=== PATIENT | male | born 1970 | race Caucasian/White ===

== ENCOUNTER → 2018-04-30 14:48 | Outpatient (CLI) | payer OTHER, SELFPAY ==
[2018-04-17 15:54] VITALS: BMI 41.8
--- NOTE | 2018-04-30 14:50 | ECHOD_ITS ---
Reason For Study: HTN Procedure This was a 2D Doppler, Color Flow transthoracic echocardiogram. Exam performed in department. Left Ventricle Normal LV size. Moderate concentric left ventricular hypertrophy. Left ventricular systolic function is normal. The estimated ejection fraction is 60 %. No regional wall motion abnormalities noted. Right Ventricle Normal RV size. Normal systolic function. Atria The left atrium is severely enlarged. The right atrium is mildly enlarged. Mitral Valve Normal mitral valve. Tricuspid Valve Normal tricuspid valve. Mild (1+) tricuspid valve insufficiency. Pulmonary artery systolic pressure is 28 mmHg. Aortic Valve Normal aortic valve. Pulmonic Valve Normal pulmonic valve. Great Vessels Normal aortic root. The pulmonary artery is normal size. Normal inferior vena cava. Pericardium/Pleural No pericardial effusion. MMode/2D Measurements & Calculations LVIDd: 4.8 cm IVSd: 1.7 cm Ao root diam: 3.9 cm LVIDs: 2.5 cm LVPWd: 1.5 cm LA dimension: 5.5 cm RVDd: 4.1 cm FS: 49.4 % LAV(MOD-bp): 162.0 ml LA A4 area: 41.7 cm2 RA A4 area: 25.7 cm2 LAV(MOD-bp) Indexed: 63.7 ml/m2 LAV(MOD-sp2): 127.5 ml LAV(MOD-sp4): 170.7 ml Time Measurements MV dec time: 0.19 sec Doppler Measurements & Calculations MV E max luigi: 74.3 cm/sec Med Peak E' Luigi: 7.4 cm/sec MV V2 max: 77.8 cm/sec MV A max luigi: 62.2 cm/sec E/E' med: 10.0 MV max P.4 mmHg MV E/A: 1.2 MV V2 mean: 35.0 cm/sec MV mean P.63 mmHg MV V2 VTI: 26.9 cm MV P1/2t max luigi: 79.3 cm/sec Ao V2 max: 141.6 cm/sec LV V1 max: 122.5 cm/sec MV P1/2t: 61.6 msec Ao max P.0 mmHg LV V1 max P.0 mmHg MV dec slope: 376.9 cm/sec2 MVA(P1/2t): 3.6 cm2 PA V2 max: 98.2 cm/sec TR max luigi: 243.1 cm/sec TR max P.6 mmHg Interpretation Summary Normal LV size. Moderate concentric left ventricular hypertrophy. Left ventricular systolic function is normal. The estimated ejection fraction is 60 %. Pulmonary artery systolic pressure is 28 mmHg. The left atrium is severely enlarged. Ordering Physician: Dinesh Mena Referring Physician: Reji Andre Performed By: Devon Robles RCS
== END ==
PROVIDERS: Family Provider Family Medicine; PCP Family Medicine; Referring Provider Internal Medicine Cardiovascular Disease; Visit Provider Internal Medicine Cardiovascular Disease
DX: I10 Essential (primary) hypertension (principal); I42.1 Obstructive hypertrophic cardiomyopathy
CPT/HCPCS: 93306

== ENCOUNTER → 2019-05-13 13:23 | Outpatient (CLI) | payer OTHER, SELFPAY ==
[2019-04-18 15:52] VITALS: BMI 42.7
[2019-05-13 09:11] LABS: Color, Urine Yellow (Yellow); Glucose, Dipstick Normal (Normal); Ketone-Dipstick Negative (Negative); Leukocyte Esterase-Dipstick Negative /ul (Negative); Nitrite-Dipstick Negative (Negative); Occult Blood-Urine Negative /ul (Negative); Protein-Dipstick Negative (Negative); Specific Gravity, Urine 1.015 (1.002-1.030); Urine Bilirubin Dipstick Negative (Negative); Urine Clarity Clear (Clear); Urine Urobilinogen Normal (Normal)
[2019-05-13 10:07] LABS: Absolute Lymphocyte Count 2.23 X10^3/uL (0.83-4.51); Absolute Neutrophil Count 2.2 X10^3/uL (2.0-7.7); Basophil# 0.04 X10^3/uL; Basophil% 0.8 % (0-1); Eosinophil# 0.22 X10^3/uL; Eosinophils% 4.2 % (0-5); Hematocrit 43.4 % (40-54); Hemoglobin 14.5 g/dL (13.0-16.5); Lymphocyte # 2.23 X10^3/ul (4.0); Lymphocyte % 42.5 % (19-41); Mean Corp Hgb Conc 33.4 g/dL (32-36); Mean Corpuscular Hgb 29.2 pg (27.0-32.0); Mean Corpuscular Volume 87.5 fL (80-94); Mean Platelet Vol. 9.8 fl (6.2-12.0); Monocyte# 0.51 X10^3/uL; Monocyte% 9.7 % (0-10); NRBC Flagged by Analyzer 0 % (0-5); Neutrophil # 2.23 X10^3/uL (2.7-7.7); Neutrophil % 42.4 % (47-70); Platelet Count 203 K/mm3 (150-450); RBC Distribution Width CV 13.6 % (11.6-14.6); Red Blood Count 4.96 M/mm3 (4.6-6.2); White Blood Count 5.3 K/mm3 (4.4-11.0)
[2019-05-13 10:48] LABS: AST(SGOT) 25 U/L (15-37); Alanine Aminotransfer ALT/SGPT 48 U/L (16-61); Albumin, Serum 3.8 g/dL (3.2-5.0); Alkaline Phosphatase 72 U/L (45-117); Anion Gap 7 (5-15); BUN 19 mg/dL (7-18); BUN/Creat Ratio 22.4 RATIO (10-20); Calcium,Total 8.5 mg/dL (8.5-10.1); Chloride 102 mmol/L (98-107); Cholesterol 148 mg/dL (200); Creatinine, Serum 0.85 mg/dL (0.70-1.30); EST Glomerular Filtration Rate 102 mL/min (>60); Est Glom Filt Rate - Afr Amer 124 mL/min (>60); Glucose 107 mg/dL (74-106); High Density Lipoprotein 46 mg/dL; Protein, Total 7.8 g/dL (6.4-8.2); Sodium Level 137 mmol/L (136-145); Triglycerides 196 mg/dL; Very Low Density Lipoprotein 39 mg/dL (5-40)
--- NOTE | 2019-05-13 13:23 | STEWCON_ITS ---
Reason For Study: Cardiomyopathy Stress Results Protocol: Andrew Protocol WITH DEFINITY Maximum Predicted HR: 172 bpm Target HR: 146 bpm % Maximum Predicted HR: 82 % DurationHeart Rate Stage (mm:ss) (bpm) BP Comment Baseline 52 118/84No Chest Pain; 6 ML Diluted Definity Andrew Protocol Stage I 3:00 82 134/72No Chest Pain Andrew Protocol Stage II 3:00 98 140/62No Chest Pain; Mild Dyspnea Andrew Protocol Stage III 3:00 127 142/74No Chest Pain; Moderate Dyspnea Andrew Protocol Stage IV 0:30 141 / No Chest Pain; Moderate Dyspnea Recovery 68 130/80No Chest Pain; No Dyspnea Stress Duration: 9:30 mm:ss Maximum Stress HR: 141 bpm METS: 11 Baseline Echocardiogram Findings Stress Echo Wall motion Data Resting WM Intermediate WM Stress WM MMode/2D Measurements & Calculations LVIDd: 5.0 cm IVSd: 1.3 cm LVIDs: 3.2 cm LVPWd: 1.3 cm FS: 35.2 % Interpretation Summary Exercise stress echo. 48-year-old man with a history of hypertrophic cardiomyopathy. Resting EKG. Resting EKG demonstrated sinus bradycardia with a rate of 51 bpm normal intervals are noted resting blood pressures 118/84 mmHg. The patient exercised according to regular Andrew protocol for total duration of 9 minutes and 30 seconds. The maximum heart rate attained was 142 bpm which was 82% of maximum predicted heart rate the maximum workload was 11.9 metabolic equivalents. At rest there were no ST or T wave changes noted suggest ischemia peak exercise upsloping ST changes only were noted with no meet the criteria for ischemia. No clinical angina was noted the test was terminated due to dyspnea. No arrhythmias were noted. The resting blood pressure was 118/84 with a peak blood pressure 158/80 mmHg. Stress echocardiogram. Stress echocardiographic images were obtained with Definity enhancement. The baseline echocardiogram demonstrated wall thickness of less than 1.7 cm. The estimated ejection fraction at rest was 65%. During exercise there was no chamber obliteration noted. No wall motion abnormalities were present. Conclusion: Exercise stress test with no EKG criteria for ischemia. Normal resting and stress echocardiographic images. Preserved ejection fraction. No arrhythmias noted. Excellent functional capacity Ordering Physician: Dinesh Mena Referring Physician: Reji Andre Performed By: Meme Baron, KAN, RVT
== END ==
PROVIDERS: PCP Family Medicine; Referring Provider Internal Medicine Cardiovascular Disease; Visit Provider Internal Medicine Cardiovascular Disease
DX: Z00.00 Encounter for general adult medical examination without abnormal findings (principal); I42.1 Obstructive hypertrophic cardiomyopathy; I10 Essential (primary) hypertension; Z12.5 Encounter for screening for malignant neoplasm of prostate
CPT/HCPCS: 36415; 80053; 80061; 81002; 84153; 85025; 93017; 93350; Q9957; A4216; C8928; G0103

== ENCOUNTER 2020-05-18 10:21 | Day surgery (SDC) | payer OTHER, SELFPAY ==
[2020-04-21 08:26] VITALS: BMI 44.1
--- NOTE | 2020-05-11 14:00 | RAD_ITS ---
STUDY: X-RAY CHEST REASON FOR EXAM: Male, 49 years old. dyspnea TECHNIQUE: PA and lateral views of the chest. COMPARISON: None. FINDINGS: The lungs are clear and expanded. There is no demonstrated pleural abnormality. There is moderate cardiac enlargement. Normal mediastinum and maddy. Normal visualized pulmonary arteries. Normal visualized aortic arch and descending thoracic aorta. Normal visualized thoracic spine. Normal visualized ribs, clavicles, and shoulders. There is no demonstrated abnormality of the visualized soft tissue structures of the upper abdomen. RAD/Chest PA and Lateral IMPRESSION: No active disease. Cardiomegaly. Electronically Signed: Kai Santiago MD at 9:14 EST Tel , Service support ,
[2020-05-11 14:50] LABS: Anion Gap 6 (5-15); BUN 17 mg/dL (7-18); BUN/Creat Ratio 17.5 RATIO (10-20); Calcium,Total 8.9 mg/dL (8.5-10.1); Chloride 107 mmol/L (98-107); Creatinine, Serum 0.97 mg/dL (0.70-1.30); EST Glomerular Filtration Rate 87 mL/min (>60); Est Glom Filt Rate - Afr Amer 106 mL/min (>60); Glucose 102 mg/dL (74-106); Potassium 3.9 mmol/L (3.5-5.1); Sodium Level 140 mmol/L (136-145)
[2020-05-15 07:57] VITALS: BMI 44.1
--- NOTE | 2020-05-18 05:58 | HP_ITS ---
[facility] History of Present Illness Details: SHARLENE RAY, is a 49 M who presents to the office today for a follow- up visit. He is a gentleman with a history of hypertrophic cardiomyopathy with a hyperdynamic ventricle. He has been doing well since his last visit. He has had a few episodes of dizziness recently and he did activate his Fitbit and he was noted to be in atrial fibrillation. He was referred to the hypertrophic cardiomyopathy clinic at the [facility]. He had an echocardiogram as well as an MRI. The report of this demonstrated mild asymmetrical septal hypertrophy. There was also mild systolic anterior motion of the mitral valve with mild regurgitation. He has had at least one episode of heart pounding and occasional dizziness. He has had no other cardiac symptoms and he continues to take his beta-blockers. His physical exam demonstrates clear lung gil irregular rate and rhythm and no pedal edema. Electrocardiogram today does confirm atrial fibrillation with a rate of 84 bpm. Intake Vital Signs 04/21/20 Height 6 ft 04/21/20 Weight: 326 lb 04/21/20 BMI 44.1 04/21/20 BP 132/89 H 04/21/20 Respiration 18 04/21/20 Pulse 88 04/21/20 Pulse Oximetry (%) 96 Intake Visit Reasons: 1 Y FU Allergies poison mark Adverse Reaction (Severe, Uncoded 04/21/20 08:26) Unknown Medications metoprolol succinate 50 mg tablet,extended release 24 hr 50 mg PO QDAY tab 04/06/17 [History Confirmed 04/21/20] rivaroxaban 20 mg tablet 20 mg PO DAILY #60 tab 04/21/20 [Rx Confirmed 04/21/20] Ejection fraction %: 60 to 64 [facility] Medical History Essential (primary) hypertension (Chronic) Hypertrophic obstructive cardiomyopathy (Chronic) Obesity (Chronic) Obstructive sleep apnea (Chronic) Family History Father No problems noted. Mother CVA (cerebral vascular accident) Social History (Updated 04/21/20 @ 15:[address] Dinesh Mena MD) Smoking Status: Former smoker pack-years: 20 ROS Const Const: Negative for fatigue, weakness, headache(s), frequent falls, difficulty sleeping or excessive sweating Eyes Eyes: Negative for loss of peripheral vision, transient loss of vision, blurry vision, double vision or tunnel vision ENT ENT: Negative for headache(s), dizziness, Nosebleed/epistaxis or balance problems Cardio Chest Pain: No Palpitations: No Edema: None Muscle aches with walking: None Resp Respiratory: Positive for SOB with activity; negative for SOB at rest, SOB orthopnea\SOB lying down, Cough or paroxysmal nocturnal dyspnea GI GI: Negative nausea, vomiting, heartburn or black,tarry stools : Negative for hematuria Musc Musc: Negative for muscle aches/ myalgia, muscle weakness, joint pain or balance problems Skin Skin: Negative non-healing lesions, rash or unusual bruising Neuro Neuro: Positive for near syncope (has a couple episodes monthly, starts to see stars); negative for dizziness, lightheadedness, syncope, orthostatic symptoms, frequent falls, headache(s), weakness, blurry vision, double vision or lack of coordination René Hematologic/Lymphatic: Negative for easy bleeding or easy bruising Endo Endo: Negative for fatigue, excessive sweating or increased thirst/drinking Psych Psych: Negative for anxiety or depression Allergy Allergy/Immunology: Negative for hives, Negative for rash Cardiology Exam Const Appearance: cooperative, healthy appearing, no acute distress, well developed and well groomed Nutritional Appearance: average body habitus and well nourished Orientation: alert, awake and oriented x3 Head Head: normal to inspection, normocephalic and atraumatic Ears: hearing grossly normal bilaterally and external ears normal Nose: external nose normal, nares normal, nasal mucous membranes and turbinates normal, septum normal, no nasal discharge Face and Sinus: face symmetric Mouth: oral mucosae normal, tongue normal, oropharynx normal and moist mucous membranes Teeth and gingiva: dentition normal Throat: posterior oropharynx normal, tonsils normal and uvula midline Eyes General: appearance normal, both eyes and all related structures Eyelids: eyelids normal Conjunctivae: conjunctivae normal Pupils: PERRL, normal by confrontation and accommodation normal EOM: EOM intact bilaterally Neck Neck: normal visual inspection, trachea midline and no JVD JVD: +5 Carotids: normal carotid upstroke and bounding pulses Chest Chest inspection: normal inspection of the chest, symmetric chest movement and normal respiratory effort Auscultation: Bilateral: Clear to Auscultation Cardio Palpation: normal PMI Rate: regular rate Rhythm: regular rhythm Heart sounds: S1 normal, S2 normal and normal, physiologic split S2; negative rub, gallop or murmur GI GI: normal to inspection, soft, no hepatosplenomegaly and bowel sounds present Neuro General: alert, awake, oriented x3, gait normal, moves all extremities and no focal sensory deficit Skin Skin: no rashes or lesions noted Extremities Pulses: Normal: Right Femoral Pulse, Left Femoral Pulse, Right Dorsalis Pedis Pulse, Left Dorsalis Pedis Pulse, Right Posterior Tibial Pulse, Left Posterior Tibial Pulse, Right Radial Pulse, Left Radial Pulse Lower Extremity Edema: None: Bilateral Musculoskel Musculoskeletal: No joint tenderness Psych Psychological: normal affect Assessment & Plan 1. New onset atrial fibrillation I48.91 Plan He does have evidence of new onset atrial fibrillation. The duration of the above is not entirely clear however to be appropriate to anticoagulate him and attempt a DC cardioversion. He will continue on his beta-marla as his rate appears to be fairly controlled. His last echocardiogram had demonstrated an ejection fraction of 65% with no wall motion abnormalities present. Orders Orders: Cardioversion 1 Month Basic Metabolic Profile (BMP) 3 Weeks 2. Hypertrophic obstructive cardiomyopathy I42.1 Plan He does have a history of hypertrophic cardiomyopathy he underwent stress testing a year ago with no evidence of ischemia and no significant arrhythmias noted. At this time I would not repeat it. His ejection fraction has been preserved. 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
--- NOTE | 2020-05-18 11:55 | CARDIOVERS ---
Cardioversion Cardioversion: DC cardioversion. 49-year-old male with a history of hypertrophic cardiomyopathy and persistent atrial fibrillation. Patient has been anticoagulated for at least 3 weeks. The patient was seen by Dr. Clemens of the critical care division. Informed consent was obtained. Anterior posterior pads were then applied. The patient was given 100 mg of intravenous propofol and then 200 J of synchronized DC cardioversion energy were applied with prompt reversal to sinus rhythm. The patient tolerated the procedure well. Patient will continue current medical therapy. Conclusion: Successful DC cardioversion from atrial fibrillation to sinus rhythm. Continue current medical therapy. Follow off his EKG protocol.
--- NOTE | 2020-05-18 13:24 | PCM.OP.PRO ---
Problem List (1) Morbid obesity due to excess calories Status: Chronic (2) ARNAV (obstructive sleep apnea) Status: Chronic (3) New onset atrial fibrillation Status: Acute (4) Essential (primary) hypertension Status: Chronic (5) Hypertrophic obstructive cardiomyopathy Status: Chronic Procedure Report Date of Procedure: 05/18/20 - Conscious sedation CONSCIOUS SEDATION REPORT BRIEF HISTORY OF PRESENT ILLNESS: The patient is a 49-year-old male who presented to [facility] for an elective outpatient cardioversion due to underlying atrial fibrillation. The patient reports no PO intake since midnight. The patient does have a history of obstructive sleep apnea. The patient reports a history of smoking, but denies COPD. The patient denies any recent constitutional symptoms such as fevers, chills, nausea or vomiting. The patient denies previous anesthetic complications. Patient's last ejection fraction was noted at 65%. Patient did take Xarelto on the day of the procedure PHYSICAL EXAMINATION: VITAL SIGNS: Reviewed and were acceptable. GENERAL: The patient is a female male, in no apparent distress, speaking in full sentences. HEENT: Normocephalic, atraumatic. Mucous membranes are moist and pink. Good mouth opening noted. Trachea is midline. Good neck mobility. MP IV CHEST: S1, S2 irregularly irregular. No murmurs, rubs or gallops were noted. LUNGS: Clear to auscultation bilaterally without appreciable wheezes, rales or rhonchi. ABDOMEN: Soft, nontender, nondistended. Positive bowel sounds. EXTREMITIES: There is no clubbing, cyanosis or edema. ASA Class: II DESCRIPTION OF PROCEDURE: After confirmation of informed consent, the patient's anesthesia plan was reviewed in detail. Propofol was chosen. Risks and benefits were reviewed and the patient agreed to proceed. At 11:43 AM, the patient was given 40 mg of propofol. The patient required a total of 100 mg of propofol throughout the procedure to achieve appropriate sedation. The patient achieved an appropriate level of sedation and received 1 attempt synchronized cardioversion, at [address] Mena at the bedside. This was successful in achieving normal sinus rhythm. The patient was monitored until 12 PM, at which time the patient reached their baseline mental status and function. The patient tolerated the procedure well. COMPLICATIONS: None ESTIMATED BLOOD LOSS: None RECOMMENDATIONS: Okay to recover in usual fashion. 9xxxx: Other Procedure See Report - [id number] -17 minutes conscious sedation
== END 2020-05-18 12:55 | disposition home or self-care (01) ==
LOC: CLSP 10:21
PROVIDERS: PCP Family Medicine; Referring Provider Internal Medicine Cardiovascular Disease; Visit Provider Internal Medicine Cardiovascular Disease
DX: I48.19 Other persistent atrial fibrillation (principal); I42.1 Obstructive hypertrophic cardiomyopathy; R42 Dizziness and giddiness; I10 Essential (primary) hypertension; G47.33 Obstructive sleep apnea (adult) (pediatric); E66.01 Morbid (severe) obesity due to excess calories; Z79.01 Long term (current) use of anticoagulants; Z79.899 Other long term (current) drug therapy; Z87.891 Personal history of nicotine dependence
CPT/HCPCS: 36415; 71046; 80048; 92960; 93005; J7040

== ENCOUNTER → 2020-12-28 08:53 | Outpatient (CLI) | payer OTHER, SELFPAY | PROVIDERS: PCP Family Medicine | DX: I48.91 Unspecified atrial fibrillation (principal) | CPT/HCPCS: 93225; 93226 ==

== ENCOUNTER 2021-03-26 10:23 | Day surgery (SDC) | payer OTHER, SELFPAY ==
--- NOTE | 2021-02-24 14:00 | RAD_ITS ---
STUDY: X-RAY CHEST REASON FOR EXAM: Male, 50 years old. Shortness of breath, history of A. Fib TECHNIQUE: 2 PA and lateral views of the chest. COMPARISON: None. FINDINGS: The lungs are clear and expanded. There is no demonstrated pleural abnormality. Normal size heart. Normal mediastinum and maddy. Normal visualized pulmonary arteries. Normal visualized aortic arch and descending thoracic aorta. Normal visualized thoracic spine. Normal visualized ribs, clavicles, and shoulders. There is no demonstrated abnormality of the visualized soft tissue structures of the upper abdomen. RAD/Chest PA and Lateral IMPRESSION: Normal x-ray examination of the chest. Electronically Signed: Mike Marks MD at 17:12 EST , Service support ,
[2021-02-24 14:50] LABS: Anion Gap 5 (5-15); BUN 22 mg/dL (7-18); BUN/Creat Ratio 24.8 RATIO (10-20); Calcium,Total 8.9 mg/dL (8.5-10.1); Chloride 108 mmol/L (98-107); Creatinine, Serum 0.89 mg/dL (0.70-1.30); EST Glomerular Filtration Rate 97 mL/min (>60); Est Glom Filt Rate - Afr Amer 117 mL/min (>60); Glucose 116 mg/dL (74-106); Potassium 4.1 mmol/L (3.5-5.1); Sodium Level 141 mmol/L (136-145)
[2021-03-25 07:30] VITALS: BMI 45.0
--- NOTE | 2021-03-26 12:46 | PCM.OP.BLANK ---
Problems Associated Problem List Diagnoses (1) Persistent atrial fibrillation: Operative Report Date of Procedure: 03/26/21 DC cardioversion. 50-year-old male with a history of recurrent atrial fibrillation symptomatic. Patient has been anticoagulated. Standard regimen. The patient was brought to the cardiac catheterization lab in the postabsorptive nonsedated state. Patient was seen by Dr. Clemens of the critical care division. Informed consent was obtained. Anterior-posterior pads were applied. The patient was administered 100 mg of intravenous propofol. 300 J of synchronized DC cardioversion energy were applied with prompt reversal to sinus rhythm. Patient tolerated the procedure well. Postoperative EKG confirmed sinus rhythm. Conclusion: Successful DC cardioversion from atrial fibrillation to sinus rhythm. Follow-up per office regimen.
--- NOTE | 2021-03-26 13:41 | PCM.OP.PRO ---
Assessment & Plan Assessment/Plan (1) New onset atrial fibrillation: (2) Morbid obesity due to excess calories: (3) Hypertrophic obstructive cardiomyopathy: Procedure Report Date of Procedure: 03/26/21 CONSCIOUS SEDATION REPORT BRIEF HISTORY OF PRESENT ILLNESS: The patient is a 50-year-old male who presented to [facility] for an elective outpatient cardioversion due to underlying atrial fibrillation. The patient reports no PO intake since midnight, but is currently therapeutic on anticoagulation. The patient does have a history of obstructive sleep apnea and is compliant with therapy. The patient reports a history of smoking, but denies COPD. The patient denies any recent constitutional symptoms such as fevers, chills, nausea or vomiting. The patient denies previous applicable anesthetic complications. Patient's last known ejection fraction was 60%. Patient did take Xarelto prior to the procedure PHYSICAL EXAMINATION: VITAL SIGNS: Reviewed and were acceptable. GENERAL: The patient is a male, in no apparent distress, speaking in full sentences. HEENT: Normocephalic, atraumatic. Mucous membranes are moist and pink. Good mouth opening noted. Trachea is midline. Good neck mobility. MP IV CHEST: S1, S2 irregularly irregular. No murmurs, rubs or gallops were noted. LUNGS: Clear to auscultation bilaterally without appreciable wheezes, rales or rhonchi. ABDOMEN: Soft, nontender, nondistended. Positive bowel sounds. EXTREMITIES: There is no clubbing, cyanosis or edema. ASA Class: II DESCRIPTION OF PROCEDURE: After confirmation of informed consent, the patient's anesthesia plan was reviewed in detail. Propofol was chosen. Risks and benefits were reviewed and the patient agreed to proceed. At 12:05 PM, the patient was given 40 mg of propofol. The patient required a total of 100 mg of propofol throughout the procedure to achieve appropriate sedation. The patient achieved an appropriate level of sedation and received one attempt synchronized cardioversion, at [address] Mena at the bedside. This was successful in achieving normal sinus rhythm. The patient was monitored until 12:17 PM, at which time the patient reached their baseline mental status and function. The patient tolerated the procedure well. COMPLICATIONS: None ESTIMATED BLOOD LOSS: None RECOMMENDATIONS: Okay to recover in usual fashion. Procedures Pulmonary 9xxxx: [id number] Con Sedation
== END 2021-03-26 23:59 | disposition home or self-care (01) ==
LOC: CLSP 10:28
PROVIDERS: Physician Assistant Medical; PCP Family Medicine; Referring Provider Internal Medicine Cardiovascular Disease; Visit Provider Internal Medicine Cardiovascular Disease
DX: I48.19 Other persistent atrial fibrillation (principal); I42.1 Obstructive hypertrophic cardiomyopathy; E66.01 Morbid (severe) obesity due to excess calories; Z68.42 Body mass index [BMI] 45.0-49.9, adult; I10 Essential (primary) hypertension; G47.33 Obstructive sleep apnea (adult) (pediatric); Z79.01 Long term (current) use of anticoagulants; Z79.899 Other long term (current) drug therapy
CPT/HCPCS: 36415; 71046; 80048; 92960; 93005; J7040

== ENCOUNTER → 2021-09-11 | Outpatient (CLI) | payer OTHER, SELFPAY ==
[2021-09-11 09:15] LABS: Absolute Lymphocyte Count 1.96 X10^3/uL (0.83-4.51); Absolute Neutrophil Count 2.2 X10^3/uL (2.0-7.7); Basophil# 0.03 X10^3/uL; Basophil% 0.6 % (0-1); Eosinophil# 0.16 X10^3/uL; Eosinophils% 3.3 % (0-5); Hematocrit 44.4 % (40-54); Hemoglobin 14.8 g/dL (13.0-16.5); Lymphocyte # 1.96 X10^3/ul (0.83-4.51); Lymphocyte % 40.5 % (19-41); Mean Corp Hgb Conc 33.3 g/dL (32-36); Mean Corpuscular Hgb 29.5 pg (27.0-32.0); Mean Corpuscular Volume 88.4 fL (80-94); Monocyte# 0.44 X10^3/uL; Monocyte% 9.1 % (0-10); NRBC Flagged by Analyzer 0 % (0-5); Neutrophil # 2.23 X10^3/uL (2.7-7.7); Neutrophil % 46.1 % (47-70); Platelet Count 198 K/mm3 (150-450); RBC Distribution Width CV 13.2 % (11.6-14.6); RBC Distribution Width SD 43.1 fl (35.1-43.9); Red Blood Count 5.02 M/mm3 (4.6-6.2); White Blood Count 4.8 K/mm3 (4.4-11.0)
[2021-09-11 09:46] LABS: AST(SGOT) 19 U/L (15-37); Alanine Aminotransfer ALT/SGPT 41 U/L (16-61); Albumin, Serum 3.7 g/dL (3.2-5.0); Alkaline Phosphatase 59 U/L (45-117); Anion Gap 4 (5-15); BUN 21 mg/dL (7-18); BUN/Creat Ratio 27.7 RATIO (10-20); Calcium,Total 8.8 mg/dL (8.5-10.1); Chloride 108 mmol/L (98-107); Cholesterol 134 mg/dL (200); Creatinine, Serum 0.76 mg/dL (0.70-1.30); EST Glomerular Filtration Rate 115 mL/min (>60); Est Glom Filt Rate - Afr Amer 139 mL/min (>60); Globulin 3.7 g/dL (2.2-4.2); Glucose 117 mg/dL (74-106); High Density Lipoprotein 48 mg/dL; Potassium 4.1 mmol/L (3.5-5.1); Protein, Total 7.4 g/dL (6.4-8.2); Sodium Level 139 mmol/L (136-145); Triglycerides 109 mg/dL; Very Low Density Lipoprotein 22 mg/dL (5-40)
== END | disposition home or self-care (01) ==
LOC: LAB 08:08
PROVIDERS: PCP Family Medicine; Visit Provider Family Medicine
DX: Z00.00 Encounter for general adult medical examination without abnormal findings (principal); I48.91 Unspecified atrial fibrillation; I10 Essential (primary) hypertension; Z12.5 Encounter for screening for malignant neoplasm of prostate
CPT/HCPCS: 36415; 80053; 80061; 84153; 85025; G0103

== ENCOUNTER → 2021-10-11 | Outpatient (CLI) | payer OTHER, SELFPAY ==
--- NOTE | 2021-10-11 09:58 | ECHOD_ITS ---
Reason For Study: HOCM Procedure This was a 2D Doppler, Color Flow transthoracic echocardiogram. Exam performed in department. Left Ventricle Normal LV size. Moderate concentric left ventricular hypertrophy. Left ventricular systolic function is normal. The estimated ejection fraction is 60 %. Stage 2 diastolic dysfunction. No regional wall motion abnormalities noted. Right Ventricle Normal RV size. Normal systolic function. Atria The left atrium is severely enlarged. The right atrium is moderately enlarged. Mitral Valve Normal mitral valve. Tricuspid Valve Normal tricuspid valve. Mild (1+) tricuspid valve insufficiency. Pulmonary artery systolic pressure is 30 mmHg. Aortic Valve Normal aortic valve. Pulmonic Valve Normal pulmonic valve. Great Vessels Normal aortic root. The pulmonary artery is normal size. Normal inferior vena cava. Pericardium/Pleural No pericardial effusion. MMode/2D Measurements & Calculations RVDd: 4.3 cm Ao root diam: 3.5 cm LAV(MOD-bp): 184.7 ml LAV(MOD-bp) Indexed: 72.5 ml/m2 LAV(MOD-sp2): 137.1 ml LAV(MOD-sp4): 202.9 ml SV(MOD-sp4): 69.8 ml SV(sp4-el): 72.5 ml LVAd ap4: 31.6 cm2 LVLd ap4: 8.2 cm EDV(MOD-sp4): 102.5 ml EDV(sp4-el): 103.7 ml LVAs ap4: 15.4 cm2 LVLs ap4: 6.5 cm ESV(MOD-sp4): 32.7 ml ESV(sp4-el): 31.2 ml EF(MOD-sp4): 68.1 % EF(sp4-el): 69.9 % LA A4 area: 46.3 cm2 LA dimension(2D): 5.9 cm RA A4 area: 31.0 cm2 Time Measurements MV dec time: 0.22 sec Doppler Measurements & Calculations MV E max luigi: 68.0 cm/sec Lat Peak E' Luigi: 13.1 cm/sec Med Peak E' Luigi: 7.9 cm/sec MV A max luigi: 39.9 cm/sec E/E' lat: 5.2 E/E' med: 8.6 MV E/A: 1.7 MV dec slope: 308.1 cm/sec2 Ao V2 max: 149.8 cm/sec LV V1 max: 126.6 cm/sec Ao max P.0 mmHg LV V1 max P.4 mmHg Ao V2 mean: 108.6 cm/sec LV V1 mean P.8 mmHg Ao mean P.3 mmHg LV V1 mean: 92.5 cm/sec Ao V2 VTI: 43.2 cm LV V1 VTI: 34.3 cm PA V2 max: 122.6 cm/sec TR max luigi: 259.4 cm/sec PA V2 mean: 78.6 cm/sec TR max P.9 mmHg ECHO/Echo Complete Interpretation Summary Normal LV size. Left ventricular systolic function is normal. The estimated ejection fraction is 60 %. The left atrium is severely enlarged. The right atrium is moderately enlarged. Stage 2 diastolic dysfunction. Moderate concentric left ventricular hypertrophy. Ordering Physician: Lacy Mcgarry Referring Physician: Lacy Mcgarry Performed By: Senait Mahoney RCS
== END | disposition home or self-care (01) ==
LOC: CVS 09:57
PROVIDERS: PCP Family Medicine; Referring Provider Physician Assistant Medical; Visit Provider Physician Assistant Medical
DX: I42.1 Obstructive hypertrophic cardiomyopathy (principal)
CPT/HCPCS: 93306

== ENCOUNTER → 2021-11-22 | Outpatient (CLI) | payer OTHER, SELFPAY ==
--- NOTE | 2021-11-22 12:24 | STEWCON_ITS ---
Reason For Study: Dyspnea; Cardiomyopathy Stress Results Protocol: Andrew Protocol WITH DEFINITY Maximum Predicted HR: 169 bpm Target HR: 144 bpm % Maximum Predicted HR: 84 % DurationHeart Rate Stage (mm:ss) (bpm) BP Comment Baseline 70 124/82No Chest Pain; 4 ML Diluted Definity Andrew Protocol Stage I 3:00 82 130/74No Chest Pain Andrew Protocol Stage II 3:00 96 144/68No Chest Pain; Mild Dyspnea Andrew Protocol Stage III 3:00 130 148/78No Chest Pain; Moderate Dyspnea Andrew Protocol Stage IV 0:30 142 / No Chest Pain; Moderate Dyspnea Recovery 66 130/80No Chest Pain Stress Duration: 9:30 mm:ss Maximum Stress HR: 142 bpm METS: 12 Baseline Echocardiogram Findings Stress Echo Wall motion Data Resting WM Intermediate WM Stress WM Doppler Measurements & Calculations TR max derik: 260.1 cm/sec TR max P.1 mmHg ECHO/Stress Test Echo W/Contrast Interpretation Summary Exercise stress echo. 51-year-old man with a history of hypertrophic cardiomyopathy. Stress protocol: Resting EKG demonstrates sinus bradycardia with a rate of 53 bpm normal interva ls are noted resting blood pressure is 124/82 mmHg. The patient exercised according to regular Andrew protocol for total duration of 9 minutes and 30 seconds. Maximal heart rate attained was 160 bpm w hich was 94% of max impacted heart rate the maximum workload was 12 metabolic equivalents. The jacqueline ent maintained sinus rhythm throughout the recording. At rest there were no ST or T wave changes not ed to suggest ischemia and at peak exercise upsloping ST changes were noted with did not meet the criteria for ischemia. No clinical angina was noted the peak blood pressure was 148/74 mmHg. The test was terminated due to target heart rate being achieved and dyspnea. Stress echocardiogram. Resting echocardiogram demonstrated an ejection fraction of 60% with asymmetric septal hypertrophy. The resting mid cavitary gradient was approximately 1 m??. At peak exercise the re was thickening of all artis reduction of the ventricular cavity size peaking of ejection fraction of 70%. The pressures with Valsalva were over 100 mmHg. Conclusion: Normal exercise stress echo with no EKG criteria for ischemia. Asymmetrical septal hypertrophy with increased gradient with exercise. Ordering Physician: Dinesh Mena Referring Physician: Lacy Mcgarry Performed By: Vivian Carpenter RDCS
== END | disposition home or self-care (01) ==
PROVIDERS: PCP Family Medicine; Referring Provider Physician Assistant Medical; Visit Provider Physician Assistant Medical
DX: I42.1 Obstructive hypertrophic cardiomyopathy (principal); R06.00 Dyspnea, unspecified
CPT/HCPCS: 93017; 93350; J7040; Q9957; A4216; C8928

== ENCOUNTER → 2022-05-30 | Outpatient (CLI) | payer OTHER, SELFPAY ==
--- NOTE | 2022-05-30 08:43 | ECHOCS_ITS ---
Reason For Study: HOCM Procedure This was a 2D Doppler, Color Flow transthoracic echocardiogram. The study was technically difficult. Exam performed in department. Left Ventricle Normal LV size. Mild concentric left ventricular hypertrophy. Left ventricular systolic function is hyperdynamic. The estimated ejection fraction is 65 %. Mid cavitary dynamic gradient 36 mmHg with Valsalva from a resting of 8 mmHg mm/Hg. No regional wall motion abnormalities noted. Right Ventricle Normal RV size. Normal systolic function. Atria The left atrium is severely enlarged. The right atrium is moderately enlarged. Mitral Valve Normal mitral valve. Tricuspid Valve Normal tricuspid valve. Mild (1+) tricuspid valve insufficiency. Pulmonary artery systolic pressure is 30 mmHg. Aortic Valve The aortic valve is not well visualized. Pulmonic Valve The pulmonic valve is not well visualized. Great Vessels Normal aortic root. The pulmonary artery is normal size. Normal inferior vena cava. Pericardium/Pleural No pericardial effusion. Medication 22 gauge I.V. with prn adaptor inserted into right arm. Diluted definity 2ml given slow IV push to enhance endocardial definition. MMode/2D Measurements & Calculations LVIDd: 5.9 cm IVSd: 1.2 cm Ao root diam: 3.5 cm LVIDs: 3.7 cm LVPWd: 1.2 cm RVDd: 4.0 cm FS: 37.2 % LAV(MOD-bp): 133.1 ml LVAd ap4: 38.5 cm2 SV(MOD-sp4): 91.3 ml LAV(MOD-bp) Indexed: 49.6 ml/m2 LVLd ap4: 8.5 cm LAV(MOD-sp2): 124.0 ml EDV(MOD-sp4): 143.4 ml LAV(MOD-sp4): 132.8 ml EDV(sp4-el): 147.9 ml LVAs ap4: 20.4 cm2 LVLs ap4: 6.6 cm ESV(MOD-sp4): 52.2 ml ESV(sp4-el): 53.6 ml EF(MOD-sp4): 63.6 % EF(sp4-el): 63.8 % SV(sp4-el): 94.4 ml LA A4 area: 36.2 cm2 LA dimension(2D): 5.4 cm RA A4 area: 29.9 cm2 Time Measurements MV dec time: 0.24 sec Doppler Measurements & Calculations MV E max luigi: 77.7 cm/sec Lat Peak E' Luigi: 11.4 cm/sec Med Peak E' Luigi: 9.0 cm/sec MV A max luigi: 67.7 cm/sec E/E' lat: 6.8 E/E' med: 8.7 MV E/A: 1.1 Ao V2 max: 151.2 cm/sec LV V1 max: 120.5 cm/sec PA V2 max: 93.1 cm/sec Ao max P.1 mmHg LV V1 max P.8 mmHg TR max luigi: 255.9 cm/sec TR max P.2 mmHg ECHO/Echo Complete W/ Contrast Interpretation Summary Normal LV size. Mild concentric left ventricular hypertrophy. Left ventricular systolic function is hyperdynamic. The estimated ejection fraction is 65 %. The left atrium is severely enlarged. Mid cavitary dynamic gradient 36 mmHg with Valsalva from a resting of 8 mmHg mm /Hg. Contrast injection was performed. Ordering Physician: Lacy Mcgarry/Dinesh Mena Referring Physician: DAVID PINEDA Performed By: Soco Lira RDCS
[2022-05-30 10:01] LABS: Absolute Lymphocyte Count 2.19 X10^3/uL (0.83-4.51); Absolute Neutrophil Count 2.6 X10^3/uL (2.0-7.7); Basophil# 0.05 X10^3/uL; Basophil% 0.9 % (0-1); Eosinophil# 0.15 X10^3/uL; Eosinophils% 2.7 % (0-5); Hematocrit 46.1 % (40-54); Hemoglobin 15.1 g/dL (13.0-16.5); Lymphocyte # 2.19 X10^3/ul (0.83-4.51); Lymphocyte % 39.7 % (19-41); Mean Corp Hgb Conc 32.8 g/dL (32-36); Mean Corpuscular Hgb 29.1 pg (27.0-32.0); Mean Corpuscular Volume 88.8 fL (80-94); Mean Platelet Vol. 9.9 fl (6.2-12.0); Monocyte# 0.49 X10^3/uL; Monocyte% 8.9 % (0-10); NRBC Flagged by Analyzer 0 % (0-5); Neutrophil % 47.1 % (47-70); Platelet Count 221 K/mm3 (150-450); RBC Distribution Width CV 13.6 % (11.6-14.6); RBC Distribution Width SD 44.1 fl (35.1-43.9); Red Blood Count 5.19 M/mm3 (4.6-6.2); White Blood Count 5.5 K/mm3 (4.4-11.0)
[2022-05-30 11:00] LABS: ALB/GLOB Ratio 0.9 RATIO (0.9-2.4); AST(SGOT) 25 U/L (15-37); Alanine Aminotransfer ALT/SGPT 47 U/L (16-61); Albumin, Serum 3.7 g/dL (3.2-5.0); Alkaline Phosphatase 64 U/L (45-117); Anion Gap 4 (5-15); BUN 20 mg/dL (7-18); BUN/Creat Ratio 23.7 RATIO (10-20); Calcium,Total 8.6 mg/dL (8.5-10.1); Chloride 109 mmol/L (98-107); Cholesterol 143 mg/dL (200); Creatinine, Serum 0.84 mg/dL (0.70-1.30); EST Glomerular Filtration Rate 102 mL/min (>60); Est Glom Filt Rate - Afr Amer 123 mL/min (>60); Globulin 4.1 g/dL (2.2-4.2); Glucose 130 mg/dL (74-106); High Density Lipoprotein 49 mg/dL; Potassium 4.1 mmol/L (3.5-5.1); Protein, Total 7.8 g/dL (6.4-8.2); Sodium Level 138 mmol/L (136-145); Triglycerides 103 mg/dL; Very Low Density Lipoprotein 21 mg/dL (5-40)
== END | disposition home or self-care (01) ==
PROVIDERS: PCP Family Medicine; Referring Provider Physician Assistant Medical; Visit Provider Physician Assistant Medical
DX: Z00.00 Encounter for general adult medical examination without abnormal findings (principal); I42.1 Obstructive hypertrophic cardiomyopathy; Z13.0 Encounter for screening for diseases of the blood and blood-forming organs and certain disorders involving the immune mechanism; I10 Essential (primary) hypertension; Z13.220 Encounter for screening for lipoid disorders; Z12.5 Encounter for screening for malignant neoplasm of prostate
CPT/HCPCS: 36415; 80053; 80061; 85025; 93306; Q9957; A4216; C8929

== ENCOUNTER → 2022-09-24 | Outpatient (CLI) | payer OTHER, SELFPAY ==
[2022-09-24 09:54] LABS: PSA,Total - Annual Screen 0.62 ng/mL (0.00-4.00)
== END | disposition home or self-care (01) ==
LOC: LAB 08:28
PROVIDERS: PCP Family Medicine; Referring Provider Family Medicine; Visit Provider Family Medicine
DX: Z12.5 Encounter for screening for malignant neoplasm of prostate (principal)
CPT/HCPCS: 36415; 84153; G0103

== ENCOUNTER → 2022-12-03 | Outpatient (CLI) | payer OTHER, SELFPAY ==
--- NOTE | 2022-12-03 09:25 | RAD_ITS ---
STUDY: X-RAY CHEST REASON FOR EXAM: Male, 52 years old. Cardioversion TECHNIQUE: PA and lateral views of the chest. COMPARISON: 02/24/2021 FINDINGS: The lungs are clear and expanded. There is no demonstrated pleural abnormality. Normal size heart. Normal mediastinum and maddy. Normal visualized pulmonary arteries. Normal visualized aortic arch and descending thoracic aorta. Normal visualized thoracic spine. Normal visualized ribs, clavicles, and shoulders. There is no demonstrated abnormality of the visualized soft tissue structures of the upper abdomen. RAD/Chest PA and Lateral IMPRESSION: Normal x-ray examination of the chest. Electronically Signed: Kai Santiago MD at 15:31 EDT ,
[2022-12-03 10:48] LABS: Anion Gap 4 (5-15); BUN 14 mg/dL (7-18); Calcium,Total 8.6 mg/dL (8.5-10.1); Chloride 110 mmol/L (98-107); EST Glomerular Filtration Rate 84 mL/min (>60); Est Glom Filt Rate - Afr Amer 101 mL/min (>60); Glucose 122 mg/dL (74-106); Potassium 3.9 mmol/L (3.5-5.1); Sodium Level 139 mmol/L (136-145)
== END | disposition home or self-care (01) ==
LOC: LAB 09:04
PROVIDERS: PCP Family Medicine; Referring Provider Nurse Practitioner Gerontology; Visit Provider Nurse Practitioner Gerontology
DX: I48.0 Paroxysmal atrial fibrillation (principal); I48.19 Other persistent atrial fibrillation
CPT/HCPCS: 36415; 71046; 80048

== ENCOUNTER 2022-12-13 07:55 | Day surgery (SDC) | payer OTHER, SELFPAY ==
--- NOTE | 2022-11-30 09:31 | PCM.HP.BLA ---
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 He is a gentleman with a history of hypertrophic cardiomyopathy with a hyperdynamic ventricle. He was referred to the hypertrophic cardiomyopathy clinic at the [facility]. He had an echocardiogram as well as an MRI. The report of this demonstrated mild asymmetrical septal hypertrophy. There was also mild systolic anterior motion of the mitral valve with mild regurgitation. During his visit in February he was noted to be in atrial fib, he underwent a DCCV in 03/2021. Pt notes that he has had occasionally palpations, fatigue and FONG. He otherwise has been doing well. He has had no dizziness or diaphoresis no near syncope or syncope he has been fatigued as well as having some brain fog. His last echocardiogram was in May of this year demonstrating an ejection fraction of 65% with a severely enlarged left atrium and a mid cavitary gradient of 36 mmHg with Valsalva from a resting of 8 mmHg. You do remember that his obstruction is mainly from his systolic anterior motion of the mitral valve. Intake Vital Signs See EMR Allergies See EMR Medications See EMR [facility] Medical History Essential (primary) hypertension Hypertrophic obstructive cardiomyopathy Obesity Obstructive sleep apnea PAF (paroxysmal atrial fibrillation) Surgical History History of cardioversion (05/18/20) Family History Father No problems noted. Mother CVA (cerebral vascular accident) Social History Smoking Status: Former smoker pack-years: 20 how long ago did patient quit smokin alcohol intake: current alcohol intake frequency: a few times a month Alcohol type: beer substance use type: does not use caffeine: Yes Type: coffee Number of servings: 5 ROS Const Const: Positive for fatigue (Improving since decreasing metoprolol last year); Negative for weakness, headache(s), frequent falls, difficulty sleeping or excessive sweating Eyes Eyes: Negative for loss of peripheral vision, transient loss of vision, blurry vision, double vision or tunnel vision ENT ENT: Negative for headache(s), dizziness, Nosebleed/epistaxis or balance problems Cardio Chest Pain: No Palpitations: Yes (Mild, occurs about 3 times per month while laying down) Edema: None Muscle aches with walking: None Resp Respiratory: Positive for SOB with activity (Stairs or walking long distances); Negative for SOB at rest, SOB orthopnea\SOB lying down, Cough or paroxysmal nocturnal dyspnea GI GI: Negative nausea, vomiting, heartburn or black,tarry stools : Negative for hematuria Musc Musc: Negative for muscle aches/ myalgia, muscle weakness, joint pain or balance problems Skin Skin: Negative non-healing lesions, rash or unusual bruising Neuro Neuro: Positive for lightheadedness (Occasionally when standing up too quickly) and other (C/o brain fog); Negative for dizziness, near syncope, syncope, frequent falls, headache(s), weakness, blurry vision, double vision or lack of coordination René Hematologic/Lymphatic: Negative for easy bleeding or easy bruising Endo Endo: Positive for fatigue (Improving since decreasing metoprolol last year); Negative for excessive sweating or increased thirst/drinking Psych Psych: Negative for anxiety or depression Allergy Allergy/Immunology: Negative for hives and Negative for rash Cardiology Exam Const Appearance: cooperative, healthy appearing, comfortable, no acute distress and well developed Orientation: alert, awake and oriented x3 Head Head: normal to inspection Ears: hearing grossly normal bilaterally Nose: external nose normal Face and Sinus: face symmetric Mouth: oral mucosae normal, lip normal and moist mucous membranes Eyes General: appearance normal, both eyes and all related structures Eyelids: eyelids normal Conjunctivae: conjunctivae normal Pupils: PERRL EOM: EOM intact bilaterally Neck Neck: normal visual inspection and trachea midline; Negative no JVD Carotids: Negative bruit Chest Chest inspection: normal inspection of the chest Auscultation: Bilateral: Clear to Auscultation Cardio Palpation: normal PMI Rate: regular rate Rhythm: irregular rhythm Heart sounds: S1 normal and S2 normal; Negative rub, gallop Murmur: Soft 1/6 murmur is noted. GI GI: soft, no hepatosplenomegaly and bowel sounds present Neuro General: patient alert, patient awake, patient oriented x3 and CN's II-XI intact bilaterally Extremities Pulses: Normal: Right Posterior Tibial Pulse, Left Posterior Tibial Pulse, Right Radial Pulse and Left Radial Pulse Lower Extremity Edema: None: Bilateral Psych Psychological: normal affect Supplemental Info Supplemental Information Echocardiogram 05/30/2022 Interpretation Summary Normal LV size. Mild concentric left ventricular hypertrophy. Left ventricular systolic function is hyperdynamic. The estimated ejection fraction is 65 %. The left atrium is severely enlarged. Mid cavitary dynamic gradient 36 mmHg with Valsalva from a resting of 8 mmHg mm/Hg. Contrast injection was performed. Echocardiogram 2019: Normal LV size. Moderate concentric left ventricular hypertrophy. Left ventricular systolic function is normal. The estimated ejection fraction is 60 %. Pulmonary artery systolic pressure is 28 mmHg. The left atrium is severely enlarged. Exercise stress echo 2020: Conclusion: Exercise stress test with no EKG criteria for ischemia. Normal resting and stress echocardiographic images. Preserved ejection fraction. No arrhythmias noted. Excellent functional capacity Assessment and Plan Assessment and Plan (1) Hypertrophic obstructive cardiomyopathy: Status: Chronic Plan: He appears to be doing fairly well at this time I would not suggest that we make any changes. We are waiting for the clinical trials to see whether he will be a candidate for [employer] or [employer]. He is excited about this possibility. (2) PAF (paroxysmal atrial fibrillation): Status: Acute Plan: Patient was seen by EP. He was placed on Amiodarone and instructed to continue metoprolol, and rivaroxaban. A cardioversion was also recommended. He will proceed with this. (3) ARNAV (obstructive sleep apnea): Status: Chronic Plan: Encouraged patient to continue to use his CPAP.
[2022-12-12 07:41] VITALS: BMI 46.7
--- NOTE | 2022-12-13 10:07 | PCM.OP.PRO ---
Procedure Report Date of Procedure: 12/13/22 DC cardioversion 52-year-old male with a history of hypertrophic cardiomyopathy who presents for DC cardioversion. Patient is noted to be in atrial fibrillation. After informed consent was obtained and it was determined that the patient had been anticoagulated for the requisite amount of time patient was seen by Dr. Loo of the critical care division. Informed consent was obtained. Anterior-posterior pads were applied. The patient was administered 100 mg of intravenous propofol. 300 J of synchronized DC biphasic energy were applied with prompt reversal to sinus rhythm. Patient tolerated the procedure well. Conclusion: Successful DC cardioversion from atrial fibrillation to sinus rhythm. Continue as per office management. Continue as per EP physician at [facility].
--- NOTE | 2022-12-13 10:32 | PCM.OP.PRO ---
Procedure Report Date of Procedure: 12/13/22 CONSCIOUS SEDATION REPORT DATE OF SERVICE: December 13, 2022 BRIEF HISTORY OF PRESENT ILLNESS: The patient is a 52-year-old male who presented to [facility] for elective outpatient cardioversion due to underlying atrial fibrillation. The patient denied any prior anesthetic complications. He has never been previously diagnosed with COPD or asthma. The patient does report a known history of obstructive sleep apnea, for which he currently utilizes nocturnal CPAP therapy. The patient is systemically anticoagulated on Xarelto. His last surface echocardiogram demonstrated an ejection fraction of approximately 65%. PHYSICAL EXAMINATION: VITAL SIGNS: Reviewed and were acceptable. GENERAL: The patient is an obese male, in no apparent distress, speaking in full sentences. HEENT: Normocephalic, atraumatic. Mucous membranes are moist and pink. Good mouth opening noted. Trachea is midline. CHEST: S1, S2 irregularly irregular. No murmurs, rubs or gallops were noted. LUNGS: Clear to auscultation bilaterally without appreciable wheezes, rales or rhonchi. ABDOMEN: Soft, nontender, nondistended. Positive bowel sounds. EXTREMITIES: There is no clubbing, cyanosis or edema. ASA Class: II DESCRIPTION OF PROCEDURE: After confirmation of informed consent, the patient's anesthesia plan was reviewed in detail. Propofol was chosen. Risks and benefits were reviewed and the patient agreed to proceed. At 0956, the patient was given his first bolus of propofol. In total, the patient required 100 mg of propofol to achieve an appropriate level of sedation, after which time, the patient was given a 300 joule synchronized cardioversion by Dr. Mena at the bedside. This was successful in achieving normal sinus rhythm. The patient was monitored until 1010, at which time he reached his baseline mental status and function. The patient tolerated the procedure well. COMPLICATIONS: None ESTIMATED BLOOD LOSS: None RECOMMENDATIONS: Okay to recover in usual fashion. Procedures Pulmonary [id number]: [id number] Con Sedation
== END 2022-12-13 11:00 | disposition home or self-care (01) ==
PROVIDERS: PCP Family Medicine; Referring Provider Internal Medicine Cardiovascular Disease; Visit Provider Internal Medicine Cardiovascular Disease
DX: I42.1 Obstructive hypertrophic cardiomyopathy (principal); I48.0 Paroxysmal atrial fibrillation; I10 Essential (primary) hypertension; Z87.891 Personal history of nicotine dependence; G47.33 Obstructive sleep apnea (adult) (pediatric); Z79.01 Long term (current) use of anticoagulants
CPT/HCPCS: 92960; 93005; J7040

== ENCOUNTER → 2023-05-22 | Outpatient (CLI) | payer OTHER, SELFPAY ==
--- NOTE | 2023-05-22 12:59 | ECHOCS_ITS ---
Reason For Study: HOCM Procedure This was a 2D Doppler, Color Flow transthoracic echocardiogram. The study was technically difficult. Due to body habitus. Contrast injection was performed. Exam performed in department. Left Ventricle Normal LV size. Moderate concentric left ventricular hypertrophy. Left ventricular systolic function is normal. The estimated ejection fraction is 60 %. Resting LV gradient 8 mmHg. Valsalva LV gradient 33 mmHg. No regional wall motion abnormalities noted. Right Ventricle Normal RV size. Normal systolic function. Atria The left atrium is severely enlarged. The right atrium is moderately enlarged. Mitral Valve Normal mitral valve. Tricuspid Valve Normal tricuspid valve. Mild (1+) tricuspid valve insufficiency. Pulmonary artery systolic pressure is 32 mmHg. Aortic Valve Trisinus/trileaflet aortic valve. Pulmonic Valve Normal pulmonic valve. Great Vessels Normal aortic root. The pulmonary artery is normal size. Inferior vena cava collapse with respiration. Pericardium/Pleural No pericardial effusion. Medication 22 gauge I.V. with prn adaptor inserted into left arm. Diluted definity 2.5ml given slow IV push to enhance endocardial definition. MMode/2D Measurements & Calculations LVIDd: 6.3 cm IVSd: 1.6 cm Ao root diam: 3.7 cm LVIDs: 3.8 cm LVPWd: 1.5 cm RVDd: 4.0 cm FS: 39.5 % LAV(MOD-bp): 141.3 ml LVAd ap4: 35.7 cm2 SV(MOD-sp4): 70.0 ml LAV(MOD-bp) Indexed: 52.9 ml/m2 LVLd ap4: 8.6 cm LAV(MOD-sp2): 120.3 ml EDV(MOD-sp4): 122.4 ml LAV(MOD-sp4): 158.2 ml EDV(sp4-el): 125.4 ml LVAs ap4: 20.8 cm2 LVLs ap4: 7.1 cm ESV(MOD-sp4): 52.4 ml ESV(sp4-el): 51.5 ml EF(MOD-sp4): 57.2 % EF(sp4-el): 59.0 % SV(sp4-el): 74.0 ml LA A4 area: 37.3 cm2 LA dimension(2D): 5.9 cm RA A4 area: 26.2 cm2 TAPSE: 2.8 cm Time Measurements MV dec time: 0.25 sec Doppler Measurements & Calculations MV E max luigi: 68.7 cm/sec Lat Peak E' Luigi: 10.8 cm/sec Med Peak E' Luigi: 8.8 cm/sec MV A max luigi: 59.7 cm/sec E/E' lat: 6.4 E/E' med: 7.8 MV E/A: 1.1 MV V2 max: 92.8 cm/sec MV P1/2t max luigi: 92.8 cm/sec Ao V2 max: 140.1 cm/sec MV max P.4 mmHg MV P1/2t: 74.5 msec Ao max P.9 mmHg MV V2 mean: 32.8 cm/sec MV dec slope: 365.0 cm/sec2 Ao V2 mean: 95.7 cm/sec MV mean P.59 mmHg MVA(P1/2t): 3.0 cm2 Ao mean P.2 mmHg MV V2 VTI: 27.2 cm Ao V2 VTI: 33.4 cm AV (velocity ratio): 0.92 LV V1 max: 114.5 cm/sec PA V2 max: 111.2 cm/sec TR max luigi: 268.4 cm/sec LV V1 max P.2 mmHg PA V2 mean: 79.0 cm/sec TR max P.8 mmHg LV V1 mean P.9 mmHg LV V1 mean: 77.9 cm/sec LV V1 VTI: 30.6 cm ECHO/Echo Complete W/ Contrast Interpretation Summary Normal LV size. Left ventricular systolic function is normal. The estimated ejection fraction is 60 %. Moderate concentric left ventricular hypertrophy. The left atrium is severely enlarged. The right atrium is moderately enlarged. Mild (1+) tricuspid valve insufficiency. Contrast injection was performed. Ordering Physician: Lacy Mcgarry Referring Physician: Reji Andre Performed By: Sylwia Kapadia, RDCS, RVT
== END | disposition home or self-care (01) ==
LOC: CVS 12:53
PROVIDERS: PCP Family Medicine; Referring Provider Physician Assistant Medical; Visit Provider Physician Assistant Medical
DX: I42.1 Obstructive hypertrophic cardiomyopathy (principal)
CPT/HCPCS: 93306; Q9957; A4216; C8929

== ENCOUNTER → 2024-05-27 | Outpatient (CLI) | payer OTHER, SELFPAY ==
--- NOTE | 2024-05-27 13:43 | ECHOCS_ITS ---
Reason For Study Reason For Study: DYSPNEA/SOB Procedure This was a 2D Doppler, Color Flow transthoracic echocardiogram. The study was technically difficult. Due to body habitus. Contrast injection was performed. Exam performed in department. Left Ventricle Normal LV size. Mild concentric left ventricular hypertrophy. Sigmoid septum. The left ventricular ejection fraction is 65 %. No regional wall motion abnormalities noted. Right Ventricle Normal RV size. Normal systolic function. Atria Normal left atrium. Normal right atrium. Mitral Valve Normal mitral valve. Tricuspid Valve Normal tricuspid valve. Mild (1+) tricuspid valve insufficiency. Pulmonary artery systolic pressure is 33 mmHg. Aortic Valve The aortic valve is not well visualized. Pulmonic Valve The pulmonic valve is not well visualized. Great Vessels Normal aortic root. Pericardium/Pleural No pericardial effusion. Medication 22 gauge I.V. with prn adaptor inserted into right arm. Diluted definity 4.0ml given slow IV push to enhance endocardial definition. MMode/2D Measurements & Calculations LVIDd: 5.6 cm IVSd: 1.4 cm Ao root diam: 3.7 cm LVIDs: 3.5 cm LVPWd: 1.4 cm RVDd: 4.0 cm FS: 38.8 % LAV(MOD-bp): 109.4 ml LVAd ap4: 24.3 cm2 SV(MOD-sp4): 38.8 ml LAV(MOD-bp) Indexed: 40.6 ml/m2 LVLd ap4: 7.5 cm SI(MOD-sp4): 14.4 ml/m2 LAV(MOD-sp2): 103.1 ml EDV(MOD-sp4): 64.9 ml LAV(MOD-sp4): 108.2 ml EDV(sp4-el): 66.3 ml LVAs ap4: 13.7 cm2 LVLs ap4: 5.9 cm ESV(MOD-sp4): 26.1 ml ESV(sp4-el): 27.1 ml EF(MOD-sp4): 59.8 % EF(sp4-el): 59.2 % SV(sp4-el): 39.2 ml LA A4 area: 30.5 cm2 LA dimension(2D): 5.9 cm RA A4 area: 26.1 cm2 TAPSE: 3.2 cm Time Measurements MV dec time: 0.24 sec Doppler Measurements & Calculations MV E max luigi: 72.7 cm/sec Lat Peak E' Luigi: 11.0 cm/sec Med Peak E' Luigi: 9.8 cm/sec MV A max luigi: 47.1 cm/sec E/E' lat: 6.6 E/E' med: 7.4 MV E/A: 1.5 MV V2 max: 100.9 cm/sec MV P1/2t max luigi: 99.7 cm/sec Ao V2 max: 132.7 cm/sec MV max P.1 mmHg MV P1/2t: 54.9 msec Ao max P.1 mmHg MV V2 mean: 35.0 cm/sec MV dec slope: 531.2 cm/sec2 Ao V2 mean: 96.8 cm/sec MV mean P.71 mmHg MVA(P1/2t): 4.0 cm2 Ao mean P.1 mmHg MV V2 VTI: 29.6 cm Ao V2 VTI: 32.6 cm AV (velocity ratio): 0.90 LV V1 max: 105.7 cm/sec PA V2 max: 100.3 cm/sec TR max luigi: 270.8 cm/sec LV V1 max P.5 mmHg PA V2 mean: 70.2 cm/sec TR max P.3 mmHg LV V1 mean P.8 mmHg LV V1 mean: 79.7 cm/sec LV V1 VTI: 29.4 cm ECHO/Echo Complete W/ Contrast Interpretation Summary Normal LV size. The left ventricular ejection fraction is 65 %. Mild concentric left ventricular hypertrophy. Sigmoid septum. Contrast injection was performed. Ordering Physician: Lacy Mcgarry Referring Physician: Reji Andre Performed By: Sylwia Kapadia RDCS, RVT
== END | disposition home or self-care (01) ==
PROVIDERS: PCP Family Medicine; Referring Provider Physician Assistant Medical; Visit Provider Physician Assistant Medical
DX: I42.1 Obstructive hypertrophic cardiomyopathy (principal); R06.02 Shortness of breath
CPT/HCPCS: 93306; Q9957; A4216; C8929

== ENCOUNTER → 2025-02-03 | Outpatient (CLI) | payer OTHER, SELFPAY ==
--- OUTSIDE RECORDS SUMMARY | 2025-02-03 07:16 | XMS RPT_ITS | CCD ---
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 David Pineda Primary Care Provider Dr. David Pineda Referring Provider Zeferino HADDAD, BOO Mcgee Attending Provider Dr. Dinesh Mena Attending Provider David Pineda MD Primary Care Provider Damian Moya MD Unavailable Dr. David Pineda Primary Care Provider Dr. Dinesh Mena Attending Provider Dr. David Pineda Primary Care Provider Dr. David Pineda Referring Provider Dr. Dinesh Mena Attending Provider Justino Singh Unavailable David Pineda MD Primary Care Provider Damian Moya MD Unavailable Justino Singh MD Unavailable David Pineda MD Primary Care Provider Lacy Acosta Unavailable Dinesh Mena MD Unavailable Dr. David Pineda Primary Care Provider Dr. David Pineda Referring Provider BOO Acosta Attending Provider Dr. Dinesh Mena Attending Provider David Pineda MD Primary Care Provider Lacy Lerma PA-C Unavailable [phone] Lacy Mcgarry PA-C Unavailable Dr. David Pineda MD Primary Care Provider Lacy Acosta Attending Provider [phone] Lacy Acosta Referring Provider Dr. Dinesh Mena MD Attending Provider Dr. David Pineda MD Referring Provider Miguel AMEZQUITA-Harjit Arreaga Attending Provider Filippo Hurtado Attending Provider ThaiDavid Primary Care Unavailable Thai, David Referring Unavailable Filippo Hurtado Attending Unavailable ThaiDavid Referring Unavailable Thai, David Primary Care Unavailable Harjit Rivera NP Attending Unavailable Thai, David Primary Care Unavailable Dinesh Mena Attending Unavailable Thai, David Primary Care Unavailable Lacy Acosta Referring Unavail able Lacy Acosta Attending Unavail able David Pineda Referring Unavailable Thai, David Primary Care Unavailable Lacy Acosta Attending Unavail able DAVID PINEDA Attending Unavailab DAVID Thompson Primary Care Unavailab DAVID Thompson Attending Unavailab le DAVID PINEDA Primary Care Unavailab le Allergies Allergy Classification Reported Allergen(s) Allergy Type Date of Onset Reaction(s) Facility (3 sources) POISON MARK; Translations: [POISON MARK] allergy to substance 06-26-2012 [facility] Work Phone: (12 sources) POISON MARK EXTRACT Drug Allergy 10-21-2022 Itching [facility] (1 source) poison mark extract Drug allergy (disorder) 08-28-2024 [facility] Repository Medications Current Medications Medication Drug Class(es) Dates Sig (Normalized) Sig (Original) CPAP/BIPAP/OTHER (20 sources) Start: 07-05-2022 End: 11-19-2049 CPAP/BIPAP/OTHER Indications: ARNAV (obstructive sleep apnea) .CPAPSettings : auto settings 5-20. 1 Each 07/05/2022 11/19/2049 Active Start: 07-05-2022 End: 11-19-2049 CPAP/BIPAP/OTHER Indications : ARNAV (obstructive sleep apnea) .CPAPSettings : auto settings 5-20. 1 Each 0 07/05/2022 11/19/2049 Active Start: 07-04-2022 End: 07-05-2022 CPAP/BIPAP/OTHER Indications : ARNAV (obstructive sleep apnea) Type .CPAPSettings into a note to see current settings/supplies/DME information. 1 Each 0 07/04/2022 07/05/2022 Discontinued Start: 07-04-2022 End: 11-18-2049 CPAP/BIPAP/OTHER Indications : ARNAV (obstructive sleep apnea) Type .CPAPSettings into a note to see current settings/supplies/DME information. 1 Each 0 07/04/2022 11/18/2049 Active Comment on above: Type .CPAPSettings i nto a note to see current settings/supplies/DME information. .CPAPSettings : auto settings 5-20. levoFLOXacin 750 mg oral tablet (1 source) Quinolone Antimicrobial Start: take 1 tablet by mouth once daily Levofloxacin 750 mg tablet Active 750 mg PO daily August 28, 2024 12:00am 24 hr metoprolol succinate 25 mg extended release oral tablet (20 sources) beta-Adrenergic Anne Marie Start: End: take 1 tablet by mouth once daily Metoprolol Succinate 25 mg tablet extended release 24 hr Active 25 mg PO DAILY June 27, 2024 9:07am Start: 03-15-2022 metoprolol suc cinate ER (TOPROL XL) 50 mg 24 hr tablet Start: 11-24-2021 End: 06-27-2024 take 1 tablet by mouth once daily metoprolol succinate ER (TOPROL XL) 50 mg 24 hr tablet Take 50 mg by mouth once daily. 03/15/2022 Active Start: 12-07-2020 End: 02-24-2021 take 2 tablets by mouth once daily Metoprolol Succinate 50 mg tablet extended release 24 hr Discontinued 25 mg PO daily December 08, 2020 8:28am February 24, 2021 1:58pm Start: 12-07-2020 End: 02-24-2021 take 25 mg by mouth once daily Metoprolol Succinate Di scontinued 25 MG PO daily December 08, 2020 8:28am February 24, 2021 1:58pm Start: 04-06-2017 End: 09-27-2021 take 1 tablet by mouth once daily Metoprolol Succinate 50 mg tablet extended release 24 hr Discontinued 50 mg PO daily February 24, 2021 1:58pm April 09, 2021 2:35pm Start: 01-11-2017 End: 04-04-2022 take 1 tablet by mouth once daily Metoprolol Succinate 25 mg tablet extended release 24 hr Discontinued 25 mg PO DAILY April 09, 2021 1:00am November 24, 2021 6:00pm Start: 06-27-2012 take 1 tablet by ashley th once daily TOPROL XL 50 MG [id number] Dr. Pineda prescribes this:One tablet by mouth daily METOPROLOL SUCCINATE [id number] Dinesh Mena MD Start: 06-27-2012 take 1 tablet by ashley th once daily TOPROL XL 50 MG [id number] One tablet by mouth daily METOPROLOL SUCCINATE [id number] Dinesh Mena MD Start: 06-26-2012 take 1 tablet by ashley th once daily TOPROL XL 25 MG [id number] One tablet by mouth daily METOPROLOL SUCCINATE [id number] Shannan López RN Comment on above: Take 50 mg by mouth once daily. Take 1 tablet by ashley th once daily. multivitamin tablet (20 sources) take 1 tablet by mouth once daily multivitamin tablet Take 1 tablet by mouth once daily. Active take 1 tablet by mouth once ian y multivitamin tablet Take 1 tablet by mouth once daily. 0 Active Comment on above: Take 1 tablet by ashley th once daily. rivaroxaban 20 mg oral tablet (20 sources) Factor Xa Inhibitor Start: 0 End: take 1 tablet by mouth once daily at mealtime rivaroxaban (XARELTO) 20 mg tablet Take 1 tablet by mouth every evening. With meal 03/06/1969 Active Start: 03-06-1969 take 2 tablets by mo uth once daily at mealtime rivaroxaban (XARELTO) 20 mg tablet Take 2 tablets by mouth every evening. With meal 0 03/06/1969 Active Comment on above: Take 2 tablets by mo uth every evening. With meal Take 1 tablet by ashley th every evening. With meal Completed/Discontinued Medications Medication Drug Class(es) Dates Sig (Normalized) Sig (Original) amiodarone hydrochloride 200 mg oral tablet (3 sources) Antiarrhythmic Start: 11-30-2022 End: 03-13-2023 take 1 tablet by mouth once daily Amiodarone 200 mg tablet Discontinued 200 mg PO DAILY November 30, 2022 12:00am March 13, 2023 10:46am aspirin 81 mg delayed release oral tablet (11 sources) Platelet Aggregation Inhibitor, Nonsteroidal Anti-inflammatory Drug Start: 03-13-2023 End: 11-27-2023 Aspirin (Adult Low Dose Aspirin) 81 mg tablet,delayed release (DR/EC) Discontinued 81 mg PO DAILY March 13, 2023 1:00am November 27, 2023 11:30am Start: 01-05-2021 End: 02-24-2021 take 1 tablet by mouth once daily Aspirin (Adult Aspirin Regimen) 81 mg tablet,delayed release (DR/EC) Discontinued 81 mg PO DAILY January 05, 2021 12:00am February 24, 2021 1:58pm benzonatate 100 mg oral capsule (3 sources) Non-narcotic Antitussive Start: 09-04-2017 End: 09-27-2021 take 2 capsules by mouth three times daily as needed benzonatate (TESSALON PERLE) 100 mg capsule Indications: Sinobronchitis Take 2 capsules by mouth three times daily as needed. 30 capsule 0 09/04/2017 09/27/2021 Discontinued (Course of therapy completed) Comment on above: Take 2 capsules by m outh three times daily as needed. cyclobenzaprine hydrochloride 10 mg oral tablet (6 sources) Muscle Relaxant Start: 02-13-2013 End: 02-11-2014 take 1 tablet by mouth three times daily as needed FLEXERIL 10 MG TABS One tablet by mouth three times daily as needed CYCLOBENZAPRINE HCL Dinesh Mena MD hydroCHLOROthiazide 12.5 mg / lisinopril 10 mg oral tablet (6 sources) Thiazide Diuretic, Angiotensin Converting Enzyme Inhibitor Start: 06-26-2012 End: 06-27-2012 take 1 tablet by mouth once daily LISINOPRIL-HYDROCHL OROTHIAZIDE 10-12.5 MG TABS One tablet by mouth daily LISINOPRIL-HYDROCHL OROTHIAZIDE [id number] Shannan López RN MULTIPLE VITAMIN (3 sources) Start: 10-06-2015 take 1 tablet by mouth once daily ONE DAILY TABS One tablet by mouth daily MULTIPLE VITAMIN [id number] Dinesh Mena MD Multivit,Magdiel,Mn-Folic-D3 -Lycop (One A Day Men Complete) 240-25-300 mcg tablet (1 source) Start: 06-27-2024 Magdiel DegrootMn-Fol ic-D3-Lycop (One A Day Men Complete) 240-25-300 mcg tablet Active {tbl} PO June 27, 2024 12:00am pantoprazole 40 mg oral granules (3 sources) Proton Pump Inhibitor Start: 03-13-2023 End: 11-27-2023 take 40 mg by mouth once daily Pantoprazole [address] for susp in packet Discontinued 40 mg PO DAILY March 13, 2023 1:00am November 27, 2023 11:30am Problems Active Problems Problem Classification Problem Date Documented Date Episodic/Chronic Cardiac dysrhythmias (20 sources) Atrial fibrillation; Translations: [Unspecified atrial fibrillation] Onset: 04-06-2020 07-26-2021 Chronic Disorders of lipid metabolism (3 sources) Pure hypercholesterolemia; Translations: [Pure hypercholesterolemia, unspecified] Onset: 04-22-2024 04-17-2023 Chronic Essential hypertension (20 sources) Hypertensive disorder; Translations: [Essential (primary) hypertension] Onset: 06-26-2012 06-26-2012 Chronic Nonspecific chest pain (2 sources) Chest pain; Translations: [Chest pain, unspecified] 06-27-2024 Episodic Other aftercare (1 source) Long-term current use of anticoagulant; 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] 10-16-2023 Episodic Other lower respiratory disease (8 sources) Dyspnea on exertion; Translations: [Other forms of dyspnea] 05-18-2020 Episodic Other nutritional; endocrine; and metabolic disorders (6 sources) Body mass index (BMI) 39.0-39.9, adult; Translations: [Body mass index (BMI) 38.0-38.9, adult] Onset: 02-13-2013 02-11-2014 Chronic Other nutritional; endocrine; and metabolic disorders (8 sources) Morbid obesity; Translations: [Morbid (severe) obesity due to excess calories] 05-18-2020 Chronic Nyla-; endo-; and myocarditis; cardiomyopathy (20 sources) Hypertrophic obstructive cardiomyopathy; Translations: [Hypertrophic cardiomyopathy without obstruction] Onset: 06-27-2012 Resolved: 04-04-2022 06-27-2012 Chronic Residual codes; unclassified (20 sources) Obstructive sleep apnea syndrome; Translations: [Obstructive sleep apnea (adult) (pediatric)] Onset: 01-11-2017 07-26-2021 Chronic Residual codes; unclassified (4 sources) Obstructive sleep apnea (adult) (pediatric); Translations: [Obstructive sleep apnea (adult)(pediatric)] Chronic Syncope (8 sources) Near syncope; Translations: [Syncope and collapse] 05-18-2020 Episodic Past or Other Problems Problem Classification Problem Date Documented Da te Episodic/Chronic Diabetes mellitus without complication (2 sources) Hyperglycemia; Translations: [Hyperglycemia, unspecified] Onset: 04-22-2024 04-22-2024 Episodic Heart valve disorders (3 sources) Cardiac murmur, unspecified; Translations: [Cardiac murmur, unspecified] Onset: 06-26-2012 06-26-2012 Episodic Other screening for suspected conditions (not mental disorders or infectious disease) (20 sources) Patient encounter status; Translations: [Encounter for screening for malignant neoplasm of colon] Onset: 01-16-2017 07-26-2021 Episodic Screening and history of mental health and substance abuse codes (2 sources) Encounter for screening for depression; Translations: [Encounter for screening examination for other mental health and behavioral disorders] Onset: 04-22-2024 Episodic Results Test Name Value Interpretation Reference Range Facility [facility] 10-21-2024 CNCO Letter Text Normal [facility] CNOVon 10-21-2024 CNOV Office Visit (FAMMAS ) ----- SHARLENE DICKSON ([id number]) 1970 M Date Time Provider Department 10/21/24 8:10 AM DAVID PINEDA During your visit today, we recorded the following information about you: Pulse Respiration Blood pressure Weight 52/minute 18/minute 123/80 158.8 kg Marco A Cardoso MA 10/21/2024 8:33 AM Signed Pt here today for 6 month follow up. Denies concerns today. ARMANDO Slaughter October 21, 2024 8:10 AM David iPneda MD 10/21/2024 8:33 AM Signed Subjective Sharlene Dickson is a 54 year old male.Patient presents today for follow-up for multiple medical problems. See list. His chronic medical problems been stable. He is compliant with his medications. He has no new complaints today. Blood pressure is under good control on current medication. He denies any episodes of RVR for his A-fib. He had his Toprol dose reduced to 25 mg daily. He is feeling better since its reduction. Pulse remains low at 52. He remains on long-term anticoagulant. Review of Systems Constitutional: Negative. HENT: Negative. Eyes: Negative. Respiratory: Negative. Cardiovascular: Negative. Gastrointestinal: Negative. Endocrine: Negative. Genitourinary: Negative. Musculoskeletal: Negative. Skin: Negative. Allergic/Immunologic: Negative. Neurological: Negative. Hematological: Negative. Psychiatric/Behavioral: Negative. PAST SURGICAL HISTORY Procedure Laterality Date CARDIOVERSION 05/2020 TONSILLECTOMY HX PAST MEDICAL HISTORY Diagnosis Date Aortic sclerosis Atrial fibrillation (HCC) Cardiomyopathy (HCC) History of cardioversion HOCM (hypertrophic obstructive cardiomyopathy) (HCC) ~2013 Dx ~2012 w/u murmur. HTN (hypertension) ~2012 MR (mitral regurgitation) ~2012 Obstructive sleep apnea Sleep apnea Uses Cpap. Syncope ~2011 x1 in 2011 dehydrated, had a cold. Systolic anterior movement of mitral valve ~2012 Dx 2012. FAMILY HISTORY Problem Relation Age of Onset Stroke Mother Living age 60s. Does not know her well. H/o stroke at age 40s. other (Healthy) Father Living age 60s. Healthy. other (Healthy) Brother Living age 40s. Healthy. other (Healthy) Child 1 child, daughter. Living AND healthy age 23. other (Healthy) Grandchild 1 grandchild, grandson. Living AND healthy age 2 months. SOCIAL HISTORY[1] ALLERGIES No Known Allergies MEDICATIONS: CPAP/BIPAP/OTHER .CPAPSettings : auto settings 5-20. metoprolol succinate ER (TOPROL XL) 50 mg 24 hr tablet Take 50 mg by mouth once daily. (Patient taking differently: Take 25 mg by mouth once daily.) rivaroxaban (XARELTO) 20 mg tablet Take 1 tablet by mouth every evening. With meal multivitamin tablet Take 1 tablet by mouth once daily. Allergies, past surgical history, family history and past medical history were reviewed per this encounter. Medications were reviewed and verified. 04/15/2024 10/18/2024 INTAKE PAIN ASSESSMENT Are you having pain associated with your visit today? No No If pain assessment is 0, no action needed. If pain assessment is positive, please see assessment and plain. Objective BP 123/80 (BP Site: Left Arm, BP Position: Sitting, BP Cuff Size: Large Adult) Pulse (!) 52 Resp 18 Wt (!) 158.8 kg (350 lb) SpO2 93% BMI 47.47 kg/m? Physical Exam Constitutional: Appearance: Normal appearance. HENT: Head: Normocephalic and atraumatic. Nose: Nose normal. Eyes: Extraocular Movements: Extraocular movements intact. Conjunctiva/sclera: Conjunctivae normal. Pupils: Pupils are equal, round, and reactive to light. Cardiovascular: Rate and Rhythm: Normal rate and regular rhythm. Pulses: Normal pulses. Heart sounds: Normal heart sounds. Pulmonary: Effort: Pulmonary effort is normal. Breath sounds: Normal breath sounds. Abdominal: General: Bowel sounds are normal. Palpations: Abdomen is soft. Musculoskeletal: General: Normal range of motion. Cervical back: Normal range of motion and neck supple. Skin: General: Skin is warm and dry. Neurological: General: No focal deficit present. Mental Status: He is alert and oriented to person, place, and time. Psychiatric: Mood and Affect: Mood normal. Behavior: Behavior normal. Procedures Assessment and Plan Encounter Diagnosis ICD-10-CM 1. Hypertension, essential I10 Blood pressure under excellent control on current medication. Continue Toprol. 2. Paroxysmal atrial fibrillation (HCC) I48.0 Stable and well-controlled on Toprol. 3. Hypertrophic cardiomyopathy (HCC) I42.2 Stable. 4. ARNAV (obstructive sleep apnea) G47.33 Improved with CPAP. Continue present medications. Monitor blood pressure regularly. Exercise as tolerated. Maintain good diet. Follow-up in 6 months. David Pineda MD October 21, 2024 10/21/2024 [1] Social History Tobacco Use Smoking status: Former (more content not included)... Normal [facility] Urgent Care Visit Reporton 0 08-28-2024 Urgent Care Visit Report [facility] [address], [address] [place] [address] OFFICE VISIT Date of Service: 08/28/24 MR#: [id number] Acct: [id number] Name: SHARLENE DICKSON Rep #: [id number] : 1970 Provider: BOO Vasquez Age/Sex: 53/M Location: [facility] Status: Signed Intake Vital Signs 06/27/24 08:21 08/28/24 16:46 Height 6 ft 6 ft Weight: 360 lb 350 lb 2 oz BMI 48.8 47.5 BP 123/77 H 124/80 H Blood Pressure Location Lt brachial Lt brachial Position Sitting Sitting Respiration 16 17 Pulse 50 L 59 L Pulse Source NIBP NIBP Temp 98.4 F Temp Source Oral Pulse Oximetry (%) 96 Oxygen Delivery Method room air Intake Visit Reasons: EAR PAIN Chief Complaint: right ear pain/plugged/ringing Vegetable Tier Required: No Is patient in pain?: Yes Allergies poison mark extract Adverse Reaction (Severe, Verified 08/28/24 16:54) NEEDS FOLLOW-UP Have you fallen in the past year?: No Nurse's Note: right ear pain/plugged/ringing x 10 days. Augmentin x 5 days without relief. wisdom tooth extraction 08/02, finished Amoxicillin. s/s began after that time. no physical exam since procedure, all phone call RXs [facility] Medical History PAF (paroxysmal atrial fibrillation) Obstructive sleep apnea Obesity Essential (primary) hypertension Hypertrophic obstructive cardiomyopathy Surgical History History of wisdom tooth extraction History of cardiac ablation for atrial fibrillation (02/17/23) History of cardioversion (05/18/20) Family History Father No problems noted. Mother CVA (cerebral vascular accident) Other History of cardioversion Social History Smoking Status: Former smoker pack-years: 20 how long ago did patient quit smokin alcohol intake: current alcohol intake frequency: a few times a month Alcohol type: beer substance use type: does not use caffeine: Yes Type: coffee Number of servings: 5 HPI HPI Chief Complaint: right ear pain/plugged/ringing Details: SHARLENE DICKSON, is a 53 M who presents to the office today for initial evaluation at the [facility] for approximately 1-1/2-week history of progressively worsening right ear pain with muffled hearing; no complaints of facial pressure/congestion with purulent postnasal drip/cough or left ear pressure. No complaints of fever, chills, myalgias, fatigue, runny nose, or nausea/vomiting/diarrhea. No complaints of chest pain/shortness of breath/dyspnea on exertion. No close contacts with similar complaints. Prescriptions of amoxicillin and Augmentin have not given relief of symptoms. Non- smoker. No other associated symptoms and no other alleviating/aggravating factors. ROS Const Constitutional: No other (as above) Exam Const General: cooperative, healthy appearing and no acute distress Nutritional Appearance: average body habitus Orientation: alert, awake and oriented x3 HENMT Head: normal to inspection Ears: hearing grossly normal bilaterally, external ears normal, TM normal left/ TM grayish-green and bulging right, and EAC's normal Nose: external nose normal, nares normal, septum normal and no nasal discharge Face and sinus: normal facial exam, sinuses nontender, and face symmetric Mouth: oral mucosae normal, lip normal, tongue normal and oropharynx normal Throat: posterior oropharynx normal, tonsils normal, uvula midline and no postnasal drainage Eyes General: appearance normal, both eyes and all related structures Neck Neck: normal visual inspection, full ROM, no meningeal signs, supple and lymphadenopathy (Bilateral anterior cervical lymph node swelling/tender to palpation) Neck mass: No Thyroid: thyroid normal Chest Chest palpation inspection: normal inspection of the chest Resp Effort Inspection: normal respiratory effort and able to speak in complete sentences Cardio Rate: Bradycardia Pulses: radial pulses present GI Inspection: normal to inspection Skin General: no rashes or lesions noted Neuro General: patient alert, patient awake and patient oriented x3 Cognition: normal cognition Speech: speech normal Psych Appearance: grossly normal Mental Status: mental status grossly normal Mood: congruent mood Affect: normal affect Speech and Movement: speech and movement normal Attitude: cooperative Diagnoses Acute otitis media, right H66.91 Assessment and Plan Assessment and Plan (1) Acute otitis media, right: Status: Acute Plan: Levofloxacin as prescribed today. Supportive measures as instructed today. Follow-up with PCP in 3 to 5 days should symptoms not improve, sooner should symptoms worsen or any other con (more content not included)... Normal [facility] Cardiology Visit Reporton Cardiology Visit Report [facility] [address] [place] [address]. [address] [place] [address] OFFICE VISIT Date of Service: 06/27/24 MR#: [id number] Acct: [id number] Name: SHARLENE DICKSON JrZenia Rep #: [id number] : 1970 Provider: ANGELA allen Age/Sex: 53/M [place] [facility] [place]: Signed HPI HPI History of Present Illness Details: SHARLENE DICKSON, is a 53 M who presents to the office today for a follow-up visit. He is a gentleman with a history of hypertrophic cardiomyopathy with a hyperdynamic ventricle. He was referred to the hypertrophic cardiomyopathy clinic at the [facility]. He had an echocardiogram as well as an MRI. The report of this demonstrated mild asymmetrical septal hypertrophy. There was also mild systolic anterior motion of the mitral valve with mild regurgitation. During his visit in February he was noted to be in atrial fib, he underwent a DCCV in 03/2021. He did have an ablation on 02/20/2023. His last echocardiogram was in May of 2022 demonstrating an ejection fraction of 65% with a severely enlarged left atrium and a mid cavitary gradient of 36 mmHg with Valsalva from a resting of 8 mmHg. You do remember that his obstruction is mainly from his systolic anterior motion of the mitral valve. Echocardiogram in May 2023 demonstrates moderate concentric LVH with estimated ejection fraction of 60%. Resting LV gradient 8 mmHg. Valsalva gradient 33 mmHg He denies chest, arm, jaw, or neck discomfort. He denies palpitations. He denies bilateral lower extremity edema. He denies claudication. He denies shortness of breath with activity, shortness of breath at rest, orthopnea, or PND. He denies chronic cough. He denies significant, sudden weight gain. He denies lightheadedness, dizziness, near-syncope, or syncope. He denies blood in urine, blood in stool, or epistaxis. He denies fever with chills. He denies myalgia. He denies fatigue. His exercise level has remained stable. Intake Vital Signs 11/27/23 11:32 06/27/24 08:21 Height 6 ft 6 ft Weight: 360 lb BMI 48.8 BP 123/77 H Blood Pressure Location Lt brachial Position Sitting Respiration 16 Pulse 50 L Pulse Source NIBP Intake Visit Reasons: 6 M FU Vegetable Tier Required: No Is patient in pain?: No Allergies poison mark extract Adverse Reaction (Severe, Verified 06/27/24 08:29) NEEDS FOLLOW-UP Medications ???Medication ???Instructions ???Recorded ???Confirmed ???Type rivaroxaban 20 mg tablet (Xarelto) See Rx Instructions .Route 07/0306/27/24 Rx .COMPLEX #90 tabs metoprolol succinate 25 mg 25 mg PO DAILY #90 TABLETS 5 06/27/24 Rx tablet,extended release 24 hr multivit,calcium,min-foli c acid tab PO 06/27/24 06/27/24 History 240 mcg-D3 25 mcg-lycop 300 mcg tablet (One A Day Men Complete) Ejection fraction %: 65 Have you fallen in the past year?: No Nurse's Note: Tingling in right hand, especially at night. Questions metoprolol [facility] Medical History PAF (paroxysmal atrial fibrillation) Obstructive sleep apnea Obesity Essential (primary) hypertension Hypertrophic obstructive cardiomyopathy Surgical History History of cardiac ablation for atrial fibrillation (02/17/23) History of cardioversion (05/18/20) Family History Father No problems noted. Mother CVA (cerebral vascular accident) Other History of cardioversion Social History Smoking Status: Former smoker pack-years: 20 how long ago did patient quit smokin alcohol intake: current alcohol intake frequency: a few times a month Alcohol type: beer substance use type: does not use caffeine: Yes Type: coffee Number of servings: 5 ROS Const Const: Positive for fatigue; Negative for weakness Eyes Eyes: Negative for change in vision ENT ENT: Negative for dizziness or balance problems Cardio Chest Pain: No Frequency: monthly (1-2 times per month) Character: sharp (mild) Onset: at rest Location: left chest Duration: minutes Palpitations: Yes feels like its: pounding Edema: Bilateral (Occasional, mild) Muscle aches with walking: None Resp Respiratory: Positive for SOB with activity; Negative for SOB at rest or SOB orthopnea SOB lying down GI GI: Negative nausea or heartburn : Negative for hematuria or frequent nighttime urination/ nocturia Musc Musc: Negative for balance problems Skin Skin: Negative non-healing lesions or rash Neuro Neuro: Positive for lightheadedness (Standing up too quickly); Negative for dizziness, near syncope, syncope or weakness Endo Endo: Positive for fatigue Allergy Allergy/Immunology: Negative for rash (more content not included)... Normal [facility] CBC/DIFF (OUTSIDE )on 05-05 BASO ABS 0 K/uL 0 - 0.2 K/uL [facility] Basophils/100 WBC (Bld) 1 % [facility] EOS ABS 0.1 K/uL 0.1 - 0.3 K/uL [facility] Eosinophils/100 WBC (Bld) 3 % [facility] Hematocrit (Bld) [Volume fraction] 48.6 % 39 - 55 % [facility] Hemoglobin (Bld) [Mass/Vol] 16.4 g/dL 14 - 16.5 g/dL [facility] Immature Gran % 0 % [facility] Lymphocytes (Bld) [#/Vol] 2 10*3/uL 1.2 - 4 K/uL [facility] Lymphocytes/100 WBC (Bld) 2 % [facility] MCH (RBC) [Entitic mass] 29.7 pG 27 - 34 pG [facility] MCHC (RBC) [Mass/Vol] 33.7 g/dL 30 - 3 6 g/dL [facility] MCV (RBC) [Entitic vol] 88 fL 79 - 98 fL [facility] MONO ABS 0.4 K/uL 0 - 1 K/uL [facility] Monocytes/100 WBC (Bld) 9 % [facility] NEUT ABS 2.1 K/uL 1.9 - 8 K/uL [facility] Neutrophils/100 WBC (Bld) 45 % [facility] Platelets (Bld) [#/Vol] 213 10*3/uL 140 - 440 K/uL [facility] RBC (Bld) [#/Vol] 5.53 10*6/uL [facility] RDW 13.4 K/uL Abnormal 140 - 440 K/uL [facility] WBC (Bld) [#/Vol] 4.7 10*3/uL 3.9 - 11 K/uL [facility] CMP (EXTERNAL)on 05-27-2024 Albumin [Mass/Vol] 4.3 g/dL [facility] Alk Phos Total 75 U/L 45 - 117 U/L [facility] ALT [Catalytic activity/Vol] 24 U/L 12 - 78 U/L [facility] AST [Catalytic activity/Vol] 16 U/L 8 - 37 U/L [facility] Bili Total 0.5 mg/dL 0.2 - 1 mg/dL [facility] Calcium [Mass/Vol] 9 mg/dL 8.5 - 10. 1 mg/dL [facility] Chloride [Moles/Vol] 106 mmol/L [facility] CO2 [Moles/Vol] 20 mmol/L Abnormal [facility] Creatinine [Mass/Vol] 0.83 mg/dL [facility] GFR 105 mL/MIN [facility] Glucose [Mass/Vol] 117 mg/dL Abnormal [facility] Potassium [Moles/Vol] 4.3 mmol/L 3.5 - 5.1 mmol/L [facility] Protein [Mass/Vol] 6.9 g/dL [facility] Sodium [Moles/Vol] 140 mmol/L 136 - 145 mmol/L [facility] Urea nitrogen [Mass/Vol] 15 mg/dL [facility] Urea nitrogen/Creatinine [Mass ratio] 18 mg/mg 9 - 20 [facility] Echo Complete W/ Contraston 05-27-2024 Echo Complete W/ Contrast [facility] Cardiovascular Services [address] [place] [address] Echo Complete W/ Contrast 05/27/24 1355 MR#: [id number] Acct: [id number] Name: SHARLENE DICKSON Jr. Rep #: [id number] : 1970 53 From: Dinesh Mena MD Attending Dr: BOO Michael Status: REG CLI Ordering Dr: Lacy Mcgarry Date: 05/05 06/28 Location: CVS Sex: M C Admitted: Reason For Study Reason For Study: DYSPNEA/SOB Procedure This was a 2D Doppler, Color Flow transthoracic echocardiogram. The study was technically difficult. Due to body habitus. Contrast injection was performed. Exam performed in department. Left Ventricle Normal LV size. Mild concentric left ventricular hypertrophy. Sigmoid septum. The left ventricular ejection fraction is 65 %. No regional wall motion abnormalities noted. Right Ventricle Normal RV size. Normal systolic function. Atria Normal left atrium. Normal right atrium. Mitral Valve Normal mitral valve. Tricuspid Valve Normal tricuspid valve. Mild (1+) tricuspid valve insufficiency. Pulmonary artery systolic pressure is 33 mmHg. Aortic Valve The aortic valve is not well visualized. Pulmonic Valve The pulmonic valve is not well visualized. Great Vessels Normal aortic root. Pericardium/Pleural No pericardial effusion. Medication 22 gauge I.V. with prn adaptor inserted into right arm. Diluted definity 4.0ml given slow IV push to enhance endocardial definition. MMode/2D Measurements Calculations LVIDd: 5.6 cm IVSd: 1.4 cm Ao root diam: 3.7 cm LVIDs: 3.5 cm LVPWd: 1.4 cm RVDd: 4.0 cm FS: 38.8 % LAV(MOD-bp): 109.4 ml LVAd ap4: 24.3 cm2 SV(MOD-sp4): 38.8 ml LAV(MOD-bp) Indexed: 40.6 ml/m2 LVLd ap4: 7.5 cm SI(MOD-sp4): 14.4 ml/m2 LAV(MOD-sp2): 103.1 ml EDV(MOD-sp4): 64.9 ml LAV(MOD-sp4): 108.2 ml EDV(sp4-el): 66.3 ml LVAs ap4: 13.7 cm2 LVLs ap4: 5.9 cm ESV(MOD-sp4): 26.1 ml ESV(sp4-el): 27.1 ml EF(MOD-sp4): 59.8 % EF(sp4-el): 59.2 % SV(sp4-el): 39.2 ml LA A4 area: 30.5 cm2 LA dimension(2D): 5.9 cm RA A4 area: 26.1 cm2 TAPSE: 3.2 cm Time Measurements MV dec time: 0.24 sec Doppler Measurements Calculations MV E max derik: 72.7 cm/sec Lat Peak E' Derik: 11.0 cm/sec Med Peak E' Derik: 9.8 cm/sec MV A max derik: 47.1 cm/sec E/E' lat: 6.6 E/E' med: 7.4 MV E/A: 1.5 MV V2 max: 100.9 cm/sec MV P1/2t max derik: 99.7 cm/sec Ao V2 max: 132.7 cm/sec MV max P.1 mmHg MV P1/2t: 54.9 msec Ao max P.1 mmHg MV V2 mean: 35.0 cm/sec MV dec slope: 531.2 cm/sec2 Ao V2 mean: 96.8 cm/sec MV mean P.71 mmHg MVA(P1/2t): 4.0 cm2 Ao mean P.1 mmHg MV V2 VTI: 29.6 cm Ao V2 VTI: 32.6 cm AV (velocity ratio): 0.90 LV V1 max: 105.7 cm/sec PA V2 max: 100.3 cm/sec TR max derik: 270.8 cm/sec LV V1 max P.5 mmHg PA V2 mean: 70.2 cm/sec TR max P.3 mmHg LV V1 mean P.8 mmHg LV V1 mean: 79.7 cm/sec LV V1 VTI: 29.4 cm ECHO/Echo Complete W/ Contrast Interpretation Summary Normal LV size. The left ventricular ejection fraction is 65 %. Mild concentric left ventricular hypertrophy. Sigmoid septum. Contrast injection was performed. ___ Ordering Physician: Lacy Mcgarry Referring Physician: David Pineda Performed By: Sylwia Kapadia RDCS, RVT 05/27/24 1614 Date Dinesh Mena MD CC: Dr. David Pineda MD; BOO Michael Date Dictated: 05/27/241354 Date Transcribed: 05/27/241613 Project Specialist: Signed Normal [facility] Echocardiogram study reportO rdered By: Dinesh Mena on 05-27-2024 Study report [facility] Cardiovascular Services [address] [place] [id number] Echo Complete W/ Contrast 05/27/24 1355 MR#: [id number] Acct: [id number] Name: SHARLENE DICKSON JrZenia Rep #:[id number] : 1970 53 From: Dinesh [place] Attending Dr: BOO Michael Status: REG CLI Ordering Dr: Lacy Mcgarry Date: 05/27/24 Location: [facility] Sex: M C Admitted: Reason For Study Reason For Study: DYSPNEA/SOB Procedure This was a 2D Doppler, Color Flow transthoracic echocardiogram. The study was technically difficult. Due to body habitus. Contrast injection was performed. Exam performed in department. Left Ventricle Normal LV size. Mild concentric left ventricular hypertrophy. Sigmoid septum. The left ventricular ejection fraction is 65 %. No regional wall motion abnormalities noted. Right Ventricle Normal RV size. Normal systolic function. Atria Normal left atrium. Normal right atrium. Mitral Valve Normal mitral valve. Tricuspid Valve Normal tricuspid valve. Mild (1+) tricuspid valve insufficiency. Pulmonary artery systolic pressure is 33 mmHg. Aortic Valve The aortic valve is not well visualized. Pulmonic Valve The pulmonic valve is not well visualized. Great Vessels Normal aortic root. Pericardium/Pleural No pericardial effusion. Medication 22 gauge I.V. with prn adaptor inserted into right arm. Diluted definity 4.0ml given slow IV push to enhance endocardial definition. MMode/2D Measurements & Calculations LVIDd: 5.6 cm IVSd: 1.4 cm Ao root diam: 3.7 cm LVIDs: 3.5 cm LVPWd: 1.4 cm RVDd: 4.0 cm FS: 38.8 % LAV(MOD-bp): 109.4 ml LVAd ap4: 24.3 cm2 SV(MOD-sp4): 38.8 ml LAV(MOD-bp) Indexed: 40.6 ml/m2 LVLd ap4: 7.5 cm SI(MOD-sp4): 14.4 ml/m2 LAV(MOD-sp2): 103.1 ml EDV(MOD-sp4): 64.9 ml LAV(MOD-sp4): 108.2 ml EDV(sp4-el): 66.3 ml LVAs ap4: 13.7 cm2 LVLs ap4: 5.9 cm ESV(MOD-sp4): 26.1 ml ESV(sp4-el): 27.1 ml EF(MOD-sp4): 59.8 % EF(sp4-el): 59.2 % SV(sp4-el): 39.2 ml LA A4 area: 30.5 cm2 LA dimension(2D): 5.9 cm RA A4 area: 26.1 cm2 TAPSE: 3.2 cm Time Measurements MV dec time: 0.24 sec Doppler Measurements & Calculations MV E max derik: 72.7 cm/sec Lat Peak E' Derik: 11.0 cm/sec Med Peak E' Derik: 9.8 cm/sec MV A max derik: 47.1 cm/sec E/E' lat: 6.6 E/E' med: 7.4 MV E/A: 1.5 MV V2 max: 100.9 cm/sec MV P1/2t max derik: 99.7 cm/sec Ao V2 max: 132.7 cm/sec MV max P.1 mmHg MV P1/2t: 54.9 msec Ao max P.1 mmHg MV V2 mean: 35.0 cm/sec MV dec slope: 531.2 cm/sec2 Ao V2 mean: 96.8 cm/sec MV mean P.71 mmHg MVA(P1/2t): 4.0 cm2 Ao mean P.1 mmHg MV V2 VTI: 29.6 cm Ao V2 VTI: 32.6 cm AV (velocity ratio): 0.90 LV V1 max: 105.7 cm/sec PA V2 max: 100.3 cm/sec TR max derik: 270.8 cm/sec LV V1 max P.5 mmHg PA V2 mean: 70.2 cm/sec TR max P.3 mmHg LV V1 mean P.8 mmHg LV V1 mean: 79.7 cm/sec LV V1 VTI: 29.4 cm ECHO/Echo Complete W/ Contrast Interpretation Summary Normal LV size. The left ventricular ejection fraction is 65 %. Mild concentric left ventricular hypertrophy. Sigmoid septum. Contrast injection was performed. ___ Ordering Physician: Lacy Mcgarry Referring Physician: David Pineda Performed By: Sylwia Kapadia, KAN, RVT 05/27/24 1614 Date _ Dinesh Mena MD CC: Dr. David Pineda MD; BOO Michael ~ Date Dictated: 05/27/24 1355 Date Transcribed: 05/27/24 1614 Project Specialist: Signed [facility] Work Phone: HbA1c (Bld)on 05-27-2024 HbA1c (Bld) [Mass fraction] 6.2 % Abnormal 4 - 6 % [facility] Lipid 1996 panelon Cholesterol in HDL [Mass/Vol] 44 mg/dL [facility] LDL CHOL CALC (NIH) 82 [facility] Total Chol/HDL Ratio - Intl 3.3 [facility] Total Cholesterol (NMRLIP) 145 [facility] Triglyceride [Mass/Vol] 104 mg/dL [facility] VLDL 19 [facility] No Panel Informationon 05-27 Interpretation and review of laboratory results Abnormal [facility] CNCOon 04-22-2024 CNCO Letter Text Normal [facility] CNOVon 04-22-2024 CNOV Office Visit (FAMMAS ) ----- SHARLENE DICKSON ([id number]) 1970 M Date Time Provider Department 04/22/24 10:00 AM [facility] visit today, we recorded the following information about you: Temperature Pulse Respiration Blood pressure 97.3 degrees 47/minute 16/minute 143/85 Weight Height 162.8 kg 1.829 m Keya Grady LPN 04/22/2024 10:48 AM Signed Sharlene is here today for his annual wellness exam Depression Screening Negative Anxiety Screening Negative Hepatitis C Screening Never done HIV Screening Never done BP Controlled (<130/80) Never done DTaP,Tdap,Td Vaccine(1 - Tdap) Never done Hepatitis B Vaccine(1 of 3 - 19+ 3-dose series) Never done Lipid Screening Never done Pneumococcal Vaccine: 50+(1 of 1 - PCV) Never done Covid-19 Vaccine( season) due on 11/05/2023 Patient declines all of the above vaccines Patient has been having problems with his right hand A certain way he bends his hand causes pain down the center of it and some of his fingers go numb He was 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 Kameron presents today for his annual wellness visit. Additionally follows up for hypertension and hypertrophic cardiomyopathy. Both are well-controlled on current medication. Review of Systems Constitutional: Negative. HENT: Negative. Eyes: Negative. Respiratory: Negative. Cardiovascular: Negative. Gastrointestinal: Negative. Endocrine: Negative. Genitourinary: Negative. Musculoskeletal: Negative. Skin: Negative. Allergic/Immunologic: Negative. Neurological: Negative. Hematological: Negative. Psychiatric/Behavioral: Negative. PAST SURGICAL HISTORY Procedure Laterality Date CARDIOVERSION 05/2020 TONSILLECTOMY HX PAST MEDICAL HISTORY Diagnosis Date Aortic sclerosis Atrial fibrillation (HCC) Cardiomyopathy (HCC) History of cardioversion HOCM (hypertrophic obstructive cardiomyopathy) (HCC) ~2012 Dx ~2012 w/u murmur. HTN (hypertension) ~2012 MR (mitral regurgitation) ~2012 Obstructive sleep apnea Sleep apnea Uses Cpap. Syncope ~2011 x1 in 2011 dehydrated, had a cold. Systolic anterior movement of mitral valve ~2012 Dx 2013. FAMILY HISTORY Problem Relation Age of Onset Stroke Mother Living age 60s. Does not know her well. H/o stroke at age 40s. other (Healthy) Father Living age 60s. Healthy. other (Healthy) Brother Living age 40s. Healthy. other (Healthy) Child 1 child, daughter. Living AND healthy age 23. other (Healthy) Grandchild 1 grandchild, grandson. Living AND healthy age 2 months. Social History Tobacco Use Smoking status: Former Current packs/day: 0.00 Average packs/day: 0.5 packs/day for 20.0 years (10.0 ttl pk-yrs) Types: Cigarettes Start date: 06/14/1992 Quit date: 06/14/2012 Years since quittin.8 Passive exposure: Past Smokeless tobacco: Former Types: Chew Quit date: 01/30/2014 Vaping Use Vaping status: Never Used Substance Use Topics Alcohol use: Not Currently Alcohol/week: 7.0 standard drinks of alcohol Types: 4 Shots of liquor, 3 Standard drinks or equivalent per week Drug use: No ALLERGIES No Known Allergies MEDICATIONS: CPAP/BIPAP/OTHER .CPAPSettings : auto settings 5-20. metoprolol succinate ER (TOPROL XL) 50 mg 24 hr tablet Take 50 mg by mouth once daily. rivaroxaban (XARELTO) 20 mg tablet Take 1 tablet by mouth every evening. With meal multivitamin tablet Take 1 tablet by mouth once daily. Allergies, past surgical history, family history and past medical history were reviewed per this encounter. Medications were reviewed and verified. 10/14/2023 04/15/2024 INTAKE PAIN ASSESSMENT Are you having pain associated with your visit today? No No If pain assessment is 0, no action needed. If pain assessment is positive, please see assessment and plain. Objective BP (P) 110/82 (BP Site: Left Arm, BP Position: Sitting, BP Cuff Size: Large Adult) Pulse (!) 47 Temp 36.3 ?C (97.3 ?F) (Temporal) Resp 16 Ht 182.9 cm (6') Wt (!) 162.8 kg (358 lb 12.8 oz) SpO2 94% BMI 48.66 kg/m? Physical Exam Vitals reviewed. Constitutional: Appearance: Normal appearance. HENT: Head: Normocephalic and atraumatic. Nose: Nose normal. Eyes: Extraocular Movements: Extraocular movements intact. Pupils: Pupils are equal, round, and reactive to light. Cardiovascular: Rate and Rhythm: Normal rate and regular rhythm. Pulmonary: Effort: Pulmonary effort is normal. Breath sounds: Normal breath sounds. Abdominal: General: Bowel sounds are normal. Palpations: Abdomen is soft. Musculoskeletal: General: Normal range of motion. Cervical back: Normal range of motion and neck suppl (more content not included)... Normal [facility] Cardiology Visit Reporton Cardiology Visit Report [facility] [address] [place] [address] OFFICE VISIT Date of Service: 11/27/23 MR#: [id number] Acct: [id number] Name: CORYSHARLENEDEXTER SOTOMAYOR Jr. Rep #: [id number] : 1970 Provider: BOO Knott Age/Sex: 53/M Location: [facility] Status: Signed HPI [facility] History of Present Illness Details: SHARLENE DICKSON, is a 53 M who presents to the office today for a follow-up visit. He is a gentleman with a history of hypertrophic cardiomyopathy with a hyperdynamic ventricle. He was referred to the hypertrophic cardiomyopathy clinic at the [facility]. He had an echocardiogram as well as an MRI. The report of this demonstrated mild asymmetrical septal hypertrophy. There was also mild systolic anterior motion of the mitral valve with mild regurgitation. During his visit in February he was noted to be in atrial fib, he underwent a DCCV in 03/2021. He did have an ablation on 02/20/2023. His last echocardiogram was in May of 2022 demonstrating an ejection fraction of 65% with a severely enlarged left atrium and a mid cavitary gradient of 36 mmHg with Valsalva from a resting of 8 mmHg. You do remember that his obstruction is mainly from his systolic anterior motion of the mitral valve. Echocardiogram in May 2023 demonstrates moderate concentric LVH with estimated ejection fraction of 60%. Resting LV gradient 8 mmHg. Valsalva gradient 33 mmHg He has not had any palpitations since then. He feels his breathing is okay. He feels his breathing is similar this past year. Intake Vital Signs 03/13/23 09:37 11/27/23 11:30 11/27/23 11:32 Height 6 ft 6 ft 6 ft Weight: 340 lb 347 lb BMI 46.0 47.0 BP 106/63 118/76 Blood Pressure Location Lt brachial Lt brachial Position Sitting Sitting Respiration 18 18 Pulse 48 L 51 L Pulse Source Monitor Monitor Pulse Oximetry (%) 96 Intake Visit Reasons: 9 M FU Vegetable Tier Required: No Is patient in pain?: No Allergies poison mark extract Adverse Reaction (Severe, Verified 03/13/23 09:37) NEEDS FOLLOW-UP Medications ???Medication ???Instructions ???Recorded ???Confirmed ???Type metoprolol succinate 50 mg See Rx Instructions .Route 02/28/23 11/27/23 Rx tablet,extended release 24 hr .COMPLEX #90 tabs rivaroxaban 20 mg tablet (Xarelto) See Rx Instructions .Route 07/04/23 11/27/23 Rx .COMPLEX #90 tabs PFSH Medical History Essential (primary) hypertension Hypertrophic obstructive cardiomyopathy Obesity Obstructive sleep apnea PAF (paroxysmal atrial fibrillation) Surgical History History of cardioversion (05/18/20) Family History Father No problems noted. Mother CVA (cerebral vascular accident) Other History of cardioversion Social History Smoking Status: Former smoker pack-years: 20 how long ago did patient quit smokin alcohol intake: current alcohol intake frequency: a few times a month Alcohol type: beer substance use type: does not use caffeine: Yes Type: coffee Number of servings: 5 ROS Const Const: Positive for fatigue (uses CPAP), weakness and daytime sleepiness; Negative for headache(s) or frequent falls Eyes Eyes: Negative for loss of peripheral vision, change in vision or double vision ENT ENT: Positive for dizziness (positional changes- most of the time); Negative for headache(s), Nosebleed/epistaxis or balance problems Cardio Chest Pain: Yes (occasional, he is not concerned) Palpitations: Yes (sometimes with exertion) Edema: None Muscle aches with walking: None Resp Respiratory: Positive for SOB with activity (walking, not as bad as when he is in Afib); Negative for SOB at rest or SOB orthopnea SOB lying down GI GI: Negative nausea, vomiting, heartburn or bright, red blood in stools Musc Musc: Negative for muscle aches/ myalgia, muscle weakness or balance problems Neuro Neuro: Positive for dizziness (positional changes- most of the time) and weakness; Negative for frequent falls, headache(s) or double vision Endo Endo: Positive for fatigue (uses CPAP) Cardiology Exam Const Appearance: cooperative, comfortable, no acute distress and well developed Orientation: alert, awake and oriented x3 Head Head: normal to inspection Ears: hearing grossly normal bilaterally Nose: external nose normal Face and Sinus: face symmetric Mouth: oral mucosae normal, lip normal and moist mucous membranes Eyes General: appearance normal, both eyes and all related structures Eyelids: eyelids normal Conjunctivae: conjunctivae normal Pupils: PERRL (more content not included)... Normal [facility] CMP (EXTERNAL)on 05-23-2023 Albumin [Mass/Vol] 4.5 g/dL 3.2 - 4.6 gm/dL [facility] Alk Phos Total 71 U/L 45 - 117 U/L [facility] ALT [Catalytic activity/Vol] 31 U/L 12 - 78 U/L [facility] AST [Catalytic activity/Vol] 21 U/L 8 - 37 U/L [facility] Bili Total 0.7 mg/dL 0.2 - 1 mg/dL [facility] Calcium [Mass/Vol] 9.3 mg/dL 8.5 - 10. 1 mg/dL [facility] Chloride [Moles/Vol] 108 mmol/L Abnormal 98 - 10 7 MEQ/L [facility] CO2 [Moles/Vol] 18 mmol/L Abnormal 21 - 32 MEQ/L [facility] Creatinine [Mass/Vol] 0.90 mg/dL 0.6 - 1.3 MG/DL [facility] GFR AFR AMER [facility] GFR/1.73 sq M.predicted among non-blacks MDRD (S/P/Bld) [Vol rate/Area] 103 mL/min/{1.73_m2} [facility] GLOBULIN 2.7 [facility] Glucose [Mass/Vol] 128 mg/dL Abnormal 74 - 106 MG/DL [facility] Potassium [Moles/Vol] 4.4 mmol/L 3.5 - 5.1 mmol/L [facility] Protein [Mass/Vol] 7.2 g/dL 6.4 - 8.2 gm/dL [facility] PSA,TOTAL 0.6 [facility] Sodium [Moles/Vol] 140 mmol/L 136 - 145 mmol/L [facility] Urea nitrogen [Mass/Vol] 16 mg/dL 7 - 18 MG/DL [facility] Urea nitrogen/Creatinine [Mass ratio] 18 mg/mg 9 - 20 [facility] No Panel InformationOrdered By: David Pineda on 09-24-2022 Prostate Specific Antigen Screen 0.62 ng/mL 0.00-4.00 [facility] Comment on above: This test was perfor med using the TPSA assay method for the[employer] chemistry system. Values obtained with differentassay methods cannot be used interchangably.When changing PSA assays in the course of monitoring apatient, additional sequential testing should be carriedout to confirm baseline values. Absolute lymphocyte countOrd ered By: Lacy Mcgarry on 05-30-2022 Lymphocytes Auto (Unsp spec) [#/Vol] 2.19 10*3/uL 0.83-4.51 [facility] Basophil percentageOrdered B y: Lacy Mcgrary on 05-30-2022 Basophils/100 WBC (Bld) 0.9 % 0-1 [facility] Bilirubin [Mass/Vol] 0.60 mg/dL 0.20-1.00 [facility] Comment on above: For patients on eltr ombopag therapy, use of Dimension [place] TBIL is not recommended. Chloride [Moles/Vol] 109 mmol/L 98-107 [facility] Cholesterol [Mass/Vol] 143 mg/dL <200 [facility] Comment on above: <200 mg/dL Desirable 200-240 mg/dL Borderline >240 mg/dL High Risk Eosinophils/100 WBC (Bld) 2.7 % 0-5 [facility] Glucose [Mass/Vol] 130 mg/dL 74-106 [facility] Comment on above: Fasting Glucose resu lt greater than or equal to 126 mg/dL suggests DIABETES MELLITUS per A.D.A. criteria. Neutrophils (Bld) [#/Vol] 2.6 10*3/uL 2.0-7.7 [facility] Neutrophils/100 WBC (Bld) 47.1 % 47-70 [facility] Potassium [Moles/Vol] 4.1 mmol/L 3.5-5.1 [facility] Protein [Mass/Vol] 7.8 g/dL 6.4-8.2 [facility] Sodium [Moles/Vol] 138 mmol/L 136-145 [facility] Triglyceride [Mass/Vol] 103 mg/dL <199 [facility] Comment on above: The drugs N-Acetylcy steine and Metamizole may falsely depress this assay.Serum Triglycerides Reference Interval Normal <150 mg/dL Borderline high 150 - 199 mg/dL High 200 - 499 mg/dL Very High > or = 500 mg/dL WBC (Bld) [#/Vol] 5.5 10*3/uL 4.4-11.0 [facility] Blood erythrocytes count (nu mber/volume)Ordered By: Lacy Mcgarry on 05-30-2022 RBC (Bld) [#/Vol] 5.19 10*6/uL 4.6-6.2 [facility] Blood hemoglobin measurement (mass/volume)Ordered By: Lacy Mcgarry on 05-30-2022 Hemoglobin (Bld) [Mass/Vol] 15.1 g/dL 13.0-16.5 [facility] Blood lymphocytes/100 leukoc ytesOrdered By: Lacy Mcgarry on 05-30-2022 Lymphocytes/100 WBC (Bld) 39.7 % 19-41 [facility] Blood monocytes/100 leukocyt esOrdered By: Lacy Mcgarry on 05-30-2022 Monocytes/100 WBC (Bld) 8.9 % 0-10 [facility] Blood platelet mean volumeOr dered By: Lacy Mcgarry on 05-30-2022 Platelet mean volume (Bld) [Entitic vol] 9.9 fL 6.2-12.0 [facility] Determination of erythrocyte mean corpuscular volume (MCV)Ordered By: Lacy Mcgarry on 05-30-2022 MCV (RBC) [Entitic vol] 88.8 fL 80-94 [facility] Hematocrit Auto (Bld) [Volum e fraction]Ordered By: Lacy Mcgarry on 05-30-2022 Hematocrit (Bld) [Volume fraction] 46.1 % 40-54 [facility] Laboratory - Chemistry and C hemistry - challengeOrdered By: Lacy Mcgarry on 05-30-2022 ALP [Catalytic activity/Vol] 64 U/L 45-117 [facility] ALT [Catalytic activity/Vol] 47 U/L 16-61 [facility] CO2 [Moles/Vol] 25.0 mmol/L 21.0-32.0 [facility] Globulin (S) [Mass/Vol] 4.1 g/dL 2.2-4.2 [facility] Urea nitrogen/Creatinine [Mass ratio] 23.7 mg/mg 10-20 [facility] Laboratory - Hematology and Cell countsOrdered By: Lacy Mcgarry on 05-30-2022 Erythrocyte distribution width (RBC) [Entitic vol] 44.1 fL 35.1-43.9 [facility] Erythrocyte distribution width (RBC) [Ratio] 13.6 % 11.6-14.6 [facility] Immature granulocytes/100 WBC (Bld) 0.700 % 0.0-0.9 [facility] Comment on above: IG% - Immature Granu locytes (promyelocytes, myelocytes and metamyelocytes) > 1% indicates that a LEFT SHIFT is Present. MCH (RBC) [Entitic mass] 29.1 pg 27.0-32.0 [facility] Nucleated RBC/100 WBC (Bld) [Ratio] 0 % 0-5 [facility] MCHC Auto (RBC) [Mass/Vol]Or dered By: Lacy Mcgarry on 05-30-2022 MCHC (RBC) [Mass/Vol] 32.8 g/dL 32-36 [facility] No Panel InformationOrdered By: Lacy Mcgarry on 05-30-2022 Estimated GFR (MDRD) Amer 123 mL/min >60 [facility] Comment on above: GFR Calc Estimated GFR (MDRD) Non-Af Amer 102 mL/min >60 [facility] Comment on above: Non- GFR Calc Platelets bldOrdered By: Mk Mcgarry on 05-30-2022 Platelets (Bld) [#/Vol] 221 10*3/uL 150-450 [facility] Serum or plasma albumin jessenia urement (mass/volume)Ordered By: Lacy Mcgarry on 05-30-2022 Albumin [Mass/Vol] 3.7 g/dL 3.2-5.0 [facility] Serum or plasma albumin/glob ulin mass ratioOrdered By: Lacy Mcgarry on 05-30-2022 Albumin/Globulin [Mass ratio] 0.9 {ratio} 0.9-2.4 [facility] Serum or plasma calcium jessenia urement (mass/volume)Ordered By: Lacy Mcgarry on 05-30-2022 Calcium [Mass/Vol] 8.6 mg/dL 8.5-10.1 [facility] Serum or plasma cholesterol in HDL measurement (mass/volume)Ordered By: Lacy Mcgarry on 03-27-2023 Cholesterol in HDL [Mass/Vol] 49 mg/dL >40 [facility] Comment on above: The drugs N-Acetylcy steine and Metamizole may falsely depress this assay. Reference Range HDL <40 mg/dL Low HDL Cholesterol HDL >or= 60 mg/dL High HDL Cholesterol Serum or plasma cholesterol in VLDL measurement (mass/volume)Ordered By: Lacy Mcgarry on 05-30-2022 Cholesterol in VLDL [Mass/Vol] 21 mg/dL 5-40 [facility] Serum or plasma creatinine m easurement (mass/volume)Ordered By: Lacy Mcgarry on 05-30-2022 Creatinine [Mass/Vol] 0.84 mg/dL 0.70-1.30 [facility] Comment on above: The validity of the calculated GFR & GFRAA in patients over 70 years has not been determined. Clinical correlation is essential. Serum or plasma low density lipoprotein (LDL) cholesterol measurement (mass/volume)Ordered By: Lacy Mcgarry on 05-30-2022 Cholesterol in LDL [Mass/Vol] 73 mg/dL 0-130 [facility] Serum or plasma urea nitroge n measurement (mass/volume)Ordered By: Lacy Mcgarry on 05-30-2022 Urea nitrogen [Mass/Vol] 20 mg/dL 7-18 [facility] Thin prep Papanicolaou smear with manual screeningOrdered By: Lacy Mcgarry on 05-30-2022 Thin prep Papanicolaou smear with manual screening 25 U/L 15-37 [facility] Thin prep Papanicolaou smear with manual screening 4 5-15 [facility] Absolute lymphocyte counton 09-11-2021 Lymphocytes Auto (Unsp spec) [#/Vol] 1.96 10*3/uL 0.83-4.51 [facility] Work Phone: Basophil percentageon 2021 Basophils/100 WBC (Bld) 0.6 % 0-1 [facility] Work Phone: Bilirubin [Mass/Vol] 0.90 mg/dL 0.20-1.00 [facility] Work Phone: Comment on above: For patients on eltr ombopag therapy, use of Dimension [place] TBIL is not recommended. Chloride [Moles/Vol] 108 mmol/L 98-107 [facility] Work Phone: Cholesterol [Mass/Vol] 134 mg/dL <200 [facility] Work Phone: Comment on above: <200 mg/dL Desirable 200-240 mg/dL Borderline >240 mg/dL High Risk Eosinophils/100 WBC (Bld) 3.3 % 0-5 [facility] Work Phone: Glucose [Mass/Vol] 117 mg/dL 74-106 [facility] Work Phone: [phone] Comment on above: Fasting Glucose resu lt from 100 to 125 mg/dL suggests IMPAIRED HOMEOSTASIS per A.D.A. criteria. Neutrophils (Bld) [#/Vol] 2.2 10*3/uL 2.0-7.7 [facility] Work Phone: Neutrophils/100 WBC (Bld) 46.1 % 47-70 [facility] Work Phone: Potassium [Moles/Vol] 4.1 mmol/L 3.5-5.1 [facility] Work Phone: Protein [Mass/Vol] 7.4 g/dL 6.4-8.2 [facility] Work Phone: Sodium [Moles/Vol] 139 mmol/L 136-145 [facility] Work Phone: Triglyceride [Mass/Vol] 109 mg/dL <199 [facility] Work Phone: Comment on above: The drugs N-Acetylcy steine and Metamizole may falsely depress this assay.Serum Triglycerides Reference Interval Normal <150 mg/dL Borderline high 150 - 199 mg/dL High 200 - 499 mg/dL Very High > or = 500 mg/dL WBC (Bld) [#/Vol] 4.8 10*3/uL 4.4-11.0 [facility] Work Phone: Blood erythrocytes count (nu mber/volume)on 09-11-2021 RBC (Bld) [#/Vol] 5.02 10*6/uL 4.6-6.2 [facility] Work Phone: Blood hemoglobin measurement (mass/volume)on 09-11-2021 Hemoglobin (Bld) [Mass/Vol] 14.8 g/dL 13.0-16.5 [facility] Work Phone: Blood lymphocytes/100 leukoc yteson 09-11-2021 Lymphocytes/100 WBC (Bld) 40.5 % 19-41 [facility] Work Phone: Blood monocytes/100 leukocyt eson 09-11-2021 Monocytes/100 WBC (Bld) 9.1 % 0-10 [facility] Work Phone: Blood platelet mean volumeon 09-11-2021 Platelet mean volume (Bld) [Entitic vol] 10.0 fL 6.2-12.0 [facility] Work Phone: Determination of erythrocyte mean corpuscular volume (MCV)on 09-11-2021 MCV (RBC) [Entitic vol] 88.4 fL 80-94 [facility] Work Phone: Hematocrit Auto (Bld) [Volum e fraction]on 09-11-2021 Hematocrit (Bld) [Volume fraction] 44.4 % 40-54 [facility] Work Phone: Laboratory - Chemistry and C hemistry - challengeon 09-11-2021 ALP [Catalytic activity/Vol] 59 U/L 45-117 [facility] Work Phone: ALT [Catalytic activity/Vol] 41 U/L 16-61 [facility] Work Phone: CO2 [Moles/Vol] 27.0 mmol/L 21.0-32.0 [facility] Work Phone: Globulin (S) [Mass/Vol] 3.7 g/dL 2.2-4.2 [facility] Work Phone: Urea nitrogen/Creatinine [Mass ratio] 27.7 mg/mg 10-20 [facility] Work Phone: Laboratory - Hematology and Cell countson 09-11-2021 Erythrocyte distribution width (RBC) [Entitic vol] 43.1 fL 35.1-43.9 [facility] Work Phone: Erythrocyte distribution width (RBC) [Ratio] 13.2 % 11.6-14.6 [facility] Work Phone: Immature granulocytes/100 WBC (Bld) 0.400 % 0.0-0.9 [facility] Work Phone: Comment on above: IG% - Immature Granu locytes (promyelocytes, myelocytes and metamyelocytes) > 1% indicates that a LEFT SHIFT is Present. MCH (RBC) [Entitic mass] 29.5 pg 27.0-32.0 [facility] Work Phone: Nucleated RBC/100 WBC (Bld) [Ratio] 0 % 0-5 [facility] Work Phone: MCHC Auto (RBC) [Mass/Vol]on 09-11-2021 MCHC (RBC) [Mass/Vol] 33.3 g/dL 32-36 [facility] Work Phone: No Panel Informationon 09-11 Estimated GFR (MDRD) Amer 139 mL/min >60 [facility] Work Phone: Comment on above: GFR Calc Estimated GFR (MDRD) Non-Af Amer 115 mL/min >60 [facility] Work Phone: Comment on above: Non- GFR Calc Prostate Specific Antigen Screen 0.80 ng/mL 0.00-4.00 [facility] Work Phone: Comment on above: This test was perfor med using the TPSA assay method for the[employer] chemistry system. Values obtained with differentassay methods cannot be used interchangably.When changing PSA assays in the course of monitoring apatient, additional sequential testing should be carriedout to confirm baseline values. Platelets bldon 09-11-2021 Platelets (Bld) [#/Vol] 198 10*3/uL 150-450 [facility] Work Phone: Serum or plasma albumin jessenia urement (mass/volume)on 09-11-2021 Albumin [Mass/Vol] 3.7 g/dL 3.2-5.0 [facility] Work Phone: Serum or plasma albumin/glob ulin mass ratioon 09-11-2021 Albumin/Globulin [Mass ratio] 1.0 {ratio} 0.9-2.4 [facility] Work Phone: Serum or plasma calcium jessenia urement (mass/volume)on 09-11-2021 Calcium [Mass/Vol] 8.8 mg/dL 8.5-10.1 [facility] Work Phone: Serum or plasma cholesterol in HDL measurement (mass/volume)on 09-11-2021 Cholesterol in HDL [Mass/Vol] 48 mg/dL >40 [facility] Work Phone: Comment on above: The drugs N-Acetylcy steine and Metamizole may falsely depress this assay. Reference Range HDL <40 mg/dL Low HDL Cholesterol HDL >or= 60 mg/dL High HDL Cholesterol Serum or plasma cholesterol in VLDL measurement (mass/volume)on 09-11-2021 Cholesterol in VLDL [Mass/Vol] 22 mg/dL 5-40 [facility] Work Phone: Serum or plasma creatinine m easurement (mass/volume)on 09-11-2021 Creatinine [Mass/Vol] 0.76 mg/dL 0.70-1.30 [facility] Work Phone: Comment on above: The validity of the calculated GFR & GFRAA in patients over 70 years has not been determined. Clinical correlation is essential. Serum or plasma low density lipoprotein (LDL) cholesterol measurement (mass/volume)on 09-11-2021 Cholesterol in LDL [Mass/Vol] 64 mg/dL 0-130 [facility] Work Phone: Serum or plasma urea nitroge n measurement (mass/volume)on 09-11-2021 Urea nitrogen [Mass/Vol] 21 mg/dL 7-18 [facility] Work Phone: Thin prep Papanicolaou smear with manual screeningon 09-11-2021 Thin prep Papanicolaou smear with manual screening 19 U/L 15-37 [facility] Work Phone: Thin prep Papanicolaou smear with manual screening 4 5-15 [facility] Work Phone: CNOVon 09-04-2017 CNOV Office Visit (UCWSTR) SHARLENE DICKSON ([id number]) 1970 M UPADate Time Provider Department09/04/17 5:00 PM ORLANDO SUGGS (SILVER) [facility] During your visit today, we recorded the following information about you: Temperature Pulse Respiration Blood pressure 97.8 degrees 50/minute 16/minute 116/68 Weight 135.6 kgOrlando Suggs APRN.CNP 09/04/2017 6:20 PM SignedSubjectiveHPIHPI Sharlenedexter Dickson is a 46 year old male who presents today for CC of cough,sinus congestion and cough. This started 10 days ago. Has tried otcmedication. Symptoms are worsened by nothing. Risk factors none know.Intermittent cigarette smoker..Patient presents with:Cough: x 10 dayChest Congestion: x 10 daysPAST MEDICAL HISTORYDiagnosis Date- Aortic sclerosis- HOCM (hypertrophic obstructive cardiomyopathy) (HCC) ~2012 Dx ~2012 w/u murmur.- HTN (hypertension) ~2012- MR (mitral regurgitation) ~2012- Sleep apnea Uses Cpap.- Syncope ~2011 x1 in 2011 dehydrated, had a cold.- Systolic anterior movement of mitral valve ~2012 Dx 2013.PAST SURGICAL HISTORYProcedure Laterality Date- TONSILLECTOMY HXALLERGIES Patient has no known allergies.MEDICATIONSmeto prolol succinate ER (TOPROL XL) 50 mg 24 hr tablet Take 50 mg by mouth oncedaily.multivitamin tablet Take 1 tablet by mouth once daily.FAMILY HISTORYProblem Relation Age of Onset- Stroke Mother Living age 60s. Does not know her well. H/o stroke at age 40s.- Healthy [Other] [OTHER] Father Living age 60s. Healthy.- Healthy [Other] [OTHER] Brother Living age 40s. Healthy.- Healthy [Other] [OTHER] Child 1 child, daughter. Living AND healthy age 23.- Healthy [Other] [OTHER] Grandchild 1 grandchild, grandson. Living AND healthy age 2 months.Social HistorySubstance Use Topics- Smoking status: Former Smoker Packs/day: 0.50 Years: 20.00 Types: Cigarettes Quit date: 06/14/2012- Smokeless tobacco: Former User Types: Chew Quit date: 01/30/2014- Alcohol use 4.0 oz/week 4 Shots of liquor per weekReview of SystemsConstitutional: Negative for chills, fever and weight loss.HENT: Positive for congestion. Negative for ear pain, nosebleeds and sorethroat.Respiratory: Positive for cough. Negative for shortness of breath and wheezing.Cardiovascular: Negative for chest pain.Musculoskeletal: Negative for neck pain.ObjectiveBlood pressure 116/68, pulse (!) 50, temperature 36.6 ?C (97.8 ?F), resp. rate16, weight 135.6 kg (299 lb), SpO2 95 %.Physical ExamConstitutional: He is oriented to person, place, and time and well-developed,well-harriet shed, and in no distress. Non-toxic appearance. He does not have asickly appearance. No distress.HENT:Head: Normocephalic and atraumatic.Right Ear: Hearing, tympanic membrane, external ear and ear canal normal.Left Ear: Hearing, tympanic membrane, external ear and ear canal normal.Nose: Nose normal.Mouth/Throat: Uvula is midline, oropharynx is clear and moist and mucousmembranes are normal.Eyes: Conjunctivae and lids are normal. Pupils are equal, round, and reactiveto light. Right eye exhibits no discharge. Left eye exhibits no discharge. Noscleral icterus.Neck: Trachea normal and normal range of motion. Neck supple.Cardiovascular: Normal rate, regular rhythm and normal heart sounds.Pulmonary/Chest: Effort normal and breath sounds normal.Loose cough during examLymphadenopathy: He has no cervical adenopathy.Neurological: He is alert and oriented to person, place, and time.Skin: No rash noted. He is not diaphoretic. ASSESSMENT/PLAN:1. Sinobronchitis - ICD9: 473.9, 490, ICD10: J32.9, J40- Will begin treatment with Doxycline- Supportive care with plenty of fluids, rest, and analgesia prn.- Follow up in 3-5 days if symptoms persist or worsen.-If you experience chest pain/shortness of breath go to ERPrescription instructions reviewed with patient as applicable. Patient advisedif symptoms do not improve or if symptoms worsen sooner, to contact the officefor further evaluation by their primary care physician. Potential red flagsymptoms discussed with the patient. Reviewed appropriate action plan to takeif red flag symptoms occur. Patient agreeable to treatment plan.Orlando Suggs APRN.Stephy Suggs APRN.CNP 09/04/2017 5:28 PM SignedASSESSMENT/PLAN:1. Sinobronchitis - ICD9: 473.9, 490, ICD10: J32.9, J40- Will begin treatment with Doxycline- Supportive care with plenty of fluids, rest, and analgesia prn.- Follow up in 3-5 days if symptoms persist or worsen.Referring Provider: SELF [[id number]]Allergies As of Date: 09/04/2017(No Known Allergies)Date Reviewed: 09/04/2017Reviewed by: Orlando Suggs - Fully AssessedReason for Visit: Cough [28] Cmt: x 10 day Chest Congestion [236] Cmt: x 10 daysPrimary Visit Diagnosis:Sinobronchitis [J32.9, J40]Order(s):doxycycline monohydrate 100 mg tabletTake 1 tablet by mouth twice daily for 10 days.Disp: 20 tabletRfl: 0 benzonatate (TESSALON PERLE) 100 mg capsuleTake 2 capsules by mouth three times daily as needed.Disp: 30 capsuleRfl: 0Prescriptions as of 09/04/2017 Sig: METOPROLOL SUCCINATE ER 50 MG* Take 50 mg by mouth once ian* MULTIVITAMIN TABLET Take 1 tablet by mouth once d* DOXYCYCLINE MONOHYDRATE 100 M* Take 1 tablet by mouth twice * BENZONATATE 100 MG CAPSULE Take 2 capsules by mouth thre*Problem List As Of Date 09/04/2017 Noted Resolved Cardiomyopathy, hypertrophic nonobstructive (HC*INVALID FOR* Other instructions from your clinician: ASSESSMENT/PLAN: 1. Sinobronchitis - ICD9: 473.9, 490, ICD10: J32.9, J40 - Will begin treatment with Doxycline - Supportive care with plenty of fluids, rest, and analgesia prn. - Follow up in 3-5 days if symptoms persist or worsen.Prescriptions ordered this encounter Disp Refills Start End DOXYCYCLINE MONOHYDRATE 100 MG TABLET 20 t* 0 09/04/2017 09/14/2017 Cmt: May transfer to Hyclate if less expensive. Route: ORAL Sig: Take 1 tablet by mouth twice daily for 10 days. BENZONATATE 100 MG CAPSULE 30 c* 0 09/04/2017 Route: ORAL Sig: Take 2 capsules by mouth three times daily as needed. Status:Closed by ORLANDO SUGGS CNP on 09/04/17 [facility] PROGRESSon 09-04-2017 PROGRESS HNO ID: [id number] thor: Orlando (Silver) Kiki: (none)Author Type: Nurse PractitionerType: Progress NotesFiled: 09/04/2017 6:20 PMNote Text:SubjectiveHPIHPI Sharlene Dickson is a 46 year old male who presents today for CC ofcough, sinus congestion and cough. This started 10 days ago. Has triedotc medication. Symptoms are worsened by nothing. Risk factors noneknow. Intermittent cigarette smoker..Patient presents with:Cough: x 10 dayChest Congestion: x 10 daysPAST MEDICAL HISTORYDiagnosis Date- Aortic sclerosis- HOCM (hypertrophic obstructive cardiomyopathy) (HCC) ~2012 Dx ~2012 w/u murmur.- HTN (hypertension) ~2012- MR (mitral regurgitation) ~2012- Sleep apnea Uses Cpap.- Syncope ~2011 x1 in 2011 dehydrated, had a cold.- Systolic anterior movement of mitral valve ~2012 Dx 2013.PAST SURGICAL HISTORYProcedure Laterality Date- TONSILLECTOMY HXALLERGIES Patient has no known allergies.MEDICATIONSmeto prolol succinate ER (TOPROL XL) 50 mg 24 hr tablet Take 50 mg by mouthonce daily.multivitamin tablet Take 1 tablet by mouth once daily.FAMILY HISTORYProblem Relation Age of Onset- Stroke Mother Living age 60s. Does not know her well. H/o stroke at age 40s.- Healthy [Other] [OTHER] Father Living age 60s. Healthy.- Healthy [Other] [OTHER] Brother Living age 40s. Healthy.- Healthy [Other] [OTHER] Child 1 child, daughter. Living AND healthy age 23.- Healthy [Other] [OTHER] Grandchild 1 grandchild, grandson. Living AND healthy age 2 months.Social HistorySubstance Use Topics- Smoking status: Former Smoker Packs/day: 0.50 Years: 20.00 Types: Cigarettes Quit date: 06/14/2012- Smokeless tobacco: Former User Types: Chew Quit date: 01/30/2014- Alcohol use 4.0 oz/week 4 Shots of liquor per weekReview of SystemsConstitutional: Negative for chills, fever and weight loss.HENT: Positive for congestion. Negative for ear pain, nosebleeds and sorethroat.Respiratory: Positive for cough. Negative for shortness of breath andwheezing.Cardiovascula r: Negative for chest pain.Musculoskeletal: Negative for neck pain.ObjectiveBlood pressure 116/68, pulse (!) 50, temperature 36.6 ?C (97.8 ?F), resp.rate 16, weight 135.6 kg (299 lb), SpO2 95 %.Physical ExamConstitutional: He is oriented to person, place, and time andwell-developed, well-nourished, and in no distress. Non-toxic appearance.He does not have a sickly appearance. No distress.HENT:Head: Normocephalic and atraumatic.Right Ear: Hearing, tympanic membrane, external ear and ear canal normal.Left Ear: Hearing, tympanic membrane, external ear and ear canal normal.Nose: Nose normal.Mouth/Throat: Uvula is midline, oropharynx is clear and moist and mucousmembranes are normal.Eyes: Conjunctivae and lids are normal. Pupils are equal, round, andreactive to light. Right eye exhibits no discharge. Left eye exhibits nodischarge. No scleral icterus.Neck: Trachea normal and normal range of motion. Neck supple.Cardiovascular: Normal rate, regular rhythm and normal heart sounds.Pulmonary/Chest: Effort normal and breath sounds normal.Loose cough during examLymphadenopathy: He has no cervical adenopathy.Neurological: He is alert and oriented to person, place, and time.Skin: No rash noted. He is not diaphoretic. ASSESSMENT/PLAN:1. Sinobronchitis - ICD9: 473.9, 490, ICD10: J32.9, J40- Will begin treatment with Doxycline- Supportive care with plenty of fluids, rest, and analgesia prn.- Follow up in 3-5 days if symptoms persist or worsen.-If you experience chest pain/shortness of breath go to ERPrescription instructions reviewed with patient as applicable. Patientadvised if symptoms do not improve or if symptoms worsen sooner, tocontact the office for further evaluation by their primary care physician. Potential red flag symptoms discussed with the patient. Reviewedappropriate action plan to take if red flag symptoms occur. Patientagreeable to treatment plan.Orlando Suggs APRN.ORDER BUILDER LOADER [facility] Office Visiton 10-04-2016 Documentation of current medications (procedure) Done Invalid Interpretation Code [employer] Phone: [phone] Fall risk assessment Fall risk assessment Invali d Interpretation Code [facility] Phone: [phone] Clinical Lists Update: Prelo fruit rancher 09-28-2016 Left ventricular Ejection fraction 70 % Invalid Interpretation Code [facility] Phone: [phone] Office Visiton 10-06-2015 Documentation of current medications (procedure) Done Invalid Interpretation Code [facility] Phone: [phone] Clinical Lists Update: Prelo fruit rancher 07-13-2015 basophils as percent of blood leukocytes, manual count 0.8 % Invalid Interpretation Code [employer] Work Phone: [phone] eosinophils as percent of blood leukocytes, manual count 2.7 % Invalid Interpretation Code [employer] Phone: [phone] Erythrocytes (RBC) 5.11 10*6/uL Invalid Interpretation Code [facility] [employer] Work Phone: [phone] Hematocrit (HCT) 43.9 % Invalid Interpretation Code [facility] [employer] Work Phone: [phone] Hemoglobin (HGB) 15.1 g/dL Invalid Interpretation Code [facility] [employer] Work Phone: [phone] Lymphocytes 2.44 10*3/uL Invalid Interpretation Code [employer] Work Phone: [phone] Lymphocytes/100 leukocytes 46.2 % High [employer] Work Phone: [phone] MCH 29.5 pg Invalid Interpretation Code [employer] Work Phone: [phone] MCHC 34.4 g/dL Invalid Interpretation Code [employer] Work Phone: [phone] MCV 85.9 fL Invalid Interpretation Code [employer] Work Phone: [phone] Monocytes/100 leukocytes 9.5 % Invalid Interpretation Code [employer] Work Phone: [phone] Neutrophils 2.2 10*3/uL Invalid Interpretation Code [employer] Work Phone: [phone] neutrophils, band form as percent of blood leukocytes, manual count 40.6 % Low [employer] Work Phone: [phone] Platelets 216 10*3/mm3 Invalid Interpretation Code [employer] Work Phone: [phone] PMV by Foreign 9.5 fL Invalid Interpretation Code [employer] Work Phone: [phone] RDW-CA 13.8 % Invalid Interpretation Code [employer] Work Phone: [phone] WBC (Leukocytes) 5.3 10*3/uL Invalid Interpretation Code [employer] Work Phone: [phone] Office Visiton 03-31-2015 Tobacco use CPHS Former smoker Invalid Interpretation Code [facility] Phone: [phone] Clinical Lists Update: Prelo fruit rancher 05-06-2014 Alanine aminotransferase (ALT) 54 U/L Invalid Interpretation Code [employer] Work Phone: [phone] Alkaline phosphatase (ALP) 69 U/L Invalid Interpretation Code [employer] Work Phone: [phone] Anion gap 5 mmol/L Invalid Interpretation Code [employer] Work Phone: [phone] Aspartate aminotransferase (AST) 22 U/L Invalid Interpretation Code [employer] Work Phone: [phone] BUN/Creatinine Ratio 14.4 mg/mg Invalid Interpretation Code [employer] Work Phone: [phone] Chloride 103 mmol/L Invalid Interpretation Code [employer] Work Phone: [phone] Cholesterol 128 mg/dL Invalid Interpretation Code [employer] Work Phone: [phone] CO2 29.0 mmol/L Invalid Interpretation Code [employer] Work Phone: [phone] Creatinine 0.9 mg/dL Invalid Interpretation Code [employer] Work Phone: [phone] Glucose 83 mg/dL Invalid Interpretation Code [employer] Work Phone: [phone] HDL Cholesterol 48 mg/dL Invalid Interpretation Code [employer] Work Phone: [phone] LDL Cholesterol 58 mg/dL Invalid Interpretation Code [employer] Work Phone: [phone] Potassium 3.7 mmol/L Invalid Interpretation Code [employer] Work Phone: [phone] Sodium 137 mmol/L Invalid Interpretation Code [employer] Work Phone: [phone] Triglyceride 111 mg/dL Invalid Interpretation Code [employer] Work Phone: [phone] Urea nitrogen 13 mg/dL Invalid Interpretation Code [employer] Work Phone: [phone] very low density lipoproteins 22 mg/dL Invalid Interpretation Code [employer] Work Phone: [phone] Office Visiton 02-11-2014 cardiac risk group A Invalid Interpretation Code [facility] Phone: [phone] Dietary management education, guidance, and counseling (procedure) yes Invalid Interpretation Code [facility] Phone: [phone] General cardiovascular disease 10Y risk [#] [place].D'Agostmartha 2 % Invalid Interpretation Code [facility] Phone: [phone] Tobacco smoking status NHIS Former Invalid Interpretation Code [employer] Work Phone: [phone] EKG Report: [facility] ECG Obse rvationson 06-27-2012 electrocardiogram interpretation Sinus Rhythm WITHIN NORMAL LIMITS Invalid Interpretation Code [facility] Phone: [phone] GE use only - for [employer] import when terms are not otherwise specified 415 ms Invalid Interpretation Code [facility] Phone: [phone] P wave axis, electrocardiogram 18 deg Invalid Interpretation Code [employer] Work Phone: [phone] [place] interval, electrocardiogram 174 ms Invalid Interpretation Code [employer] Work Phone: [phone] Pulse (Heart Rate) 69 /min Invalid Interpretation Code [facility] Work Phone: [phone] QRS axis, electrocardiogram -4 deg Invalid Interpretation Code [facility] Work Phone: [phone] QRS duration, electrocardiogram 108 ms Invalid Interpretation Code [facility] Work Phone: [phone] QT interval, electrocardiogram new path ms Invalid Interpretation Code [facility] Work Phone: [phone] T wave axis, electrocardiogram 13 deg Invalid Interpretation Code [facility] Work Phone: [phone] Clinical Lists Update: Prelo fruit rancher 03-17-2012 Albumin 4.0 g/dL Invalid Interpretation Code [facility] Work Phone: [phone] Albumin/Globulin Ratio 1.1 {ratio} Invalid Interpretation Code [facility] Work Phone: [phone] Bilirubin (total) 1.10 mg/dL High [facility] Work Phone: [phone] Calcium 8.7 mg/dL Invalid Interpretation Code [facility] Work Phone: [phone] Globulin 3.6 g/dL Invalid Interpretation Code [facility] Work Phone: [phone] Protein 7.6 g/dL Invalid Interpretation Code [facility] Work Phone: [phone] Vital Signs Date Time Vital Sign Value Performing Clinician Facility 10-21-2024 08:10-0400 Body mass index (BMI) [Ratio] 47.47 kg/m2 David Pineda MD Work Phone: [facility] 10-21-2024 08:10-0400 Body weight 158.76 kg David Pineda MD Work Phone: [facility] 10-21-2024 08:10-0400 Diastolic blood pressure 80 mm[Hg] David Pineda MD Work Phone: [facility] 10-21-2024 08:10-0400 Heart rate 52 /min David Pineda MD Work Phone: [facility] 10-21-2024 08:10-0400 Respiratory rate 18 /min David Pineda MD Work Phone: [facility] 10-21-2024 08:10-0400 SaO2% (BldA) [Mass fraction] 93 % David Pineda MD Work Phone: [facility] 10-21-2024 08:10-0400 Systolic blood pressure 123 mm[Hg] David Pineda MD Work Phone: [facility] 08-28-2024 16:46-0400 Body height 182.[address] David Pineda MD Work Phone: [facility] 08-28-2024 16:46-0400 Body mass index (BMI) [Ratio] 47.5 kg/m2 Dr. David Pineda MD Work Phone: [facility] 08-28-2024 16:46-0400 Body temperature 98.4 [degF] Dr. David Pineda MD Work Phone: [facility] 08-28-2024 16:46-0400 Body weight 158.[address] David Pineda MD Work Phone: [facility] 08-28-2024 16:46-0400 Diastolic blood pressure 80 mm[Hg] Dr. David Pineda MD Work Phone: [facility] 08-28-2024 16:46-0400 Heart rate 59 /min Dr. David Pineda MD Work Phone: [facility] 08-28-2024 16:46-0400 Respiratory rate 17 /min Dr. David Pineda MD Work Phone: [facility] 08-28-2024 16:46-0400 SaO2% (BldA) [Mass fraction] 96 % Dr. David Pineda MD Work Phone: [facility] 08-28-2024 16:46-0400 Systolic blood pressure 124 mm[Hg] Dr. David Pineda MD Work Phone: [facility] 06-27-2024 08:21-0400 Body mass index (BMI) [Ratio] 48.8 kg/m2 Dr. David Pineda MD Work Phone: [facility] 06-27-2024 08:21-0400 Body weight 163.[address] David Pineda MD Work Phone: [facility] 06-27-2024 08:21-0400 Diastolic blood pressure 77 mm[Hg] Dr. David Pineda MD Work Phone: [facility] 06-27-2024 08:21-0400 Heart rate 50 /min Dr. David Pineda MD Work Phone: [facility] 06-27-2024 08:21-0400 Respiratory rate 16 /min Dr. David Pineda MD Work Phone: [facility] 06-27-2024 08:21-0400 Systolic blood pressure 123 mm[Hg] Dr. David Pineda MD Work Phone: [facility] 04-22-2024 09:50-0500 Body height 182.9 cm David Pineda MD Work Phone: [facility] 04-22-2024 09:50-0500 Body mass index (BMI) [Ratio] 48.66 kg/m2 David Pineda MD Work Phone: [facility] 04-22-2024 09:50-0500 Body temperature 97.3 [degF] David Pineda MD Work Phone: [facility] 04-22-2024 09:50-0500 Body weight 162.75 kg David Pineda MD Work Phone: [facility] 04-22-2024 09:50-0500 Diastolic blood pressure 85 mm[Hg] David Pineda MD Work Phone: [facility] 04-22-2024 09:50-0500 Heart rate 47 /min David Pineda MD Work Phone: [facility] 04-22-2024 09:50-0500 Respiratory rate 16 /min David Pineda MD Work Phone: [facility] 04-22-2024 09:50-0500 SaO2% (BldA) [Mass fraction] 94 % David Pineda MD Work Phone: [facility] 04-22-2024 09:50-0500 Systolic blood pressure 143 mm[Hg] David Pineda MD Work Phone: [facility] 10-16-2023 10:18-0400 Body height 182.9 cm David Pineda MD Work Phone: [facility] 10-16-2023 10:18-0400 Body mass index (BMI) [Ratio] 47.47 kg/m2 David Pineda MD Work Phone: [facility] 10-16-2023 10:18-0400 Body temperature 97.81 [degF] David Pineda MD Work Phone: [facility] 10-16-2023 10:18-0400 Body weight 158.76 kg David Pineda MD Work Phone: [facility] 10-16-2023 10:18-0400 Diastolic blood pressure 76 mm[Hg] David Pineda MD Work Phone: [facility] 10-16-2023 10:18-0400 Heart rate 60 /min David Pineda MD Work Phone: [facility] 10-16-2023 10:18-0400 Respiratory rate 18 /min David Pineda MD Work Phone: [facility] 10-16-2023 10:18-0400 SaO2% (BldA) [Mass fraction] 97 % David Pineda MD Work Phone: [facility] 10-16-2023 10:18-0400 Systolic blood pressure 130 mm[Hg] David Pineda MD Work Phone: [facility] 04-17-2023 10:14-0500 Body height 182.9 cm David Pineda MD Work Phone: [facility] 04-17-2023 10:14-0500 Body temperature 97.59 [degF] David Pineda MD Work Phone: [facility] 04-17-2023 10:14-0500 Body weight 159.67 kg David Pineda MD Work Phone: [facility] 04-17-2023 10:14-0500 Diastolic blood pressure 84 mm[Hg] David Pineda MD Work Phone: [facility] 04-17-2023 10:14-0500 Heart rate 52 /min David Pineda MD Work Phone: [facility] 04-17-2023 10:14-0500 Respiratory rate 18 /min David Pineda MD Work Phone: [facility] 04-17-2023 10:14-0500 SaO2% (BldA) [Mass fraction] 97 % David Pineda MD Work Phone: [facility] 04-17-2023 10:14-0500 Systolic blood pressure 126 mm[Hg] David Pineda MD Work Phone: [facility] 03-13-2023 09:37-0500 Body height 182.[address] David Pineda Work Phone: [facility] 03-13-2023 09:37-0500 Body mass index (BMI) [Ratio] 46 kg/m2 Dr. David Pineda Work Phone: [facility] 03-13-2023 09:37-0500 Body weight 154.[address] David Pineda Work Phone: [facility] 03-13-2023 09:37-0500 Diastolic blood pressure 63 mm[Hg] Dr. David Pineda Work Phone: [facility] 03-13-2023 09:37-0500 Heart rate 48 /min Dr. David Pineda Work Phone: [facility] 03-13-2023 09:37-0500 Respiratory rate 18 /min Dr. David Pineda Work Phone: [facility] 03-13-2023 09:37-0500 SaO2% (BldA) [Mass fraction] 96 % Dr. David Pineda Work Phone: [facility] 03-13-2023 09:37-0500 Systolic blood pressure 106 mm[Hg] Dr. David Pineda Work Phone: [facility] 10-10-2022 11:04-0400 Body height 182.9 cm David Pineda MD Work Phone: [facility] 10-10-2022 11:04-0400 Body temperature 97.3 [degF] David Pineda MD Work Phone: [facility] 10-10-2022 11:04-0400 Diastolic blood pressure 86 mm[Hg] David Pineda MD Work Phone: [facility] 10-10-2022 11:04-0400 Heart rate 80 /min David Pineda MD Work Phone: [facility] 10-10-2022 11:04-0400 Respiratory rate 18 /min David Pineda MD Work Phone: [facility] 10-10-2022 11:04-0400 SaO2% (BldA) [Mass fraction] 95 % David Pineda MD Work Phone: [facility] 10-10-2022 11:04-0400 Systolic blood pressure 122 mm[Hg] David Pineda MD Work Phone: [facility] 09-09-2022 10:56-0400 Body height 182.[address] David Pineda Work Phone: [facility] 09-09-2022 10:56-0400 Body mass index (BMI) [Ratio] 46.7 kg/m2 Dr. David Pineda Work Phone: [facility] 09-09-2022 10:56-0400 Body weight 156.[address] David Pineda Work Phone: [facility] 09-09-2022 10:56-0400 Diastolic blood pressure 79 mm[Hg] Dr. David Pineda Work Phone: [facility] 09-09-2022 10:56-0400 Heart rate 49 /min Dr. David Pineda Work Phone: [facility] 09-09-2022 10:56-0400 Respiratory rate 18 /min Dr. David Pineda Work Phone: [facility] 09-09-2022 10:56-0400 Systolic blood pressure 122 mm[Hg] Dr. David Pineda Work Phone: [facility] 07-04-2022 13:05-0400 Body height 182.9 cm David Pineda MD Work Phone: [facility] 07-04-2022 13:05-0400 Body temperature 96.8 [degF] David Pineda MD Work Phone: [facility] 07-04-2022 13:05-0400 Body weight 158.02 kg David Pineda MD Work Phone: [facility] 07-04-2022 13:05-0400 Diastolic blood pressure 76 mm[Hg] David Pineda MD Work Phone: [facility] 07-04-2022 13:05-0400 Heart rate 60 /min David Pineda MD Work Phone: [facility] 07-04-2022 13:05-0400 Respiratory rate 18 /min David Pineda MD Work Phone: [facility] 07-04-2022 13:05-0400 SaO2% (BldA) [Mass fraction] 99 % David Pineda MD Work Phone: [facility] 07-04-2022 13:05-0400 Systolic blood pressure 132 mm[Hg] David Pineda MD Work Phone: [facility] 04-04-2022 13:17-0500 Body height 182.9 cm David Pineda MD Work Phone: [facility] 04-04-2022 13:17-0500 Body temperature 97.3 [degF] David Pineda MD Work Phone: [facility] 04-04-2022 13:17-0500 Body weight 158.76 kg David Pineda MD Work Phone: [facility] 04-04-2022 13:17-0500 Diastolic blood pressure 80 mm[Hg] David Pineda MD Work Phone: [facility] 04-04-2022 13:17-0500 Heart rate 64 /min David Pineda MD Work Phone: [facility] 04-04-2022 13:17-0500 Respiratory rate 14 /min David Pineda MD Work Phone: [facility] 04-04-2022 13:17-0500 SaO2% (BldA) [Mass fraction] 98 % David Pineda MD Work Phone: [facility] 04-04-2022 13:17-0500 Systolic blood pressure 130 mm[Hg] David Pineda MD Work Phone: [facility] 09-27-2021 13:21-0400 Body height 182.9 cm David Pineda MD Work Phone: [facility] 09-27-2021 13:21-0400 Body temperature 97.81 [degF] David Pineda MD Work Phone: [facility] 09-27-2021 13:21-0400 Body weight 142.34 kg David Pineda MD Work Phone: [facility] 09-27-2021 13:21-0400 Diastolic blood pressure 76 mm[Hg] David Pineda MD Work Phone: [facility] 09-27-2021 13:21-0400 Heart rate 52 /min David Pineda MD Work Phone: [facility] 09-27-2021 13:21-0400 Respiratory rate 18 /min David Pineda MD Work Phone: [facility] 09-27-2021 13:21-0400 SaO2% (BldA) [Mass fraction] 96 % David Pineda MD Work Phone: [facility] 09-27-2021 13:21-0400 Systolic blood pressure 128 mm[Hg] David Pineda MD Work Phone: [facility] 09-27-2021 09:19-0400 Body height 182.[address] David Pineda Work Phone: [facility] Work Phone: 09-27-2021 09:19-0400 Body mass index (BMI) [Ratio] 42 kg/m2 Dr. David Pineda Work Phone: [facility] Work Phone: 09-27-2021 09:19-0400 Body weight 140.[address] David Pineda Work Phone: [facility] Work Phone: 09-27-2021 09:19-0400 Diastolic blood pressure 80 mm[Hg] Dr. David Pineda Work Phone: [facility] Work Phone: 09-27-2021 09:19-0400 Heart rate 49 /min Dr. David Pineda Work Phone: [facility] Work Phone: 09-27-2021 09:19-0400 Systolic blood pressure 117 mm[Hg] Dr. David Pineda Work Phone: [facility] Work Phone: 03-31-2021 12:42-0500 Body temperature 97.39 [degF] David Pineda MD Work Phone: [facility] 03-31-2021 12:42-0500 Body weight 150.77 kg David Pineda MD Work Phone: [facility] 03-31-2021 12:42-0500 Diastolic blood pressure 78 mm[Hg] David Pineda MD Work Phone: [facility] 03-31-2021 12:42-0500 Heart rate 48 /min David Pineda MD Work Phone: [facility] 03-31-2021 12:42-0500 Respiratory rate 16 /min David Pineda MD Work Phone: [facility] 03-31-2021 12:42-0500 SaO2% (BldA) [Mass fraction] 96 % David Pineda MD Work Phone: [facility] 03-31-2021 12:42-0500 Systolic blood pressure 125 mm[Hg] David Pineda MD Work Phone: [facility] 10-04-2016 16:01-0400 BMI (Body Mass Index) 39.86 kg/m2 Martita [facility] Work Phone: 10-04-2016 16:01-0400 BP Diastolic 70 mm[Hg] Martita Dickson [facility] Work Phone: 10-04-2016 16:01-0400 BP Systolic 110 mm[Hg] Martita Dickson [facility] Work Phone: 10-04-2016 16:01-0400 Height 182.88 cm Martita Dickson [facility] Work Phone: 10-04-2016 16:01-0400 Pulse (Heart Rate) 56 /min Martita Dickson [facility] Work Phone: 10-04-2016 16:01-0400 Respiratory Rate 20 /min Martita Dickson [facility] Work Phone: 10-04-2016 16:01-0400 Weight 133.31 kg Martita Dickson [facility] Work Phone: 10-06-2015 15:59-0400 BMI (Body Mass Index) 37.89 kg/m2 Shannan [facility] Work Phone: 10-06-2015 15:59-0400 BP Diastolic 60 mm[Hg] Shannan López RN [facility] Work Phone: 10-06-2015 15:59-0400 BP Systolic 114 mm[Hg] Shannan López RN [facility] Work Phone: 10-06-2015 15:59-0400 BSA (Body Surface Area) 2.46 m2 [facility] Work Phone: 10-06-2015 15:59-0400 Pulse (Heart Rate) 52 /min Shannan López RN [facility] Work Phone: 10-06-2015 15:59-0400 Respiratory Rate 20 /min [facility] Work Phone: 10-06-2015 15:59-0400 Weight 126.74 kg [facility] Work Phone: 06-27-2012 11:26-0400 Height 182.88 cm Shannan [facility] Work Phone: Encounters Encounter Date Encounter Type Care Provider Facility Start: 10-21-2024 End: 10-21-2024 Office outpatient visit 25 minutes David Pineda MD Work Phone: [facility] Comment on above: Hypertension, essent ial (Primary Dx); Paroxysmal atrial fibrillation (HCC); Hypertrophic cardiomyopathy (HCC); ARNAV (obstructive sleep apnea) Start: 10-21-2024 End: 10-21-2024 ambulatory DAVID PINEDA Facility:[id number] Start: 08-28-2024 End: 08-28-2024 Patient encounter procedure Filippo Argu[facility] Work Phone: Start: 08-28-2024 End: 08-28-[address] David Pineda MD Work Phone: [facility] Work Phone: Start: 06-27-2024 End: 06-27-2024 Patient encounter procedure Harjit MILLER -[facility] Work Phone: Start: 06-27-2024 End: 06-27-2024 ambulatory David Pineda Facility:[facility] Start: 06-07-2024 End: 06-07-2024 Chart abstracting David Pineda MD Work Phone: [facility] Start: 05-27-2024 Non-patient / Non-visit Dr. Steven BERMUDEZ [facility] Start: 05-27-2024 End: 05-27-[address] David Pineda MD Work Phone: [facility] Work Phone: Start: 05-27-2024 End: 05-27-2024 Patient encounter procedure Lacy Mcgarry PA -[facility] Work Phone: Start: 05-27-2024 End: 05-27-2024 ambulatory David Pineda Facility:[facility] Start: 04-22-2024 End: 04-22-2024 Patient encounter status David Pineda MD Work Phone: [facility] Start: 04-22-2024 End: 04-22-2024 Periodic preventive med est patient 40-64yrs David Pineda MD Work Phone: [facility] Comment on above: Wellness examination (Primary Dx); Screening for depression; Encounter for screening examination for other mental health and behavioral disorders; Hypertension, essential; Screening PSA (prostate specific antigen); Screening for deficiency anemia; Pure hypercholesterolemia; Hyperglycemia; Hypertrophic cardiomyopathy (HCC) Start: 04-22-2024 End: 04-22-2024 ambulatory DAVID PINEDA Facility:[id number] Start: 04-22-2024 Encounter for genera l adult medical examination without abnormal findings DAVID PINEDA [facility] Start: 04-15-2024 End: 04-25-2024 ambulatory David Pineda MD Work Phone: [facility] Start: 04-15-2024 End: 04-25-2024 Patient encounter procedure Dvaid Pineda MD Work Phone: [facility] Comment on above: Upcoming visit Apr 06 Start: 11-27-2023 End: 11-27-2023 ambulatory David Pineda Facility:[facility] Start: 10-16-2023 Telephone encounter David Pineda MD Work Phone: [facility] Comment on above: Letter Start: 10-16-2023 End: 10-16-2023 Office outpatient visit 15 minutes David Pineda MD Work Phone: [facility] Comment on above: Paroxysmal atrial fi brillation (HCC) (Primary Dx); Hypertrophic cardiomyopathy (HCC); ARNAV (obstructive sleep apnea); jail current use of anticoagulant therapy Start: 08-17-2023 Patient encounter procedure [facility] Prov ider [facility] Department Start: 05-26-2023 Chart abstracting David Pineda MD Work Phone: [facility] Start: 05-22-2023 Non-patient / Non-visit Dr. Ra christopher Pineda Work Phone: [facility] Start: 05-22-2023 End: 05-22-[address] David Pineda Work Phone: [facility] Work Phone: Start: 05-22-2023 End: 05-22-[address] David Pineda Work Phone: [facility] Work Phone: Start: 04-17-2023 Telephone encounter David Pineda MD Work Phone: [facility] Comment on above: Work Note Start: 04-17-2023 End: 04-17-2023 Patient encounter status David Pineda MD Work Phone: [facility] Work Phone: Start: 04-17-2023 End: 04-17-2023 Periodic preventive med est patient 40-64yrs David Pineda MD Work Phone: [facility] Comment on above: Wellness examination (Primary Dx); Encounter for screening for depression; Hypertension, essential; Screening PSA (prostate specific antigen); Screening for deficiency anemia; Pure hypercholesterolemia Start: 03-13-2023 End: 03-13-[address] [facility] Work Phone: Start: 12-19-2022 Patient encounter procedure [facility] Department Start: 11-21-2022 [facility] Start: 10-10-2022 Telephone encounter David Pineda MD Work Phone: [facility] Comment on above: Opened In Error Start: 10-10-2022 End: 10-10-2022 Office outpatient visit 15 minutes David Pineda MD Work Phone: [facility] Comment on above: Paroxysmal atrial fi brillation (HCC) (Primary Dx); Hypertrophic non-obstructive cardiomyopathy (HCC); Hypertension, essential; ARNAV (obstructive sleep apnea) Start: 09-24-2022 End: 09-24-[address] David Pineda Work Phone: [facility] Work Phone: Start: 09-24-2022 End: 09-24-[address] David Pineda Work Phone: [facility] Work Phone: Start: 09-20-2022 End: 09-20-[address] [facility] Work Phone: Start: 09-09-2022 End: 09-09-2022 Patient encounter procedure [facility] Provider [facility] Department Start: 07-12-2022 Telephone encounter David Pineda MD Work Phone: [facility] Comment on above: Patient Question Start: 07-06-2022 Telephone encounter David Pineda MD Work Phone: [facility] Comment on above: Opened In Error Start: 07-05-2022 Telephone encounter David Pineda MD Work Phone: [facility] Comment on above: Patient Update Start: 07-04-2022 End: 07-04-2022 Office outpatient visit 15 minutes David Pineda MD Work Phone: [facility] Comment on above: ARNAV (obstructive sle ep apnea) (Primary Dx) Start: 05-30-2022 Non-patient / Non-visit Dr. Ra christopher Pineda Work Phone: [facility] Start: 05-30-2022 End: 05-30-[address] David Pineda Work Phone: [facility] Work Phone: Start: 05-30-2022 End: 05-30-[address] David Pineda Work Phone: [facility] Start: 04-04-2022 Telephone encounter David Pineda MD Work Phone: [facility] Comment on above: Results Start: 04-04-2022 End: 04-04-2022 Patient encounter status David Pineda MD Work Phone: [facility] Start: 04-04-2022 End: 04-04-2022 Periodic preventive med est patient 40-64yrs David Pineda MD Work Phone: [facility] Comment on above: Wellness examination (Primary Dx); Hypertension, essential; Paroxysmal atrial fibrillation (HCC); Obstructive sleep apnea; Lipid screening; Screening PSA (prostate specific antigen); Screening for deficiency anemia Start: 03-11-2022 Patient encounter procedure Ccf Prov ider [facility] Department Start: 11-22-2021 Non-patient / Non-visit Dr. Ra christopher Pineda Work Phone: [facility] Start: 11-22-2021 End: 11-22-[address] David Pineda Work Phone: [facility] Work Phone: Start: 11-22-2021 End: 11-22-[address] [facility] Start: 10-11-2021 Non-patient / Non-visit Dr. Ra christopher Pineda Work Phone: [facility] Start: 10-11-2021 End: 10-11-[address] [facility] Start: 09-27-2021 End: 09-27-2021 Office outpatient visit 15 minutes David Pineda MD Work Phone: [facility] Comment on above: Cardiomyopathy, hype rtrophic nonobstructive (HCC) (Primary Dx); Atrial fibrillation, unspecified type (HCC); Hypertension, unspecified type; Hypertrophic cardiomyopathy (HCC); Obstructive sleep apnea; Colon cancer screening; Encounter for screening for malignant neoplasm of prostate Start: 09-27-2021 End: 09-27-[address] David Pineda Work Phone: [facility] Start: 09-11-2021 End: 09-11-2021 Patient encounter procedure [facility] Start: 08-23-2021 ambulatory Yesika Rojas LPN [facility] Start: 07-26-2021 Chart abstracting David Pineda MD Work Phone: [facility] Start: 09-04-2017 End: 09-05-2017 Ambulatory [facility] Procedures Date Procedure Procedure Detail Performing Clinician Start: 05-27-2024 CBC/DIFF (OUTSIDE [facility]) O ther Start: 05-27-2024 Comprehensive metabo lic 2000 panel - Serum or Plasma Other Start: 05-27-2024 Hemoglobin A1c/Hemoglobin.total in Blood Other Start: 05-27-2024 LIPID PANEL BASIC Other Start: 05-27-2024 Lipid 1996 panel - S milo or Plasma David Pineda MD Work Phone: Start: 04-22-2024 Adult depression scr eening assessment David Pineda MD Work Phone: Start: 05-23-2023 Comprehensive metabo lic 2000 panel - Serum or Plasma Other (Historical) Start: 09-27-2021 Adult depression scr eening assessment David Pineda MD Work Phone: Start: 02-15-2021 Colonoscopy David wolf MD Work Phone: Start: 10-06-2015 End: 10-06-2015 THOMAS Mena MD Start: 10-06-2015 End: 10-06-2015 Follow Up Appt 1 year Dinesh Mena MD Start: 03-31-2015 End: 03-31-2015 THOMAS Mena MD Start: 03-31-2015 End: 03-31-2015 Follow Up Appt 6 months Arely Samson Start: 02-11-2014 End: 02-11-2014 THOMAS Mena MD Start: 02-11-2014 End: 02-18-2014 Kyra Mena MD Start: 02-11-2014 End: 02-11-2014 Follow Up Appt 1 year Dinesh Mena MD Start: 02-13-2013 End: 02-13-2013 THOMAS Mena MD Start: 02-13-2013 End: 02-13-2013 Follow Up Appt 1 year Dinesh Mena MD Start: 06-27-2012 End: 06-27-2012 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 INTEGRATION ENGINEER Dinesh Mena MD Start: 06-27-2012 End: 06-27-2012 Electrocardiogram, complete Dinesh Gruber i, MD Start: 06-27-2012 End: 06-27-2012 Follow Up Appt 6 months Arely Samson Plan of Treatment Date Care Activity Detail Author Start: 02-15-2031 Colonoscopy COLONOSCOPY [facility] Start: 02-15-2031 COLORECTAL CANCER SCREENING COLORECTAL CANCER SCREENING [facility] Start: 02-15-2031 Screening for malignant neoplasm of colon [facility] Start: 05-27-2029 Lipid panel Lipid Screening [facility] Start: 05-28-2027 Diabetes Screening Diabetes Screening [facility] Start: 05-22-2026 Diabetes Screening Diabetes Screening [facility] Start: 02-17-2026 Diabetes Screening Diabetes Screening [facility] Start: 10-21-2025 Annual PCP Team Chronic Disease Visit Annual PCP Team Chronic Disease Visit [facility] Start: 04-28-2025 End: 04-28-2025 Patient encounter procedure 04/28/2025 8:20 AM EST Office Visit [facility] [address] [place] [phone] David Pineda MD [address] [place] [address] Annual [facility] Comment on above: Annual Juan Luis [facility] Start: 04-22-2025 Annual PCP Team Chronic Disease Visit Annual PCP Team Chronic Disease Visit [facility] Start: 04-22-2025 Anxiety Screening Anxiety Screening [facility] Start: 04-22-2025 Depression Screening Depression Screening [facility] Start: 11-04-2024 Influenza vaccination Influenza Vaccine (#1) [facility] Start: 10-21-2024 End: 10-21-2024 Patient encounter procedure 10/21/2024 8:10 AM EDT [facility] [address] [place] [phone] David Pineda MD [address] [place] [address] 6 month Follow Up [facility] Comment on above: 6 month Follow Up Start: 10-15-2024 Annual PCP Team Chronic Disease Visit Annual PCP Team Chronic Disease Visit [facility] Start: 04-22-2024 End: 07-22-2024 CBC W Auto Differential panel - Blood COMPLETE BLOOD COUNT AND DIFFERENTIAL Lab Routine Screening for deficiency anemia Expected: 04/22/2024, Expires: 07/22/2024 [facility] Work Phone: Comment on above: Expected: 04/22/2024, Expires: Start: 04-22-2024 End: 07-22-2024 Comprehensive metabolic 2000 panel - Serum or Plasma COMPREHENSIVE METABOLIC PANEL Lab Routine Hypertension, essential Pure hypercholesterolemia Expected: 04/22/2024, Expires: 07/22/2024 [facility] Comment on above: Expected: 04/22/2024, Expires: Start: 04-22-2024 End: 07-22-2024 Hemoglobin A1c in Blood HEMOGLOBIN A1C Lab Routine Hyperglycemia Expected: 04/22/2024, Expires: 07/22/2024 [facility] Comment on above: Expected: 04/22/2024, Expires: Start: 04-22-2024 End: 07-22-2024 Lipid 1996 panel - Serum or Plasma LIPID PANEL BASIC Lab Routine Pure hypercholesterolemia Expected: 04/22/2024, Expires: 07/22/2024 [facility] Comment on above: Expected: 04/22/2024, Expires: Start: 04-22-2024 End: 07-22-2024 PSA/PROSTATE SPECIFIC ANTIGEN SCREENING PSA/PROSTATE SPECIFIC ANTIGEN SCREENING Lab Routine Screening PSA (prostate specific antigen) Expected: 04/22/2024, Expires: 07/22/2024 [facility] Comment on above: Expected: 04/22/2024, Expires: Start: 04-22-2024 End: 04-22-2024 Patient encounter procedure 04/22/2024 10:00 AM EST Office Visit [facility] [address] [place] [phone] David Pineda MD [address] [place], [place] [id number] Annual Wellness [facility] Comment on above: Annual Wellness Start: 04-17-2024 Annual PCP Team Chronic Disease Visit Annual PCP Team Chronic Disease Visit [facility] Start: 11-05-2023 Covid-19 Vaccine () Covid-19 Vaccine () [facility] Start: 11-05-2023 Influenza vaccination [facility] Start: 10-16-2023 End: 10-16-2023 Patient encounter procedure 10/16/2023 10:20 AM EDT Office Visit [facility] [address] [place] [phone] David Pineda MD [address] [place], [place] [id number] 6 Month Follow Up [facility] Comment on above: 6 Month Follow Up Start: 10-11-2023 ANNUAL PCP TEAM CHRONIC DISEASE VISIT ANNUAL PCP TEAM CHRONIC DISEASE VISIT [facility] Start: 07-05-2023 ANNUAL PCP TEAM CHRONIC DISEASE VISIT ANNUAL PCP TEAM CHRONIC DISEASE VISIT [facility] Start: 04-17-2023 End: 07-17-2023 CBC W Auto Differential panel - Blood CBC + DIFF Lab Routine Screening for deficiency anemia Expected: 04/17/2023, Expires: 07/17/2023 [facility] Work Phone: Comment on above: Expected: 04/17/2023, Expires: Start: 04-17-2023 End: 07-17-2023 Comprehensive metabolic 2000 panel - Serum or Plasma COMP METABOLIC PANEL Lab Routine Hypertension, essential Expected: 04/17/2023, Expires: 07/17/2023 [facility] Work Phone: Comment on above: Expected: 04/17/2023, Expires: 4 Start: 04-17-2023 End: 07-17-2023 Lipid 1996 panel - Serum or Plasma LIPID PANEL BASIC Lab Routine Pure hypercholesterolemia Expected: 04/17/2023, Expires: 07/17/2023 [facility] Work Phone: Comment on above: Expected: 04/17/2023, Expires: 4 Start: 04-17-2023 End: 07-17-2023 PSA/PROSTSPECAG SCRN PSA/PROSTSPECAG SCRN Lab Routine Screening PSA (prostate specific antigen) Expected: 04/17/2023, Expires: 07/17/2023 [facility] Work Phone: Comment on above: Expected: 04/17/2023, Expires: 4 Start: 04-04-2023 ANNUAL PCP TEAM CHRONIC DISEASE VISIT ANNUAL PCP TEAM CHRONIC DISEASE VISIT [facility] Start: 03-13-2023 Evaluation of diagnostic study results [facility] Start: 03-06-2023 Behavioral Health Screening Behavioral Health Screening [facility] Start: 11-04-2022 Covid-19 Vaccine ( season) Covid-19 Vaccine ( season) [facility] Start: 11-04-2022 Influenza vaccination [facility] Start: 09-27-2022 Adult depression screening assessment DEPRESSION SCREENING [facility] Start: 09-27-2022 ANNUAL PCP TEAM CHRONIC DISEASE VISIT ANNUAL PCP TEAM CHRONIC DISEASE VISIT [facility] Start: 09-27-2022 BP CONTROLLED (<130/80) BP CONTROLLED (<130/80) [facility] Start: 09-20-2022 Patient referral [facility] Work Phone: Start: 04-04-2022 End: 06-04-2022 CBC W Auto Differential panel - Blood CBC + DIFF Lab Routine Screening for deficiency anemia Expected: 04/04/2022, Expires: 06/04/2022 [facility] Work Phone: Comment on above: Expected: 04/04/2022, Expires: 3 Start: 04-04-2022 End: 06-04-2022 Comprehensive metabolic 2000 panel - Serum or Plasma COMP METABOLIC PANEL Lab Routine Wellness examination Hypertension, essential Expected: 04/04/2022, Expires: 06/04/2022 [facility] Work Phone: Comment on above: Expected: 04/04/2022, Expires: 3 Start: 04-04-2022 End: 06-04-2022 Lipid 1996 panel - Serum or Plasma LIPID PANEL BASIC Lab Routine Lipid screening Expected: 04/04/2022, Expires: 06/04/2022 [facility] Work Phone: Comment on above: Expected: 04/04/2022, Expires: 3 Start: 04-04-2022 End: 06-04-2022 PSA/PROSTSPECAG SCRN PSA/PROSTSPECAG SCRN Lab Routine Screening PSA (prostate specific antigen) Expected: 04/04/2022, Expires: 06/04/2022 [facility] Work Phone: Comment on above: Expected: 04/04/2022, Expires: 3 Start: 03-06-2022 DEPRESSION ASSESSMENT DEPRESSION ASSESSMENT [facility] Start: 11-04-2021 Influenza vaccination INFLUENZA (#1) [facility] Start: 10-16-2021 COVID-19 VACCINE (5 - Booster for Pfizer series) COVID-19 VACCINE (5 - Booster for Pfizer series) [facility] Start: 2020 Pneumococcal Vaccine: 50+ (1 of 1 - PCV) Pneumococcal Vaccine: 50+ (1 of 1 - PCV) [facility] Start: 2020 SHINGRIX VACCINE (1 of 2) SHINGRIX VACCINE (1 of 2) [facility] Start: 04-11-2017 End: 04-11-2017 Appointment Appointment [facility] Work Phone: Start: 10-04-2016 End: 10-04-2016 Appointment Appointment [facility] Work Phone: Start: 10-04-2016 End: 10-04-2016 SYSTEM INTEGRATION ENGINEER THOMAS [facility] Work Phone: Start: 10-04-2016 End: 10-04-2016 Follow Up Appt 6 months Follow Up Appt 6 months [facility] Work Phone: Start: 10-06-2015 End: 10-06-2015 SYSTEM INTEGRATION ENGINEERDaisy GUZMAN [facility] Work Phone: Start: 10-06-2015 End: 10-06-2015 Follow Up Appt 1 year Follow Up Appt 1 year [facility] Work Phone: Start: 09-27-2015 COLOGUARD (FIT-DNA) COLOGUARD (FIT-DNA) [facility] Start: 09-27-2015 Colonoscopy COLONOSCOPY [facility] Start: 09-27-2015 COLORECTAL CANCER SCREENING COLORECTAL CANCER SCREENING [facility] Start: 09-27-[address] COLONOGRAPHY [facility] Start: 09-27-2015 DIABETES SCREEN DIABETES SCREEN [facility] Start: 09-27-2015 Diabetes Screening Diabetes Screening [facility] Start: 09-27-2015 FECAL OCCULT BLOOD FECAL OCCULT BLOOD [facility] Start: 09-27-2015 Screening for malignant neoplasm of colon [facility] Start: 09-27-2015 SIGMOIDOSCOPY SIGMOIDOSCOPY [facility] Start: 04-03-2015 End: 04-03-2015 Cardiac Referral Cardiac Referral [address], [address], [place], [address] [facility] Work Phone: Start: 03-31-2015 End: 03-31-2015 SYSTEM INTEGRATION ENGINEER THOMAS [facility] Work Phone: Start: 03-31-2015 End: 03-31-2015 Follow Up Appt 6 months Follow Up Appt 6 months [facility] Work Phone: Start: 03-31-2015 End: 03-31-2015 Follow Up Appt Other Follow Up Appt Other [facility] Work Phone: Start: 02-11-2014 End: 02-11-2014 SYSTEM INTEGRATION ENGINEER THOMAS [facility] Work Phone: Start: 02-11-2014 End: 02-11-2014 Echocardiography Echocardiogram (complete) [facility] Work Phone: Start: 02-11-2014 End: 02-11-2014 Follow Up Appt 1 year Follow Up Appt 1 year [facility] Work Phone: Start: 02-13-2013 End: 02-13-2013 SYSTEM INTEGRATION ENGINEER SYSTEM INTEGRATION ENGINEER [facility] Work Phone: Start: 02-13-2013 End: 02-13-2013 Follow Up Appt 1 year Follow Up Appt 1 year [facility] Work Phone: Start: 06-27-2012 End: 06-27-2012 SYSTEM INTEGRATION ENGINEER SYSTEM INTEGRATION ENGINEER [facility] Work Phone: Start: 06-27-2012 End: 06-27-2012 Electrocardiogram, complete EKG (In office) [facility] Work Phone: Start: 06-27-2012 End: 06-27-2012 Follow Up Appt 6 months Follow Up Appt 6 months [facility] Work Phone: Start: 2005 Lipid 1996 panel - Serum or Plasma Lipid Screening [facility] Start: 2005 Lipid panel Lipid Screening [facility] Start: 2005 LIPID SCREEN LIPID SCREEN [facility] Start: 1989 Hepatitis B Vaccine (1 of 3 - 19+ 3-dose series) Hepatitis B Vaccine (1 of 3 - 19+ 3-dose series) [facility] Start: 1989 [facility] Start: 1988 Anxiety Screening Anxiety Screening [facility] Start: 1988 BP CONTROLLED (<130/80) BP CONTROLLED (<130/80) [facility] Start: 1988 Depression Screening Depression Screening [facility] Start: 1988 HEPATITIS C SCREENING HEPATITIS C SCREENING [facility] Start: 1988 Hepatitis C screening Hepatitis C Screening [facility] Start: 1988 HIV SCREENING HIV SCREENING [facility] Start: 1988 HIV screening HIV Screening [facility] Start: 1982 Adult depression screening assessment DEPRESSION SCREENING [facility] Start: 09-27-1975 COVID-19 VACCINE (#1) COVID-19 VACCINE (#1) [facility] Start: 1970 HEPATITIS B (1 of 3 - 3-dose series) HEPATITIS B (1 of 3 - 3-dose series) [facility] Start: 1970 Hepatitis B Vaccine (1 of 3 - 3-dose series) Hepatitis B Vaccine (1 of 3 - 3-dose series) [facility] Electrocardiographic procedure [facility] Patient referral [facility] Work Phone: [facility] Immunizations Immunization Date Immunization Notes Care Provider [facility] 01-09-2024 influenza, injectabl e, madin eleanor canine kidney, preservative free David Pineda MD Work Phone: [facility] 01-09-2024 influenza virus vacc ine, unspecified formulation David Pineda MD Work Phone: [facility] 05-14-2022 zoster vaccine recombinant David Pineda MD Work Phone: [facility] 03-11-2022 zoster vaccine recombinant David Pineda MD Work Phone: [facility] 08-21-2021 COVID-19 original vaccine, age 12+ yr, monovalent (PFIZER-BIONTECH - GUNTER TOP) David Pineda MD Work Phone: [facility] 12-28-2020 COVID-19 original vaccine, age 12+ yr, monovalent (PFIZER-BIONTECH - PURPLE TOP) David Pineda MD Work Phone: [facility] 11-23-2020 influenza nasal, unspecified formulation David Pineda MD Work Phone: [facility] 11-23-2020 influenza virus vacc ine, unspecified formulation [facility]cf Provider [facility] 06-24-2020 COVID-19 original vaccine, age 12+ yr, monovalent (PFIZER-BIONTECH - PURPLE TOP) David Pineda MD Work Phone: [facility] 06-03-2020 COVID-19 original vaccine, age 12+ yr, monovalent (PFIZER-BIONTEverimaging Technology - PURPLE TOP) David Pineda MD Work Phone: [facility] Payers Date Payer Category Payer Self-pay [id number] 2023 Private Health Insurance [id number] 2011 Private Health Insurance AETNA A ETNA CHOICE POS II [id number] 2011-Present [phone] [address] [place] [address] POS [id number] 2011 Private Health Insurance [id number] 2011 Private Health Insurance [id number] Unknown [id number] Unknown [id number] Unknown [id number] Unknown [id number] Unknown [id number] Social History Date Type Detail Facility Start: 06-15-2015 End: 04-04-2022 Tobacco smoking status NHIS Ex-smoker [facility] Start: 06-14-1992 End: 06-14-2012 History of tobacco use Current smoker [facility] Start: 06-14-1992 End: 06-14-2012 History of tobacco use Cigarette Smoker [facility] End: 01-30-2014 History of tobacco use Chews Tobacco [facility] Start: 07-26-2021 End: 09-27-2021 Alcohol intake Current drinker of alcohol (finding) [facility] Start: 07-26-2021 End: 10-10-2022 Alcohol intake [facility] Start: 1970 Sex Assigned At Not on file [facility] Start: 03-26-2021 End: 03-13-2023 Tobacco smoking status NHIS Unknown if ever smoked [facility] Start: 1970 Sex Assigned At Male [facility] Start: 09-27-2021 End: 04-04-2022 History SDOH Alcohol Frequency 1 [facility] Start: 09-27-2021 End: 04-04-2022 History SDOH Social Connections Phone 3 [facility] Start: 09-27-2021 End: 04-04-2022 History SDOH Social Connections Get Together 2 [facility] Start: 09-27-2021 End: 04-04-2022 History SDOH Physical Activity DPW 0 [facility] Start: 09-27-2021 End: 04-04-2022 History SDOH Financial 5 [facility] Start: 09-27-2021 Education 16 [facility] Start: 09-17-2021 End: 09-27-2021 Exposure to SARS-CoV-2 (event) Not sure [facility] Start: 06-15-2015 End: 04-04-2022 Tobacco use and exposure Former smokeless tobacco user [facility] History of tobacco use Passive smoker [facility] Start: 04-04-2022 End: 10-21-2024 Alcohol intake Ex-drinker (finding) [facility] Start: 04-04-2022 History SDOH Physical Activity MPS 6 [facility] Start: 04-04-2022 End: 10-10-2022 Social connection and isolation panel [facility] Do you belong to any clubs or organizations such as druze groups, unions, fraternal or athletic groups, or school groups? Yes [facility] Are you now , , , , never or living with a partner? [facility] How often to you hav e a drink containing alcohol? Never [facility] Start: 02-05-2012 How many standard drinks containing alcohol do you have on a typical day? Patient does not drink [facility] Center Do you feel stress - tense, restless, nervous, or anxious, or unable to sleep at night because your mind is troubled all the time - these days [OSQ] Not at all [facility] (I/We) worried wheth er (my/our) food would run out before (I/we) got money to buy more. Never true [facility] In the past 12 month s, was there a time when you were not able to pay the mortgage or rent on time? No [facility] Start: 04-04-2022 Gender identity Identifies as male gender (finding) [facility] Start: 04-04-2022 Sexual orientation Heterosexual (finding) [facility] How often to you hav e a drink containing alcohol? Monthly or less [facility] How many standard dr inks containing alcohol do you have on a typical day? 1 or 2 [facility] Start: 06-01-2024 Sex Male (finding) [facility] Functional Status Date Assessment Result Facility 04-21-2024 Total score [AUDIT-C] 1 04/21/19 11:35 AM EST User, Ne [facility] 04-21-2024 Within the last year , have you been humiliated or emotionally abused in other ways by your partner or ex-partner? No 04/21/2024 11:35 AM EST [facility], [facility] 04-21-2024 Within the last year , have you been afraid of your partner or ex-partner? No 04/21/2024 11:35 AM EST User, [facility] 04-21-2024 Within the last year , have you been raped or forced to have any kind of sexual activity by your partner or ex-partner? No 04/21/2024 11:35 AM EST User, [facility] 04-21-2024 Within the last year , have you been kicked, hit, slapped, or otherwise physically hurt by your partner or ex-partner? No 04/21/2024 11:35 AM EST User, [facility] 04-21-2024 How often to you hav e a drink containing alcohol? Monthly or less 04/21/2024 11:35 AM EST User, [facility] Monthly or less [facility] 04-21-[address] inks containing alcohol do you have on a typical day? 1 or 2 04/21/2024 11:35 AM EST User, [facility] 1 or 2 [facility] 04-21-2024 How often do you hav e 6 or more drinks on 1 occasion? Never 04/21/2024 11:35 AM EST User, Mychart Never [facility] Clinical Notes 01-11-2017 to 10-21-2024 David Pineda MD - 10/21/2024 8:23 AM EDTHMarco A dillon MA - 10/21/2024 8:10 AM EDT Note Date & Type Note Facility 10-21-2024 Note HNO ID: [id number] Author: DAVID PINEDA MD Service: ? Author Type: Physician Type: Progress Notes Filed: 10/21/2024 08:33 Note Text: Subjective Sharlene Dickson is a 54 year old male.Patient presents today for follow-up for multiple medical problems. See list. His chronic medical problems been stable. He is compliant with his medications. He has no new complaints today. Blood pressure is under good control on current medication. He denies any episodes of RVR for his A-fib. He had his Toprol dose reduced to 25 mg daily. He is feeling better since its reduction. Pulse remains low at 52. He remains on long-term anticoagulant. Review of Systems Constitutional: Negative. HENT: Negative. Eyes: Negative. Respiratory: Negative. Cardiovascular: Negative. Gastrointestinal: Negative. Endocrine: Negative. Genitourinary: Negative. Musculoskeletal: Negative. Skin: Negative. Allergic/Immunologic: Negative. Neurological: Negative. Hematological: Negative. Psychiatric/Behavioral: Negative. PAST SURGICAL HISTORY Procedure Laterality Date CARDIOVERSION 05/2020 TONSILLECTOMY HX PAST MEDICAL HISTORY Diagnosis Date Aortic sclerosis Atrial fibrillation (HCC) Cardiomyopathy (HCC) History of cardioversion HOCM (hypertrophic obstructive cardiomyopathy) (HCC) ~2012 Dx ~2012 w/u murmur. HTN (hypertension) ~2012 MR (mitral regurgitation) ~2012 Obstructive sleep apnea Sleep apnea Uses Cpap. Syncope ~2011 x1 in 2011 dehydrated, had a cold. Systolic anterior movement of mitral valve ~2012 Dx 2012. FAMILY HISTORY Problem Relation Age of Onset Stroke Mother Living age 60s. Does not know her well. H/o stroke at age 40s. other (Healthy) Father Living age 60s. Healthy. other (Healthy) Brother Living age 40s. Healthy. other (Healthy) Child 1 child, daughter. Living AND healthy age 23. other (Healthy) Grandchild 1 grandchild, grandson. Living AND healthy age 2 months. SOCIAL HISTORY[1] ALLERGIES No Known Allergies MEDICATIONS: CPAP/BIPAP/OTHER .CPAPSettings : auto settings 5-20. metoprolol succinate ER (TOPROL XL) 50 mg 24 hr tablet Take 50 mg by mouth once daily. (Patient taking differently: Take 25 mg by mouth once daily.) rivaroxaban (XARELTO) 20 mg tablet Take 1 tablet by mouth every evening. With meal multivitamin tablet Take 1 tablet by mouth once daily. Allergies, past surgical history, family history and past medical history were reviewed per this encounter. Medications were reviewed and verified. 04/15/2024 10/18/2024 INTAKE PAIN ASSESSMENT Are you having pain associated with your visit today? No No If pain assessment is 0, no action needed. If pain assessment is positive, please see assessment and plain. Objective BP 123/80 (BP Site: Left Arm, BP Position: Sitting, BP Cuff Size: Large Adult) Pulse (!) 52 Resp 18 Wt (!) 158.8 kg (350 lb) SpO2 93% BMI 47.47 kg/m? Physical Exam Constitutional: Appearance: Normal appearance. HENT: Head: Normocephalic and atraumatic. Nose: Nose normal. Eyes: Extraocular Movements: Extraocular movements intact. Conjunctiva/sclera: Conjunctivae normal. Pupils: Pupils are equal, round, and reactive to light. Cardiovascular: Rate and Rhythm: Normal rate and regular rhythm. Pulses: Normal pulses. Heart sounds: Normal heart sounds. Pulmonary: Effort: Pulmonary effort is normal. Breath sounds: Normal breath sounds. Abdominal: General: Bowel sounds are normal. Palpations: Abdomen is soft. Musculoskeletal: General: Normal range of motion. Cervical back: Normal range of motion and neck supple. Skin: General: Skin is warm and dry. Neurological: General: No focal deficit present. Mental Status: He is alert and oriented to person, place, and time. Psychiatric: Mood and Affect: Mood normal. Behavior: Behavior normal. Procedures Assessment and Plan Encounter Diagnosis ICD-10-CM 1. Hypertension, essential I10 Blood pressure under excellent control on current medication. Continue Toprol. 2. Paroxysmal atrial fibrillation (HCC) I48.0 Stable and well-controlled on Toprol. 3. Hypertrophic cardiomyopathy (HCC) I42.2 Stable. 4. ARNAV (obstructive sleep apnea) G47.33 Improved with CPAP. Continue present medications. Monitor blood pressure regularly. Exercise as tolerated. Maintain good diet. Follow-up in 6 months. David Pineda MD October 21, 2024 10/21/2024 [1] Social History Tobacco Use Smoking status: Former Current packs/day: 0.00 Average packs/day: 0.5 packs/day for 20.0 years (10.0 ttl pk-yrs) Types: Cigarettes Start date: 06/14/1992 Quit date: 06/14/2012 Years since quittin.3 Passive exposure: Past Smokeless tobacco: Former Types: Chew Quit date: 01/30/2014 Vaping Use Vaping status: Never Used Substance Use Topics Alcohol use: Not Currently Alcohol/week: 7.0 standard drinks of alcohol Types: 4 Shots of liquor, (more content not included)... [facility] 10-21-2024 History of Presen t illness Narrative Subjective Sharlene Dickson is a 54 year old male.Patient presents today for follow-up for multiple medical problems. See list. His chronic medical problems been stable. He is compliant with his medications. He has no new complaints today. Blood pressure is under good control on current medication. He denies any episodes of RVR for his A-fib. He had his Toprol dose reduced to 25 mg daily. He is feeling better since its reduction. Pulse remains low at 52. He remains on long-term anticoagulant. Review of Systems Constitutional: Negative. HENT: Negative. Eyes: Negative. Respiratory: Negative. Cardiovascular: Negative. Gastrointestinal: Negative. Endocrine: Negative. Genitourinary: Negative. Musculoskeletal: Negative. Skin: Negative. Allergic/Immunologic: Negative. Neurological: Negative. Hematological: Negative. Psychiatric/Behavioral: Negative. PAST SURGICAL HISTORY Procedure Laterality Date CARDIOVERSION 05/2020 TONSILLECTOMY HX PAST MEDICAL HISTORY Diagnosis Date Aortic sclerosis Atrial fibrillation (HCC) Cardiomyopathy (HCC) History of cardioversion HOCM (hypertrophic obstructive cardiomyopathy) (HCC) ~2012 Dx ~2012 w/u murmur. HTN (hypertension) ~2012 MR (mitral regurgitation) ~2012 Obstructive sleep apnea Sleep apnea Uses Cpap. Syncope ~2011 x1 in 2012 dehydrated, had a cold. Systolic anterior movement of mitral valve ~2012 Dx 2013. FAMILY HISTORY Problem Relation Age of Onset Stroke Mother Living age 60s. Does not know her well. H/o stroke at age 40s. other (Healthy) Father Living age 60s. Healthy. other (Healthy) Brother Living age 40s. Healthy. other (Healthy) Child 1 child, daughter. Living & healthy age 23. other (Healthy) Grandchild 1 grandchild, grandson. Living & healthy age 2 months. SOCIAL HISTORY[1] ALLERGIES No Known Allergies MEDICATIONS: CPAP/BIPAP/OTHER .CPAPSettings : auto settings 5-20. metoprolol succinate ER (TOPROL XL) 50 mg 24 hr tablet Take 50 mg by mouth once daily. (Patient taking differently: Take 25 mg by mouth once daily.) rivaroxaban (XARELTO) 20 mg tablet Take 1 tablet by mouth every evening. With meal multivitamin tablet Take 1 tablet by mouth once daily. Allergies, past surgical history, family history and past medical history were reviewed per this encounter. Medications were reviewed and verified. 04/15/2024 10/18/2024 INTAKE PAIN ASSESSMENT Are you having pain associated with your visit today? No No If pain assessment is 0, no action needed. If pain assessment is positive, please see assessment and plain. Objective BP 123/80 (BP Site: Left Arm, BP Position: Sitting, BP Cuff Size: Large Adult) Pulse (!) 52 Resp 18 Wt (!) 158.8 kg (350 lb) SpO2 93% BMI 47.47 kg/m Physical Exam Constitutional: Appearance: Normal appearance. HENT: Head: Normocephalic and atraumatic. Nose: Nose normal. Eyes: Extraocular Movements: Extraocular movements intact. Conjunctiva/sclera: Conjunctivae normal. Pupils: Pupils are equal, round, and reactive to light. Cardiovascular: Rate and Rhythm: Normal rate and regular rhythm. Pulses: Normal pulses. Heart sounds: Normal heart sounds. Pulmonary: Effort: Pulmonary effort is normal. Breath sounds: Normal breath sounds. Abdominal: General: Bowel sounds are normal. Palpations: Abdomen is soft. Musculoskeletal: General: Normal range of motion. Cervical back: Normal range of motion and neck supple. Skin: General: Skin is warm and dry. Neurological: General: No focal deficit present. Mental Status: He is alert and oriented to person, place, and time. Psychiatric: Mood and Affect: Mood normal. Behavior: Behavior normal. Procedures Assessment and Plan Encounter Diagnosis ICD-10-CM 1. Hypertension, essential I10 Blood pressure under excellent control on current medication. Continue Toprol. 2. Paroxysmal atrial fibrillation (HCC) I48.0 Stable and well-controlled on Toprol. 3. Hypertrophic cardiomyopathy (HCC) I42.2 Stable. 4. ARNAV (obstructive sleep apnea) G47.33 Improved with CPAP. Continue present medications. Monitor blood pressure regularly. Exercise as tolerated. Maintain good diet. Follow-up in 6 months. David Pineda MD October 21, 2024 10/21/2024 [1] Social History Tobacco Use Smoking status: Former Current packs/day: 0.00 Average packs/day: 0.5 packs/day for 20.0 years (10.0 ttl pk-yrs) Types: Cigarettes Start date: 06/14/1992 Quit date: 06/14/2012 Years since quittin.3 Passive exposure: Past Smokeless tobacco: Former Types: Chew Quit date: 01/30/2014 Vaping Use Vaping status: Never Used Substance Use Topics Alcohol use: Not Currently Alcohol/week: 7.0 standard drinks of alcohol Types: 4 Shots of liquor, 3 Standard drinks or equivalent per week Drug use: No Pt here today for 6 month follow up. Denies concerns today. ARMANDO Slaughter October 21, 2024 8:10 AM documented in this encounter [facility] 10-21-2024 Note HNO ID: [id number] Author: MARCO A CARDOSO MA Service: ? Author Type: News Videographer Type: Progress Notes Filed: 10/21/2024 08:33 Note Text: Pt here today for 6 month follow up. Denies concerns today. ARMANDO Slaughter October 21, 2024 8:10 AM [facility] 06-27-2024 Evaluation note Diagnosis Onset Date Resolution Chest pain acute June 27 8:20am PAF (paroxysmal atrial fibrillation) acute June 27, 2024 8:20am Essential (primary) hypertension chronic June 27, 2024 8:20am Hypertrophic obstructive cardiomyopathy chronic June 27, 2024 8:20am ANRAV (obstructive sleep apnea) chronic June 27, 2024 8:20am [employer] [employer] Work Phone: [phone] Telephone encounter Note* Telephone Encounter - Elie Mcclendon LPN - 04/25/2024 8:10 AM EST Patient notified of result information on My Chart. Notification will be sent to this nurse if message has not been read within 2 days. Patient will be contacted by another form of communication if notification of not reading My Chart message is received. Letter sent through [employer]. Elie Mcclendon LPN April 25, 2024 8:10 AM [facility]02-20-2025 Miscellaneous Notes* Telephone Encounter - Elie Mcclendon LPN - 04/25/2024 8:10 AM EST Patient notified of result information on My Chart. Notification will be sent to this nurse if message has not been read within 2 days. Patient will be contacted by another form of communication if notification of not reading My Chart message is received. Letter sent through [employer]. Elie Mcclendon LPN April 25, 2024 8:10 AM * Telephone Encounter - David Pineda MD - 04/24/2024 2:09 PM EST Yes. For release. * Telephone Encounter - Elie Mcclendon LPN - 04/24/2024 1:35 PM EST Per Patient: Would I be able to have a work release for the cut off saw we discussed Monday? Tyrese, Kameron Letter was wrote but did not state if he was able to use right hand at work. Please advise. Elie Mcclendon LPN April 24, 2024 1:36 PM [facility] Telephone encounter Note * Telephone Encounter - David Pineda MD - 04/24/2024 2:09 PM EST Yes. For release. [facility]02-19-2025 Telephone encounter Note* Telephone Encounter - Elie Mcclendon LPN - 04/24/2024 1:35 PM EST Per Patient: Would I be able to have a work release for the cut off saw we discussed Monday? Thanks, Kameron Letter was wrote but did not state if he was able to use right hand at work. Please advise. Elie Mcclendon LPN April 24, 2024 1:36 PM [facility]02-17-2025 NoteHNO ID: [id number] Author: DAVID PINEDA MD Service: ? Author Type: Physician Type: Progress Notes Filed: 04/22/2024 10:48 Note Text: Subjective Sharlene Dickson is a 53 year old male. Kameron presents today for his annual wellness visit. Additionally follows up for hypertension and hypertrophic cardiomyopathy. Both are well-controlled on current medication. Review of Systems Constitutional: Negative. HENT: Negative. Eyes: Negative. Respiratory: Negative. Cardiovascular: Negative. Gastrointestinal: Negative. Endocrine: Negative. Genitourinary: Negative. Musculoskeletal: Negative. Skin: Negative. Allergic/Immunologic: Negative. Neurological: Negative. Hematological: Negative. Psychiatric/Behavioral: Negative. PAST SURGICAL HISTORY Procedure Laterality Date CARDIOVERSION 05/2020 TONSILLECTOMY HX PAST MEDICAL HISTORY Diagnosis Date Aortic sclerosis Atrial fibrillation (HCC) Cardiomyopathy (HCC) History of cardioversion HOCM (hypertrophic obstructive cardiomyopathy) (HCC) ~2012 Dx ~2012 w/u murmur. HTN (hypertension) ~2012 MR (mitral regurgitation) ~2012 Obstructive sleep apnea Sleep apnea Uses Cpap. Syncope ~2011 x1 in 2011 dehydrated, had a cold. Systolic anterior movement of mitral valve ~2012 Dx 2013. FAMILY HISTORY Problem Relation Age of Onset Stroke Mother Living age 60s. Does not know her well. H/o stroke at age 40s. other (Healthy) Father Living age 60s. Healthy. other (Healthy) Brother Living age 40s. Healthy. other (Healthy) Child 1 child, daughter. Living AND healthy age 23. other (Healthy) Grandchild 1 grandchild, grandson. Living AND healthy age 2 months. Social History Tobacco Use Smoking status: Former Current packs/day: 0.00 Average packs/day: 0.5 packs/day for 20.0 years (10.0 ttl pk-yrs) Types: Cigarettes Start date: 06/14/1992 Quit date: 06/14/2012 Years since quittin.8 Passive exposure: Past Smokeless tobacco: Former Types: Chew Quit date: 01/30/2014 Vaping Use Vaping status: Never Used Substance Use Topics Alcohol use: Not Currently Alcohol/week: 7.0 standard drinks of alcohol Types: 4 Shots of liquor, 3 Standard drinks or equivalent per week Drug use: No ALLERGIES No Known Allergies MEDICATIONS: CPAP/BIPAP/OTHER .CPAPSettings : auto settings 5-20. metoprolol succinate ER (TOPROL XL) 50 mg 24 hr tablet Take 50 mg by mouth once daily. rivaroxaban (XARELTO) 20 mg tablet Take 1 tablet by mouth every evening. With meal multivitamin tablet Take 1 tablet by mouth once daily. Allergies, past surgical history, family history and past medical history were reviewed per this encounter. Medications were reviewed and verified. 10/14/2023 04/15/2024 INTAKE PAIN ASSESSMENT Are you having pain associated with your visit today? No No If pain assessment is 0, no action needed. If pain assessment is positive, please see assessment and plain. Objective BP (P) 110/82 (BP Site: Left Arm, BP Position: Sitting, BP Cuff Size: Large Adult) Pulse (!) 47 Temp 36.3 ?C (97.3 ?F) (Temporal) Resp 16 Ht 182.9 cm (6') Wt (!) 162.8 kg (358 lb 12.8 oz) SpO2 94% BMI 48.66 kg/m? Physical Exam Vitals reviewed. Constitutional: Appearance: Normal appearance. HENT: Head: Normocephalic and atraumatic. Nose: Nose normal. Eyes: Extraocular Movements: Extraocular movements intact. Pupils: Pupils are equal, round, and reactive to light. Cardiovascular: Rate and Rhythm: Normal rate and regular rhythm. Pulmonary: Effort: Pulmonary effort is normal. Breath sounds: Normal breath sounds. Abdominal: General: Bowel sounds are normal. Palpations: Abdomen is soft. Musculoskeletal: General: Normal range of motion. Cervical back: Normal range of motion and neck supple. Skin: General: Skin is warm and dry. Capillary Refill: Capillary refill takes less than 2 seconds. Neurological: General: No focal deficit present. Mental Status: He is alert and oriented to person, place, and time. Mental status is at baseline. Psychiatric: Mood and Affect: Mood normal. Behavior: Behavior normal. Procedures Assessment and Plan Encounter Diagnosis ICD-10-CM 1. Wellness examination Z00.00 2. Screening for depression Z13.31 DEPRESSION SCREENING 3. Encounter for screening examination for other mental health and behavioral disorders Z13.39 ANXIETY SCREENING 4. Hypertension, essential I10 COMPREHENSIVE METABOLIC PANEL Improved and stable on current medication 5. Screening PSA (prostate specific antigen) Z12.5 PSA/PROSTATE SPECIFIC ANTIGEN SCREENING 6. Screening for deficiency anemia Z13.0 COMPLETE BLOOD COUNT AND DIFFERENTIAL 7. Pure hypercholesterolemia E78.00 COMPREHENSIVE METABOLIC PANEL LIPID PANEL BASIC Recheck lipids. 8. Hyperglycemia R73.9 HEMOGLOBIN A1C Check hemoglobin A1c 9. Hypertrophic cardiomyopathy (HCC) I42.2 Stable All [facility] (more content not included)...[facility] 04-22-2024 History of Present illness Narrative* David Pineda MD - 04/22/2024 10:46 AM EST Subjective Sharlene Dickson is a 53 year old male. Kameron presents today for his annual wellness visit. Additionally follows up for hypertension and hypertrophic cardiomyopathy. Both are well-controlled on current medication. Review of Systems Constitutional: Negative. HENT: Negative. Eyes: Negative. Respiratory: Negative. Cardiovascular: Negative. Gastrointestinal: Negative. Endocrine: Negative. Genitourinary: Negative. Musculoskeletal: Negative. Skin: Negative. Allergic/Immunologic: Negative. Neurological: Negative. Hematological: Negative. Psychiatric/Behavioral: Negative. PAST SURGICAL HISTORY Procedure Laterality Date CARDIOVERSION 05/2020 TONSILLECTOMY HX PAST MEDICAL HISTORY Diagnosis Date Aortic sclerosis Atrial fibrillation (HCC) Cardiomyopathy (HCC) History of cardioversion HOCM (hypertrophic obstructive cardiomyopathy) (HCC) ~2012 Dx ~2012 w/u murmur. HTN (hypertension) ~2012 MR (mitral regurgitation) ~2012 Obstructive sleep apnea Sleep apnea Uses Cpap. Syncope ~2011 x1 in 2011 dehydrated, had a cold. Systolic anterior movement of mitral valve ~2012 Dx 2013. FAMILY HISTORY Problem Relation Age of Onset Stroke Mother Living age 60s. Does not know her well. H/o stroke at age 40s. other (Healthy) Father Living age 60s. Healthy. other (Healthy) Brother Living age 40s. Healthy. other (Healthy) Child 1 child, daughter. Living & healthy age 23. other (Healthy) Grandchild 1 grandchild, grandson. Living & healthy age 2 months. Social History Tobacco Use Smoking status: Former Current packs/day: 0.00 Average packs/day: 0.5 packs/day for 20.0 years (10.0 ttl pk-yrs) Types: Cigarettes Start date: 06/14/1992 Quit date: 06/14/2012 Years since quittin.8 Passive exposure: Past Smokeless tobacco: Former Types: Chew Quit date: 01/30/2014 Vaping Use Vaping status: Never Used Substance Use Topics Alcohol use: Not Currently Alcohol/week: 7.0 standard drinks of alcohol Types: 4 Shots of liquor, 3 Standard drinks or equivalent per week Drug use: No ALLERGIES No Known Allergies MEDICATIONS: CPAP/BIPAP/OTHER .CPAPSettings : auto settings 5-20. metoprolol succinate ER (TOPROL XL) 50 mg 24 hr tablet Take 50 mg by mouth once daily. rivaroxaban (XARELTO) 20 mg tablet Take 1 tablet by mouth every evening. With meal multivitamin tablet Take 1 tablet by mouth once daily. Allergies, past surgical history, family history and past medical history were reviewed per this encounter. Medications were reviewed and verified. 10/14/2023 04/15/2024 INTAKE PAIN ASSESSMENT Are you having pain associated with your visit today? No No If pain assessment is 0, no action needed. If pain assessment is positive, please see assessment and plain. Objective BP (P) 110/82 (BP Site: Left Arm, BP Position: Sitting, BP Cuff Size: Large Adult) Pulse (!) 47 Temp 36.3 C (97.3 F) (Temporal) Resp 16 Ht 182.9 cm (6') Wt (!) 162.8 kg (358 lb 12.8 oz) SpO2 94% BMI 48.66 kg/m Physical Exam Vitals reviewed. Constitutional: Appearance: Normal appearance. HENT: Head: Normocephalic and atraumatic. Nose: Nose normal. Eyes: Extraocular Movements: Extraocular movements intact. Pupils: Pupils are equal, round, and reactive to light. Cardiovascular: Rate and Rhythm: Normal rate and regular rhythm. Pulmonary: Effort: Pulmonary effort is normal. Breath sounds: Normal breath sounds. Abdominal: General: Bowel sounds are normal. Palpations: Abdomen is soft. Musculoskeletal: General: Normal range of motion. Cervical back: Normal range of motion and neck supple. Skin: General: Skin is warm and dry. Capillary Refill: Capillary refill takes less than 2 seconds. Neurological: General: No focal deficit present. Mental Status: He is alert and oriented to person, place, and time. Mental status is at baseline. Psychiatric: Mood and Affect: Mood normal. Behavior: Behavior normal. Procedures Assessment and Plan Encounter Diagnosis ICD-10-CM 1. Wellness examination Z00.00 2. Screening for depression Z13.31 DEPRESSION SCREENING 3. Encounter for screening examination for other mental health and behavioral disorders Z13.39 ANXIETY SCREENING 4. Hypertension, essential I10 COMPREHENSIVE METABOLIC PANEL Improved and stable on current medication 5. Screening PSA (prostate specific antigen) Z12.5 PSA/PROSTATE SPECIFIC ANTIGEN SCREENING 6. Screening for deficiency anemia Z13.0 COMPLETE BLOOD COUNT AND DIFFERENTIAL 7. Pure hypercholesterolemia E78.00 COMPREHENSIVE METABOLIC PANEL LIPID PANEL BASIC Recheck lipids. 8. Hyperglycemia R73.9 HEMOGLOBIN A1C Check hemoglobin A1c 9. Hypertrophic cardiomyopathy (HCC) I42.2 Stable All open preventative health maintenance topics discussed with patient in detail. This includes risks and benefits regarding vaccines, cancer screening, healthy life style, and diet. Continue present medications. Check labs as above. Monitor blood pressure regularly. Exercise as tolerated. Maintain good diet. Follow-up in 6 months. David Pineda MD April 22, 2024 * Keya Grady LPN - 04/22/2024 9:47 AM EST Sharlene is here today for his annual wellness exam Depression Screening Negative Anxiety Screening Negative Hepatitis C Screening Never done HIV Screening Never done BP Controlled (<130/80) Never done DTaP,Tdap,Td Vaccine(1 - Tdap) Never done Hepatitis B Vaccine(1 of 3 - 19+ 3-dose series) Never done Lipid Screening Never done Pneumococcal Vaccine: 50+(1 of 1 - PCV) Never done Covid-19 Vaccine() due on 11/05/2023 Patient declines all of the above vaccines Patient has been having problems with his right hand A certain way he bends his hand causes pain down the center of it and some of his fingers go numb He was 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 Author Type: LICENSED NURSE Type: Progress Notes Filed: 04/22/2024 10:48 Note Text: Sharlene is here today for his annual wellness exam Depression Screening Negative Anxiety Screening Negative Hepatitis C Screening Never done HIV Screening Never done BP Controlled (<130/80) Never done DTaP,Tdap,Td Vaccine(1 - Tdap) Never done Hepatitis B Vaccine(1 of 3 - 19+ 3-dose series) Never done Lipid Screening Never done Pneumococcal Vaccine: 50+(1 of 1 - PCV) Never done Covid-19 Vaccine() due on 11/05/2023 Patient declines all of the above vaccines Patient has been having problems with his right hand A certain way he bends his hand causes pain down the center of it and some of his fingers go numb He was taken off of a job at work using a steel cut off saw Keya Grady LPN April 22, 2024 9:59 [facility] Telephone encounter Note * Telephone Encounter - Allison Moreno - 10/16/2023 10:31 AM EDTSummaranayeli: Work Excuse Work Excuse [facility]08-12-2024 Miscellaneous Notes* Telephone Encounter - Allison Moreno - 10/16/2023 10:31 AM EDTSummaranayeli: Work Excuse Work Excuse documented in this encounterSumma Health [facility]08-12-2024 History of Present illness Narrative* David Pineda MD - 10/16/2023 10:27 AM EDT Subjective Sharlene Dickson is a 53 year old male. Kameron presents today for follow-up for multiple medical problems. See list. His chronic medical problems are stable. His blood pressure is under good control on his current regimen. His A-fib has been stable. He denies any episodes of RVR. He continues on anticoagulation with Xarelto. Review of Systems Constitutional: Negative. HENT: Negative. Eyes: Negative. Respiratory: Negative. Cardiovascular: Negative. Gastrointestinal: Negative. Endocrine: Negative. Genitourinary: Negative. Musculoskeletal: Negative. Skin: Negative. Allergic/Immunologic: Negative. Neurological: Negative. Hematological: Negative. Psychiatric/Behavioral: Negative. PAST SURGICAL HISTORY 05/2020: CARDIOVERSION No date: TONSILLECTOMY HX PAST MEDICAL HISTORY No date: Aortic sclerosis No date: Atrial fibrillation (HCC) No date: Cardiomyopathy (HCC) No date: History of cardioversion ~2012: HOCM (hypertrophic obstructive cardiomyopathy) (HCC) Comment: Dx ~2012 w/u murmur. ~2012: HTN (hypertension) ~2013: MR (mitral regurgitation) No date: Obstructive sleep apnea No date: Sleep apnea Comment: Uses Cpap. ~2011: Syncope Comment: x1 in 2011 dehydrated, had a cold. ~2012: Systolic anterior movement of mitral valve Comment: Dx 2013. FAMILY HISTORY Problem Relation Age of Onset Stroke Mother Living age 60s. Does not know her well. H/o stroke at age 40s. other (Healthy) Father Living age 60s. Healthy. other (Healthy) Brother Living age 40s. Healthy. other (Healthy) Child 1 child, daughter. Living & healthy age 23. other (Healthy) Grandchild 1 grandchild, grandson. Living & healthy age 2 months. Social History Tobacco Use Smoking status: Former Packs/day: 0.50 Years: 20.00 Additional pack years: 0.00 Total pack years: 10.00 Types: Cigarettes Quit date: 06/14/2012 Years since quittin.3 Passive exposure: Past Smokeless tobacco: Former Types: Chew Quit date: 01/30/2014 Vaping Use Vaping Use: Never used Substance Use Topics Alcohol use: Not Currently Alcohol/week: 7.0 standard drinks of alcohol Types: 4 Shots of liquor, 3 Standard drinks or equivalent per week Drug use: No ALLERGIES No Known Allergies MEDICATIONS: CPAP/BIPAP/OTHER .CPAPSettings : auto settings 5-20. metoprolol succinate ER (TOPROL XL) 50 mg 24 hr tablet Take 50 mg by mouth once daily. rivaroxaban (XARELTO) 20 mg tablet Take 1 tablet by mouth every evening. With meal multivitamin tablet Take 1 tablet by mouth once daily. Allergies, past surgical history, family history and past medical history were reviewed per this encounter. Medications were reviewed and verified. Objective BP 130/76 (BP Site: Left Arm, BP Position: Sitting, BP Cuff Size: Regular Adult) Pulse 60 Temp 36.6 C (97.8 F) (Temporal) Resp 18 Ht 182.9 cm (6') Wt (!) 158.8 kg (350 lb) SpO2 97% BMI 47.47 kg/m Physical Exam Vitals reviewed. Constitutional: Appearance: Normal appearance. HENT: Head: Normocephalic and atraumatic. Nose: Nose normal. Eyes: Extraocular Movements: Extraocular movements intact. Pupils: Pupils are equal, round, and reactive to light. Cardiovascular: Rate and Rhythm: Normal rate and regular rhythm. Pulmonary: Effort: Pulmonary effort is normal. Breath sounds: Normal breath sounds. Abdominal: General: Bowel sounds are normal. Palpations: Abdomen is soft. Musculoskeletal: General: Normal range of motion. Cervical back: Normal range of motion and neck supple. Skin: General: Skin is warm and dry. Capillary Refill: Capillary refill takes less than 2 seconds. Neurological: General: No focal deficit present. Mental Status: He is alert and oriented to person, place, and time. Mental status is at baseline. Psychiatric: Mood and Affect: Mood normal. Behavior: Behavior normal. Assessment and Plan Encounter Diagnosis ICD-10-CM 1. Paroxysmal atrial fibrillation (HCC) I48.0 2. Hypertrophic cardiomyopathy (HCC) I42.2 3. 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 Check labs as above. Monitor blood pressure regularly. Exercise as tolerated. Maintain good diet. Follow-up in 6 months. David Pineda MD * Cande Saunders LPN - 10/16/2023 10:15 AM EDT Patient is in office for 6 month exam. Patient has no current complaints or concerns. No refills needed Cande Saunders LPN October 16, 2023 10:17 AM documented in this encounterSumma Health [facility]03-22-2024 History of Present illness Narrative* Cande Saunders LPN - 05/26/2023 11:16 AM EDT Results received from [facility] Added to lab results Scanned to chart Cande Saunders LPN May 26, 2023 11:17 AM documented in this [facility]02-12-2024 Miscellaneous Notes* Telephone Encounter - Allison Moreno - 04/17/2023 10:33 AM ESTSummary: Work Note Work Note for Employer documented in this [facility]02-12-2024 History of Present illness Narrative* David Pineda MD - 04/17/2023 10:24 AM EST Subjective Sharlene Dickson is a 52 year old male. Kameron presents today for annual wellness visit. Review of Systems Constitutional: Negative. HENT: Negative. Eyes: Negative. Respiratory: Negative. Cardiovascular: Negative. Gastrointestinal: Negative. Endocrine: Negative. Genitourinary: Negative. Musculoskeletal: Negative. Skin: Negative. Allergic/Immunologic: Negative. Neurological: Negative. Hematological: Negative. Psychiatric/Behavioral: Negative. PAST SURGICAL HISTORY Procedure Laterality Date CARDIOVERSION 05/2020 TONSILLECTOMY HX PAST MEDICAL HISTORY Diagnosis Date Aortic sclerosis Atrial fibrillation (HCC) Cardiomyopathy (HCC) History of cardioversion HOCM (hypertrophic obstructive cardiomyopathy) (HCC) ~2012 Dx ~2012 w/u murmur. HTN (hypertension) ~2012 MR (mitral regurgitation) ~2012 Obstructive sleep apnea Sleep apnea Uses Cpap. Syncope ~2011 x1 in 2011 dehydrated, had a cold. Systolic anterior movement of mitral valve ~2012 Dx 2012. FAMILY HISTORY Problem Relation Age of Onset Stroke Mother Living age 60s. Does not know her well. H/o stroke at age 40s. other (Healthy) Father Living age 60s. Healthy. other (Healthy) Brother Living age 40s. Healthy. other (Healthy) Child 1 child, daughter. Living & healthy age 23. other (Healthy) Grandchild 1 grandchild, grandson. Living & healthy age 2 months. Social History Tobacco Use Smoking status: Former Packs/day: 0.50 Years: 20.00 Additional pack years: 0.00 Total pack years: 10.00 Types: Cigarettes Quit date: 06/14/2012 Years since quittin.8 Passive exposure: Past Smokeless tobacco: Former Types: Chew Quit date: 01/30/2014 Vaping Use Vaping Use: Never used Substance Use Topics Alcohol use: Not Currently Alcohol/week: 7.0 standard drinks of alcohol Types: 4 Shots of liquor, 3 Standard drinks or equivalent per week Drug use: No ALLERGIES No Known Allergies MEDICATIONS: CPAP/BIPAP/OTHER .CPAPSettings : auto settings 5-20. metoprolol succinate ER (TOPROL XL) 50 mg 24 hr tablet Take 50 mg by mouth once daily. rivaroxaban (XARELTO) 20 mg tablet Take 1 tablet by mouth every evening. With meal multivitamin tablet Take 1 tablet by mouth once daily. Allergies, past surgical history, family history and past medical history were reviewed per this encounter. Medications were reviewed and verified. Objective BP 126/84 (BP Site: Left Arm, BP Position: Sitting, BP Cuff Size: Regular Adult) Pulse (!) 52 Temp 36.4 C (97.6 F) (Temporal) Resp 18 Ht 182.9 cm (6') Wt (!) 159.7 kg (352 lb) SpO2 97% BMI 47.74 kg/m Physical Exam Vitals reviewed. Constitutional: Appearance: Normal appearance. HENT: Head: Normocephalic and atraumatic. Nose: Nose normal. Eyes: Extraocular Movements: Extraocular movements intact. Pupils: Pupils are equal, round, and reactive to light. Cardiovascular: Rate and Rhythm: Normal rate and regular rhythm. Pulmonary: Effort: Pulmonary effort is normal. Breath sounds: Normal breath sounds. Abdominal: General: Bowel sounds are normal. Palpations: Abdomen is soft. Musculoskeletal: General: Normal range of motion. Cervical back: Normal range of motion and neck supple. Skin: General: Skin is warm and dry. Capillary Refill: Capillary refill takes less than 2 seconds. Neurological: General: No focal deficit present. Mental Status: He is alert and oriented to person, place, and time. Mental status is at baseline. Psychiatric: Mood and Affect: Mood normal. Behavior: Behavior normal. Assessment and Plan Encounter Diagnosis ICD-10-CM 1. Wellness examination Z00.00 2. Encounter for screening for depression Z13.31 DEPRESSION SCREENING/ASSESSMENT 3. Hypertension, essential I10 COMP METABOLIC PANEL 4. Screening PSA (prostate specific antigen) Z12.5 PSA/PROSTSPECAG SCRN 5. Screening for deficiency anemia Z13.0 CBC + DIFF 6. Pure hypercholesterolemia E78.00 LIPID PANEL BASIC All open preventative health maintenance topics discussed with patient in detail. This includes risks and benefits regarding vaccines, cancer screening, healthy life style, and diet. David Pineda MD * Cande Saunders LPN - 04/17/2023 10:08 AM EST DUE HEALTH MAINTENANCE Hepatitis B Vaccine(1 of 3 - 3-dose series) declined Hepatitis C Screening declined HIV Screening declined BP Controlled (<130/80) DTaP,Tdap,Td Vaccine(1 - Tdap) declined Lipid Screening Influenza Vaccine(1) stated in November at Work Covid-19 Vaccine(2022- season) declined No refills needed Cande Saunders LPN April 17, 2023 10:14 AM documented in this encounterSumma Health [facility]08-07-2023 History of Present illness Narrative* David Pineda MD - 10/10/2022 11:17 AM EDT This note was created using Gotuit. Subjective Sharlene Dickson is a 52 year old male presenting today for follow-up of chronic medical conditions. Sharlene has a history of atrial fibrillation. He follows with Dr. Mena of [place]. Sharlene has had two previous cardioversions which were initially effective. However, he has reverted back to A-fib within one year of cardioversion. He is scheduled to see an recreational resort manager Dr. Campbell in [place] this November for possible ablation. Sharlene continues on Toprol XL and Xarelto for treatment of A-fib. He does endorse dyspnea and palpitations while in active A-fib. Sharlene reports occasional increased heart rate around 130 bpm while sleeping but states this is not sustained. He is compliant with CPAP for sleep apnea at night and during naps and reports he cannot sleep without it. Sharlene states that his usual pulse is 70 to 80 bpm. Sharlene also has hypertension which is well-controlled. Blood pressure in clinic today is 122/86. Sharlene reports home blood pressures of 130/80. He denies chest pain, headaches, blurred vision. Sharlenehector reports diagnosis of unobstructive hypertrophic cardiomyopathy. Dr. Mena is managing this. Sharlene is considering Camzyos trial once it is approved for unobstructive hypertropic cardiomyopathy. Review of Systems Constitutional: Negative. HENT: Negative. Eyes: Negative. Respiratory: Positive for shortness of breath. Negative for apnea, cough, chest tightness and wheezing. Shortness of breath while in active A-fib. History of ARNAV but compliant with CPAP nightly and during naps. Cardiovascular: Positive for palpitations. Negative for chest pain and leg swelling. Positive for palpitations while in active A-fib. Occasional unsustained heart rate of 130 bpm during sleep. Usual heart rate 70 to 80 bpm. Gastrointestinal: Negative. Endocrine: Negative. Genitourinary: Negative. Musculoskeletal: Negative. Skin: Negative. Allergic/Immunologic: Negative. Neurological: Negative. Hematological: Negative. Psychiatric/Behavioral: Negative. Objective BP 122/86 (BP Site: Left Arm, BP Position: Sitting, BP Cuff Size: Regular Adult) Pulse 80 Temp 36.3 C (97.3 F) (Temporal) Resp 18 Ht 182.9 cm (6') SpO2 95% BMI 47.25 kg/m Physical Exam Constitutional: General: He is not in acute distress. Appearance: Normal appearance. He is obese. HENT: Head: Normocephalic and atraumatic. Right Ear: External ear normal. Left Ear: External ear normal. Nose: Nose normal. Eyes: Extraocular Movements: Extraocular movements intact. Pupils: Pupils are equal, round, and reactive to light. Cardiovascular: Rate and Rhythm: Normal rate. Rhythm irregular. Pulses: Normal pulses. Heart sounds: No murmur heard. Pulmonary: Effort: Pulmonary effort is normal. No respiratory distress. Breath sounds: Normal breath sounds. No wheezing, rhonchi or rales. Abdominal: General: Bowel sounds are normal. Palpations: Abdomen is soft. Musculoskeletal: General: Normal range of motion. Cervical back: Normal range of motion and neck supple. Right lower leg: No edema. Left lower leg: No edema. Skin: General: Skin is warm and dry. Capillary Refill: Capillary refill takes less than 2 seconds. Neurological: General: No focal deficit present. Mental Status: He is alert and oriented to person, place, and time. Psychiatric: Mood and Affect: Mood normal. Behavior: Behavior normal. Assessment and Plan Encounter Diagnosis ICD-10-CM 1. Paroxysmal atrial fibrillation (HCC) I48.0 Ongoing. Continue to follow with cardiology and electrophysiology. 2. Hypertrophic non-obstructive cardiomyopathy (HCC) I42.2 Ongoing. Continue to follow with cardiology. 3. Hypertension, essential I10 4. ARNAV (obstructive sleep apnea) G47.33 (I48.0) Paroxysmal atrial fibrillation (HCC) (primary encounter diagnosis) Comment: Ongoing. Plan: Continue present medications. Continue to follow with cardiology and electrophysiology. Continue to monitor heart rate and report episodes of sustained heart rate greater than 100 bpm. (I42.2) Hypertrophic non-obstructive cardiomyopathy (HCC) Comment: Ongoing. Plan: Continue to follow with cardiology. (I10) Hypertension, essential Comment: Stable. Plan: Continue present medications. Continue to monitor blood pressures at home and notify office if blood pressures remain consistently greater than 140/90. (G47.33) ARNAV (obstructive sleep apnea) Comment: Stable. He continues to benefit from the use of CPAP device. He has been using it regularly as directed. He is tolerating it well. Plan: Encouraged continued compliance with CPAP therapy. Follow-up in 6 months or sooner as needed. Melissa Milligan APRN, ORDER BUILDER LOADER I have seen and evaluated the patient with Melissa Milligan CNP. I agree with the evaluation assessment and plan. David Pineda MD * Cande Saunders LPN - 10/10/2022 11:10 AM EDT Patient is in office today for 6 month exam. Patient states that he is currently experiencing A Fib. Patient noticed on his watch, then followed up with Cardiology. Denies chest pains. Patient is currently using Cpap machine with positive therapeutic results. Patient states that he is using machine daily. Patient states he uses machine for naps and night sleep, for he is unable to sleep without it. No refills needed Cande Saunders LPN October 10, 2022 11:07 AM documented in this encounterSumma Health [facility]05-09-2023 Miscellaneous Notes* Telephone Encounter - Cande Saunders LPN - 07/12/2022 3:51 PM EDT Completed as requested. Fax confirmation received Cande Saunders LPN July 12, 2022 3:51 PM * Telephone Encounter - Allison Moreno - 07/12/2022 1:13 PM EDTSummary: Cpap Patients Magda called and is asking if last ovn can be faxed over for his new cpap machine? She wants it to go [facility] emergency department. documented in this encounterSumma Health [facility]05-02-2023 Miscellaneous Notes* Telephone Encounter - Yesika Rojas LPN - 07/05/2022 3:15 PM EDT Sent updated order to [facility] fax [phone] Yesika Rojas LPN * Telephone Encounter - David Pineda MD - 07/05/2022 1:11 PM EDT Settings Changed. Print order and send. * Addendum Note - David Pineda MD - 07/05/2022 1:10 PM EDTAddended by: DAVID PINEDA on: 07/05/2022 01:10 PM Modules accepted: Orders * Telephone Encounter - Yesika Rojas LPN - 07/05/2022 9:08 AM EDT Patient called in asking for the settings on his cpap to be changed to 5-20 due to this is his current setting on the cpap that is being replaced Yesika Rojas LPN documented in this encounterSumma Health [facility]05-01-2023 History of Present illness Narrative* David Pineda MD - 07/04/2022 1:34 PM EDT This note was created using Tysdoriter. Subjective Sharlene Dickson is a 51 year old male. Patient presents today for new CPAP device. Follow-up on his sleep apnea. He reports she has been using his device daily, and has had significant improvement of his sleep apnea with use of the device. He would like to continue using his sleep apnea machine. [employer] has reported it is due for replacement. He has auto settings on his current device. Review of Systems Constitutional: Negative. HENT: Negative. Eyes: Negative. Respiratory: Negative. Cardiovascular: Negative. Gastrointestinal: Negative. Endocrine: Negative. Genitourinary: Negative. Musculoskeletal: Negative. Skin: Negative. Allergic/Immunologic: Negative. Neurological: Negative. Hematological: Negative. Psychiatric/Behavioral: Negative. Objective BP 132/76 (BP Site: Left Arm, BP Position: Sitting, BP Cuff Size: Large Adult) Pulse 60 Temp 36C (96.8 F) (Temporal) Resp 18 Ht 182.9 cm (6') Wt (!) 158 kg (348 lb 6 oz) SpO2 99% BMI 47.25 kg/m Physical Exam Vitals reviewed. Constitutional: Appearance: Normal appearance. HENT: Head: Normocephalic and atraumatic. Nose: Nose normal. Eyes: Extraocular Movements: Extraocular movements intact. Pupils: Pupils are equal, round, and reactive to light. Cardiovascular: Rate and Rhythm: Normal rate and regular rhythm. Pulmonary: Effort: Pulmonary effort is normal. Breath sounds: Normal breath sounds. Abdominal: General: Bowel sounds are normal. Palpations: Abdomen is soft. Musculoskeletal: General: Normal range of motion. Cervical back: Normal range of motion and neck supple. Skin: General: Skin is warm and dry. Capillary Refill: Capillary refill takes less than 2 seconds. Neurological: General: No focal deficit present. Mental Status: He is alert and oriented to person, place, and time. Mental status is at baseline. Psychiatric: Mood and Affect: Mood normal. Behavior: Behavior normal. Assessment and Plan Encounter Diagnosis ICD-10-CM 1. ARNAV (obstructive sleep apnea) G47.33 PAP THERAPY ORDER CPAP/BIPAP/OTHER Order for new CPAP device for patient written. DME provider is [facility]. Continue current settings of auto. David Pineda MD * Camryn Romeo LPN - 07/04/2022 1:10 PM EDT Patient in office to follow up on obstructive sleep apnea. Patient states he needs a new CPAP machine. Patient states he is getting an error message about themotor is not working. No refills needed today. Camryn Romeo LPN July 04, 2022 1:08 PM documented in this encounterSumma Health [facility]01-30-2023 Miscellaneous Notes* Telephone Encounter - Allison Moreno - 04/04/2022 1:36 PM ESTSummary: Work Excuse . documented in this encounterSumma Health W[facility]01-30-2023 History of Present illness Narrative* David Pineda MD - 04/04/2022 1:24 PM EST This note was created using Our Family Kitchenter. Subjective Sharlene Dickson is a 51 year old male. Kameron presents today for his annual wellness exam. Review of Systems Constitutional: Negative. HENT: Negative. Eyes: Negative. Respiratory: Negative. Cardiovascular: Negative. Gastrointestinal: Negative. Endocrine: Negative. Genitourinary: Negative. Musculoskeletal: Negative. Skin: Negative. Allergic/Immunologic: Negative. Neurological: Negative. Hematological: Negative. Psychiatric/Behavioral: Negative. Objective BP 130/80 (BP Site: Right Arm, BP Position: Sitting) Pulse 64 Temp 36.3 C (97.3 F) (Temporal) Resp 14 Ht 182.9 cm (6') Wt (!) 158.8 kg (350 lb) SpO2 98% BMI 47.47 kg/m Physical Exam Vitals reviewed. Constitutional: Appearance: Normal appearance. HENT: Head: Normocephalic and atraumatic. Nose: Nose normal. Eyes: Extraocular Movements: Extraocular movements intact. Pupils: Pupils are equal, round, and reactive to light. Cardiovascular: Rate and Rhythm: Normal rate and regular rhythm. Pulmonary: Effort: Pulmonary effort is normal. Breath sounds: Normal breath sounds. Abdominal: General: Bowel sounds are normal. Palpations: Abdomen is soft. Musculoskeletal: General: Normal range of motion. Cervical back: Normal range of motion and neck supple. Skin: General: Skin is warm and dry. Capillary Refill: Capillary refill takes less than 2 seconds. Neurological: General: No focal deficit present. Mental Status: He is alert and oriented to person, place, and time. Mental status is at baseline. Psychiatric: Mood and Affect: Mood normal. Behavior: Behavior normal. Assessment and Plan Sharlene was seen today for yearly exam. Diagnoses and all orders for this visit: Wellness examination - COMP METABOLIC PANEL; Future Hypertension, essential - COMP METABOLIC PANEL; Future Paroxysmal atrial fibrillation (HCC) Obstructive sleep apnea Lipid screening - LIPID PANEL BASIC; Future Screening PSA (prostate specific antigen) - PSA/PROSTSPECAG SCRN; Future Screening for deficiency anemia - CBC + DIFF; Future documented in this encounterSumma Health [facility]07-25-2022 History of Present illness Narrative* David Pineda MD - 09/27/2021 2:06 PM EDT This note was created using [employer]. Subjective Sharlene Dickson is a 51 year old male. KIERSTEN Melo presents today for follow-up for his A. fib. He is doing well. Rate is controlled with metoprolol. He continues on Xarelto. He is tolerating this well. He has no new complaints today. He denies any chest pain shortness of breath. Review of Systems Constitutional: Negative. HENT: Negative. Eyes: Negative. Respiratory: Negative. Cardiovascular: Negative. Gastrointestinal: Negative. Endocrine: Negative. Genitourinary: Negative. Musculoskeletal: Negative. Skin: Negative. Allergic/Immunologic: Negative. Neurological: Negative. Hematological: Negative. Psychiatric/Behavioral: Negative. Objective BP 128/76 (BP Site: Left Arm, BP Position: Sitting, BP Cuff Size: Large Adult) Pulse (!) 52 Temp 36.6 C (97.8 F) (Temporal) Resp 18 Ht 182.9 cm (6') Wt (!) 142.3 kg (313 lb 12.8 oz) SpO2 96% BMI 42.56 kg/m Physical Exam Vitals reviewed. Constitutional: Appearance: Normal appearance. HENT: Head: Normocephalic and atraumatic. Nose: Nose normal. Eyes: Extraocular Movements: Extraocular movements intact. Pupils: Pupils are equal, round, and reactive to light. Cardiovascular: Rate and Rhythm: Normal rate and regular rhythm. Pulmonary: Effort: Pulmonary effort is normal. Breath sounds: Normal breath sounds. Abdominal: General: Bowel sounds are normal. Palpations: Abdomen is soft. Musculoskeletal: General: Normal range of motion. Cervical back: Normal range of motion and neck supple. Skin: General: Skin is warm and dry. Capillary Refill: Capillary refill takes less than 2 seconds. Neurological: General: No focal deficit present. Mental Status: He is alert and oriented to person, place, and time. Mental status is at baseline. Psychiatric: Mood and Affect: Mood normal. Behavior: Behavior normal. Assessment and Plan Sharlene was seen today for follow up. Diagnoses and all orders for this visit: Cardiomyopathy, hypertrophic nonobstructive (HCC) Atrial fibrillation, unspecified type (HCC) Hypertension, unspecified type Hypertrophic cardiomyopathy (HCC) Obstructive sleep apnea Colon cancer screening Encounter for screening for malignant neoplasm of prostate [facility] of Past illness Narrative* Problem Noted Date Resolved Date Hypertrophic cardiomyopathy 01/11/201703/08 Cardiomyopathy, hypertrophic nonobstructive 06/0404/04/2022 documented as of this encounter (statuses as of 04/04/2022) [facility] History of Past illness Narrative* Problem Noted Date Resolved Date Hypertrophic cardiomyopathy 01/11/201703/08 Cardiomyopathy, hypertrophic nonobstructive 06/0404/04/2022 documented as of this encounter (statuses as of 04/04/2022) [facility] History of Past illness Narrative* Problem Noted Date Resolved Date Hypertrophic cardiomyopathy 01/11/201703/08 Cardiomyopathy, hypertrophic nonobstructive 06/0404/04/2022 documented as of this encounter (statuses as of 07/04/2022) [facility] of Past illness Narrative* Problem Noted Date Resolved Date Hypertrophic cardiomyopathy 01/11/201703/08 Cardiomyopathy, hypertrophic nonobstructive /05/201504/04/2022 documented as of this encounter (statuses as of 07/05/2022) [place] [address]-08-2017 History of Past illness Narrative* Problem Noted Date Resolved Date Hypertrophic cardiomyopathy 01/11/201703/08 Cardiomyopathy, hypertrophic nonobstructive 04/1 05/201504/04/2022 documented as of this encounter (statuses as of 07/08/2022) [facility] History of Past illness Narrative* Problem Noted Date Resolved Date Hypertrophic cardiomyopathy 01/11/201703/08 Cardiomyopathy, hypertrophic nonobstructive /05/201504/04/2022 documented as of this encounter (statuses as of 07/13/2022) [place] [address]-08-2017 History of Past illness Narrative* Problem Noted Date Diagnosed Date Resolved Date Hypertrophic cardiomyopathy 01/11/2017 04/04/2022 Cardiomyopathy, hypertrophic nonobstructive 06/17/2015 04/04/2022 documented as of this encounter (statuses as of 09/12/2022) [place] [address]-08-2017 History of Past illness Narrative* Problem Noted Date Diagnosed Date Resolved Date Hypertrophic cardiomyopathy 01/11/2017 04/04/2022 Cardiomyopathy, hypertrophic nonobstructive 06/17/2015 04/04/2022 documented as of this encounter (statuses as of 10/10/2022) [facility] of Past illness Narrative* Problem Noted Date Diagnosed Date Resolved Date Hypertrophic cardiomyopathy 01/11/2017 04/04/2022 Cardiomyopathy, hypertrophic nonobstructive 06/17/2015 04/04/2022 documented as of this encounter (statuses as of 10/11/2022) [place] [address]-08-2017 History of Past illness Narrative* Problem Noted Date Diagnosed Date Resolved Date Hypertrophic cardiomyopathy 01/11/2017 04/04/2022 Cardiomyopathy, hypertrophic nonobstructive 06/17/2015 04/04/2022 documented as of this encounter (statuses as of 11/22/2022) [place] [address]-08-2017 History of Past illness Narrative* Problem Noted Date Diagnosed Date Resolved Date Hypertrophic cardiomyopathy 01/11/2017 04/04/2022 Cardiomyopathy, hypertrophic nonobstructive 06/17/2015 04/04/2022 documented as of this encounter (statuses as of 12/22/2022) [facility] of Past illness Narrative* Problem Noted Date Diagnosed Date Resolved Date Hypertrophic cardiomyopathy 01/11/2017 04/04/2022 Cardiomyopathy, hypertrophic nonobstructive 06/17/2015 04/04/2022 documented as of this encounter (statuses as of 04/17/2023) [facility] of Past illness Narrative* Problem Noted Date Diagnosed Date Resolved Date Hypertrophic cardiomyopathy 01/11/2017 04/04/2022 Cardiomyopathy, hypertrophic nonobstructive 06/17/2015 04/04/2022 documented as of this encounter (statuses as of 04/17/2023) [facility] of Past illness Narrative* Problem Noted Date Diagnosed Date Resolved Date Hypertrophic cardiomyopathy 01/11/2017 04/04/2022 Cardiomyopathy, hypertrophic nonobstructive 06/17/2015 04/04/2022 documented as of this encounter (statuses as of 05/26/2023) [facility] noteNo assessment information availableWBer[facility] Work Phone: Evaluation note* Diagnosis Cardiomyopathy, hypertrophic nonobstructive (HCC)- Primary Other hypertrophic cardiomyopathy Atrial fibrillation, unspecified type (HCC) Hypertension, unspecified type Hypertrophic cardiomyopathy (HCC) Other hypertrophic cardiomyopathy Obstructive sleep apnea Obstructive sleep apnea (adult) (pediatric) Colon cancer screening Special screening for malignant neoplasms, colon Encounter for screening for malignant neoplasm of prostate Special screening for malignant neoplasm of prostate [facility] Diagnosis Onset Date Resolution Status PAF (paroxysmal atrial fibrillation) acute Essential (primary) hypertension chronic Hypertrophic obstructive cardiomyopathy chronic ARNAV (obstructive sleep apnea) [facility] Work Phone: evaluation note* Diagnosis Wellness examination- Primary Hypertension, essential Unspecified essential hypertension Paroxysmal atrial fibrillation (HCC) Atrial fibrillation Obstructive sleep apnea Obstructive sleep apnea (adult) (pediatric) Lipid screening Screening for lipoid disorders Screening PSA (prostate specific antigen) Special screening for malignant neoplasm of prostate Screening for deficiency anemia Screening for other and unspecified deficiency anemia documented in this encounter [facility] note* Diagnosis ARNAV (obstructive sleep apnea)- Primary Obstructive sleep apnea (adult) (pediatric) [facility] ARNAV (obstructive sleep apnea) Obstructive sleep apnea (adult) (pediatric) documented in this [facility]* Diagnosis Paroxysmal atrial fibrillation (HCC)- Primary Atrial fibrillation Hypertrophic non-obstructive cardiomyopathy (HCC) Other hypertrophic cardiomyopathy Hypertension, essential Unspecified essential hypertension ARNAV (obstructive sleep apnea) Obstructive sleep apnea (adult) (pediatric) documented in this [facility]* Diagnosis Wellness examination- Primary Encounter for screening for depression Hypertension, essential Unspecified essential hypertension Screening PSA (prostate specific antigen) Special screening for malignant neoplasm of prostate Screening for deficiency anemia Screening for other and unspecified deficiency anemia Pure hypercholesterolemia documented in this [facility]* Diagnosis Paroxysmal atrial fibrillation (HCC)- Primary Atrial fibrillation Hypertrophic cardiomyopathy (HCC) Other hypertrophic cardiomyopathy ARNAV (obstructive sleep apnea) Obstructive sleep apnea (adult) (pediatric) jail current use of anticoagulant therapy Long-term (current) use of anticoagulants documented in this [facility]* Diagnosis Wellness examination- Primary Screening for depression Encounter for screening examination for other mental health and behavioral disorders Hypertension, essential Unspecified essential hypertension Screening PSA (prostate specific antigen) Special screening for malignant neoplasm of prostate Screening for deficiency anemia Screening for other and unspecified deficiency anemia Pure hypercholesterolemia Hyperglycemia Other abnormal glucose Hypertrophic cardiomyopathy (HCC) Other hypertrophic cardiomyopathy documented [facility] this [facility]* Diagnosis Hypertension, essential- Primary Unspecified essential hypertension Paroxysmal atrial fibrillation (HCC) Atrial fibrillation Hypertrophic cardiomyopathy (HCC) Other hypertrophic cardiomyopathy ARNAV (obstructive sleep apnea) Obstructive sleep apnea (adult) (pediatric) documented in this encounter [facility] for referral (narrative)No reason for referral information availableWBerger [facility] Work Phone: Summary Purpose Family History No Family History Records Found Relationship Condition Age at Onset Recorded Date/T keegan mother Cerebrovascular accident (CVA) Unknown Relationship Condition Age at Onset Recorded Date/T keegan Not Specified History of cardioversion Unknown mother Cerebrovascular accident (CVA) Unknown Advance Directives No Advanced Directives Records Found Advance Directive Response Recorded Date/ Time Advance Directives No March 26, 2021 11:42am Living Will No March 26 11:42am Power of Presales Consultant No March 26, 2021 11:42am Advance Directive Response Recorded Date/ Time Advance Directives No December 13, 2022 8:26am Living Will No October 10th, 20 23 8:26am Power of Presales Consultant No December 13, 2022 8:26am Advance Directive Response Recorded Date/ Time Living Will No December 13 8:26am Do you have a Healthcare Power of Presales Consultant? No December 13, 2022 8:26am Advance Directives No December 13, 2022 8:26am Chief Complaint and Reason for Visit Chief Complaint 9 M FU/MOVED FROM 09/07 OBSTRUCTIVE HYPERTROPHIC CARDIOMYOPAHTY Reason for Visit PAF (paroxysmal atri al fibrillation) Essential (primary) hypertension Hypertrophic obstructive cardiomyopathy ARNAV (obstructive sleep apnea) Chief Complaint 9 M FU/MOVED FROM 09/07 OBSTRUCTIVE HYPERTROPHIC CARDIOMYOPAHTY Obstructive hypertrophic cardiomyopathy Reason for Visit PAF (paroxysmal atri al fibrillation) Essential (primary) hypertension Hypertrophic obstructive cardiomyopathy ARNAV (obstructive sleep apnea) Chief Complaint HCM/ ADD LABS- SON Chief Complaint 1 Y FU back in atrial fib HarinderEdilson Reason for Visit PAF (paroxysmal atri al fibrillation) Essential (primary) hypertension Hypertrophic obstructive cardiomyopathy ARNAV (obstructive sleep apnea) Chief Complaint 6 M FU OBSTRUCTIVE HYPERTROPHIC CARDIOMYOPATHY Reason for Visit PAF (paroxysmal atri al fibrillation) Essential (primary) hypertension Hypertrophic obstructive cardiomyopathy ARNAV (obstructive sleep apnea) Chief Complaint Admit Date DYSPNEA/SOB May 27, 2024 1:4 1pm Chief Complaint Admit Date DYSPNEA/SOB May 27, 2024 1:4 1pm 6 M FU June 27, 2024 8:2 0am EAR PAIN August 28, 2024 4:45 pm Reason for Visit Admit Date Chest pain June 27, 2024 8:2 0am PAF (paroxysmal atrial fibrillation) Apr 2024 8:20am Essential (primary) hypertension June 052024 8:20am Hypertrophic obstructive cardiomyopathy June 27, 2024 8:20am ARNAV (obstructive sleep apnea) June 8:20am Additional Source Comments (unrecognized sect ion and content) No Status Records FoundNo Status Records FoundNo Status Records Found INFORMATION SOURCE (unrecogn ized section and content) DATE CREATED AUTHOR 09/05/2017 [facility] DATE CREATED AUTHOR AUTHOR'S ORGANIZ ATION 08/30/2024 [facility] DATE CREATED AUTHOR AUTHOR'S ORGANIZ ATION 10/21/2024 [facility] nter Source Comments (unrecognize d section and content) In the event this informatio n is protected by the Federal Confidentiality of Alcohol and Drug Abuse Patient Records regulations: The Federal rules restrict any use of the information to criminally investigate or prosecute any alcohol or drug abuse patient.[facility] CenterIn the event this information is protected by the Federal Confidentiality of Alcohol and Drug Abuse Patient Records regulations: The Federal rules restrict any use of the information to criminally investigate or prosecute any alcohol or drug abuse patient.[facility] Center[facility] the event this information is protected by the Federal Confidentiality of Alcohol and Drug Abuse Patient Records regulations: The Federal rules restrict any use of the information to criminally investigate or prosecute any alcohol or drug abuse patient.[facility] CenterIn the event this information is protected by the Federal Confidentiality of Alcohol and Drug Abuse Patient Records regulations: The Federal rules restrict any use of the information to criminally investigate or prosecute any alcohol or drug abuse patient.[facility] CenterIn the event this information is protected by the Federal Confidentiality of Alcohol and Drug Abuse Patient Records regulations: The Federal rules restrict any use of the information to criminally investigate or prosecute any alcohol or drug abuse patient.[facility] CenterIn the event this information is protected by the Federal Confidentiality of Alcohol and Drug Abuse Patient Records regulations: The Federal rules restrict any use of the information to criminally investigate or prosecute any alcohol or drug abuse patient.[facility] CenterIn the event this information is protected by the Federal Confidentiality of Alcohol and Drug Abuse Patient Records regulations: The Federal rules restrict any use of the information to criminally investigate or prosecute any alcohol or drug abuse patient.[facility] CenterIn the event this information is protected by the Federal Confidentiality of Alcohol and Drug Abuse Patient Records regulations: The Federal rules restrict any use of the information to criminally investigate or prosecute any alcohol or drug abuse patient.[facility] CenterIn the event this information is protected by the Federal Confidentiality of Alcohol and Drug Abuse Patient Records regulations: The Federal rules restrict any use of the information to criminally investigate or prosecute any alcohol or drug abuse patient.[facility] CenterIn the event this information is protected by the Federal Confidentiality of Alcohol and Drug Abuse Patient Records regulations: The Federal rules restrict any use of the information to criminally investigate or prosecute any alcohol or drug abuse patient.[facility] CenterIn the event this information is protected by the Federal Confidentiality of Alcohol and Drug Abuse Patient Records regulations: The Federal rules restrict any use of the information to criminally investigate or prosecute any alcohol or drug abuse patient.[facility] CenterIn the event this information is protected by the Federal Confidentiality of Alcohol and Drug Abuse Patient Records regulations: The Federal rules restrict any use of the information to criminally investigate or prosecute any alcohol or drug abuse patient.[facility] CenterIn the event this information is protected by the Federal Confidentiality of Alcohol and Drug Abuse Patient Records regulations: The Federal rules restrict any use of the information to criminally investigate or prosecute any alcohol or drug abuse patient.[facility] CenterIn the event this information is protected by the Federal Confidentiality of Alcohol and Drug Abuse Patient Records regulations: The Federal rules restrict any use of the information to criminally investigate or prosecute any alcohol or drug abuse patient.[facility] CenterIn the event this information is protected by the Federal Confidentiality of Alcohol and Drug Abuse Patient Records regulations: The Federal rules restrict any use of the information to criminally investigate or prosecute any alcohol or drug abuse patient.[facility] CenterIn the event this information is protected by the Federal Confidentiality of Alcohol and Drug Abuse Patient Records regulations: The Federal rules restrict any use of the information to criminally investigate or prosecute any alcohol or drug abuse patient.[facility] CenterIn the event this information is protected by the Federal Confidentiality of Alcohol and Drug Abuse Patient Records regulations: The Federal rules restrict any use of the information to criminally investigate or prosecute any alcohol or drug abuse patient.[facility] CenterIn the event this information is protected by the Federal Confidentiality of Alcohol and Drug Abuse Patient Records regulations: The Federal rules restrict any use of the information to criminally investigate or prosecute any alcohol or drug abuse patient.[facility] CenterIn the event this information is protected by the Federal Confidentiality of Alcohol and Drug Abuse Patient Records regulations: The Federal rules restrict any use of the information to criminally investigate or prosecute any alcohol or drug abuse patient.[facility] CenterIn the event this information is protected by the Federal Confidentiality of Alcohol and Drug Abuse Patient Records regulations: The Federal rules restrict any use of the information to criminally investigate or prosecute any alcohol or drug abuse patient.[facility] CenterIn the event this information is protected by the Federal Confidentiality of Alcohol and Drug Abuse Patient Records regulations: The Federal rules restrict any use of the information to criminally investigate or prosecute any alcohol or drug abuse patient.[facility] CenterIn the event this information is protected by the Federal Confidentiality of Alcohol and Drug Abuse Patient Records regulations: The Federal rules restrict any use of the information to criminally investigate or prosecute any alcohol or drug abuse patient.[facility] CenterIn the event this information is protected by the Federal Confidentiality of Alcohol and Drug Abuse Patient Records regulations: The Federal rules restrict any use of the information to criminally investigate or prosecute any alcohol or drug abuse patient.[facility] CenterIn the event this information is protected by the Federal Confidentiality of Alcohol and Drug Abuse Patient Records regulations: The Federal rules restrict any use of the information to criminally investigate or prosecute any alcohol or drug abuse patient.[facility] CenterIn the event this information is protected by the Federal Confidentiality of Alcohol and Drug Abuse Patient Records regulations: The Federal rules restrict any use of the information to criminally investigate or prosecute any alcohol or drug abuse patient.[facility] CenterIn the event this information is protected by the Federal Confidentiality of Alcohol and Drug Abuse Patient Records regulations: The Federal rules restrict any use of the information to criminally investigate or prosecute any alcohol or drug abuse patient.[facility] Care Teams (unrecognized sec tion and content) Refuse And Recycling Worker Relationship Specialty Start Date End Date David Pineda MD PCP - General Family Practice 06/16/15 Damian Moya MD [address] [place] [address] Primary Staff Physician Cardiology 05/22/18 Refuse And Recycling Worker Relationship Specialty Start Date End Date David Pineda MD PCP - General Family Practice 06/16/15 Damian Moya MD [address] [address] Primary Staff Physician Cardiology 05/22/18 Refuse And Recycling Worker Relationship Specialty Start Date End Date David Pineda MD PCP - General Family Practice 06/16/15 Damian Moya MD [address] [address] Primary Staff Physician Cardiology 05/22/18 Refuse And Recycling Worker Relationship Specialty Start Date End Date David Pineda MD PCP - General Family Medicine 06/16/15 Damian Moya MD [address] [address] Primary Staff Physician Cardiology 05/22/18 Refuse And Recycling Worker Relationship Specialty Start Date End Date David Pineda MD PCP - General Family Medicine 06/16/15 Damian Moya MD [address] [address] Primary Staff Physician Cardiology 05/22/18 Refuse And Recycling Worker Relationship Specialty Start Date End Date David Pineda MD PCP - General Family Medicine 06/16/15 Damian Moya MD [address] [address] Primary Staff Physician Cardiology 05/22/18 Team Status: Active Member Role Status Dates Dr. David Pineda MD Family Provider Active Dr. David Pineda MD Primary Care Provider Active Team Status: Active Member Role Status Dates Dr. David Pineda MD Primary Care Provider Active Dr. Dinesh Mena MD Attending Provider Active Team Status: Inactive Member Role Status Dates Dr. David Pineda MD Primary Care Provider, Other Pr ovider Active Lacy Mcgarry PA, PA Attending Provider, Referr ing Provider Active Refuse And Recycling Worker Relationship Specialty Start Date End Date David Pineda MD PCP - General Family Medicine 06/16/15 Damian Moya MD [address] [address] Primary Staff Physician Cardiology 05/22/18 Refuse And Recycling Worker Relationship Specialty Start Date End Date David Pineda MD PCP - General Family Medicine 06/16/15 Damian Moya MD [address] [address] Primary Staff Physician Cardiology 05/22/18 Refuse And Recycling Worker Relationship Specialty Start Date End Date David Pineda MD PCP - General Family Medicine 06/16/15 Damian Moya MD [address] [address] Primary Staff Physician Cardiology 05/22/18 Refuse And Recycling Worker Relationship Specialty Start Date End Date David Pineda MD PCP - General Family Medicine 06/16/15 Damian Moya MD [address] [address] Primary Staff Physician Cardiology 05/22/18 Refuse And Recycling Worker Relationship Specialty Start Date End Date David Pineda MD PCP - General Family Medicine 06/16/15 Damian Moya MD [address] [place] [address] Primary Staff Physician Cardiology 05/22/18 Team Status: Inactive Member Role Status Dates Dr. David Pineda MD Primary Care Provider, Referrin g Provider Active Dr. Dinesh Mena MD Attending Provider Active Team Status: Inactive Member Role Status Dates Dr. David Pineda MD Primary Care Prov ider, Attending Provider, Referring Provider Active [employer] Worker Relationship Specialty Start Date End Date David Pineda MD [address] [place] [address] PCP - General Family Medicine 06/16/15 Damian Moya MD [address] [place] [address] Primary Staff Physician Cardiology 05/22/18 Justino Singh [address] [place] [address] Gastroenterology 02/03/21 Refuse [employer] Recycling Worker Relationship Specialty Start Date End Date David Pineda MD [address] [place] [address] PCP - General Family Medicine 06/16/15 Damian Moya MD [address] [place] [address] Primary Staff Physician Cardiology 05/22/18 Justino Singh [address] [place] [address] Gastroenterology 02/03/21 Refuse And Recycling Worker Relationship Specialty Start Date End Date David Pineda MD [address] [place] [address] PCP - General Family Medicine 06/16/15 Damian Moya MD [address] [place] [address] Primary Staff Physician Cardiology 05/22/18 Justino Singh [address] [place] [address] Gastroenterology 02/03/21 Refuse And Recycling Worker Relationship Specialty Start Date End Date David Pineda MD [address] [place] [address] PCP - General Family Medicine 06/16/15 Damian Moya MD [address] [place] [address] Primary Staff Physician Cardiology 05/22/18 Justino Singh MD [address] [place] [address] Gastroenterology 02/03/21 Refuse And Recycling Worker Relationship Specialty Start Date End Date David Pineda MD [address] [place] [address] PCP - General Family Medicine 06/16/15 Damian Moya MD [address] [place] [address] Primary Staff Physician Cardiology 05/22/18 Justino Singh MD [address] [facility] [address] [place] [address] Gastroenterology 02/03/21 Lacy Mcgarry PA [address] [place] [address] Pulmonary and Critical Care Medicine 09/09/22 Dinesh Mena MD [address] [facility] [address] [place] [address] Cardiology 04/14/22 Refuse And Recycling Worker Relationship Specialty Start Date End Date David Pineda MD [address] [place], [place] [address] PCP - General Family Medicine 06/16/15 Damian Moya MD [address] [facility] [address] [place], [place] [id number] Primary Staff Physician Cardiology 05/22/18 Justino Singh MD [address] [facility] [address] [place] [address] Gastroenterology 02/03/21 Lacy Mcgarry PA [address] [place] [address] Pulmonary and Critical Care Medicine 09/09/22 Dinesh Mena MD [address] [facility] [address] [place] [address] Cardiology 04/14/22 Team Status: Inactive Member Role Status Dates Dr. David Pineda MD Primary [facility], [facility] Active Lacy HADDAD, PA Attending Provider Active Team Status: Inactive Member Role Status Dates Dr. David Pineda MD Primary Care Provider Active Lacy Mcgarry PA, PA Attending Provider, Referr ing Provider Active [employer] Worker Relationship Specialty Start Date End Date David Pineda MD [address] [place] [address] PCP - General Family Medicine 06/16/15 Damian Moya MD [address] [place] [address] Primary Staff Physician Cardiology 05/22/18 Justino Singh MD [address] [place] [address] Gastroenterology 02/03/21 Lacy Mcgarry PA [address] [place] [address] Pulmonary and Critical Care Medicine 09/09/22 Dinesh Mena MD [address] [facility] [address] [place] [address] Cardiology 04/14/22 Refuse And Recycling Worker Relationship Specialty Start Date End Date David Pineda MD [address] [place] [address] PCP - General Family Medicine 06/16/15 Damian Moya MD [address] [place] [address] Primary Staff Physician Cardiology 05/22/18 Justino Singh MD [address] [place] [address] Gastroenterology 02/03/21 Lacy Lerma PA-C [address] [place] [address] Pulmonary and Critical Care Medicine 09/09/22 Dinesh Mena MD [address] [place] [address] Cardiology 04/14/22 Refuse And Recycling Worker Relationship Specialty Start Date End Date David Pineda MD [address] [place] [address] PCP - General Family Medicine 06/16/15 Damian Moya MD [address] [place], [place] [id number] Primary Staff Physician Cardiology 05/22/18 Justino Singh MD [address] [place] [address] Gastroenterology 02/03/21 Lacy Lerma PA-C [address] [place] [address] Pulmonary and Critical Care Medicine 09/09/22 Dinesh Mena MD [address] [place] [address] Cardiology 04/14/22 Refuse And Recycling Worker Relationship Specialty Start Date End Date David Pineda MD [address] [place] [address] PCP - General Family Medicine 06/16/15 Damian Moya MD [address] [place] [address] Primary Staff Physician Cardiology 05/22/18 Justino Singh MD [address] [place] [address] Gastroenterology 02/03/21 Lacy Lerma PA-C [address] [place] [address] Pulmonary and Critical Care Medicine 09/09/22 Dinesh Mena MD [address] [place] [address] Cardiology 04/14/22 Refuse And Recycling Worker Relationship Specialty Start Date End Date David Pineda MD [address] [place] [address] PCP - General Family Medicine 06/16/15 Damian Moya MD [address] [place] [address] Primary Staff Physician Cardiology 05/22/18 Justino Singh MD [address] [place] [address] Gastroenterology 02/03/21 Lacy Mcgarry PA-C [address] [place] [address] Pulmonary and Critical Care Medicine 09/09/22 Dinesh Mena MD [address] [place] [address] Cardiology 04/14/22 Refuse And Recycling Worker Relationship Specialty Start Date End Date David Pineda MD [address] [place] [address] PCP - General Family Medicine 06/16/15 Damian Moya MD [address] [place] [address] Primary Staff Physician Cardiology 05/22/18 Justino Singh MD [address] [place], [place] [address] Gastroenterology 02/03/21 Lacy Mcgarry PA-C [address] [place], [place] [id number] Pulmonary and Critical Care Medicine 09/09/22 Dinesh Mena MD [address] [place], [place] [id number] Cardiology 04/14/22 Team Status: Active Member Role Status Dates Dr. David Pineda MD Primary Care Provider Active Team Status: Inactive Member Role Status Dates Dr. David Pineda MD Primary Care Provider Active Start: May 27, 2024 End: May 27, 2024 Lacy HADDAD, PA Attending Provider Active Start: May 27, 2024 End: May 27, 2024 Lacy HADDAD PA Referring Provider Active Start: May 27, 2024 End: May 27, 2024 Team Status: Active Member Role Status Dates Dr. David Pineda MD Primary Care Provider Active Start: May 27, 2024 Dr. Dinesh Mena MD Attending Provider Active S tart: May 27, 2024 Team Status: Inactive Member Role Status Dates Dr. David Pineda MD Primary Care Provider Active Start: June 27, 2024 End: June 27, 2024 Dr. David Pineda MD Referring Provider Active Start: June 27, 2024 End: June 27, 2024 Harjit Rivear [employer], [employer]-C Attending Provider Active S tart: June 27, 2024 End: June 27, 2024 Team Status: Inactive Member Role Status Dates Dr. Davdi Pineda MD Primary Care Provider Active Start: August 28, 2024 End: August 28, 2024 Dr. David Pineda MD Referring Provider Active Start: August 28, 2024 End: August 28, 2024 Filippo HADDAD, PA Attending Provider Active Start: August 28, 2024 End: August 28, 2024 Refuse And Recycling Worker Relationship Specialty Start Date End Date David Pineda MD [address] [place] [address] PCP - General Family Medicine 06/16/15 Damian Moya MD [address] [place] [address] Primary Staff Physician Cardiology 05/22/18 Justino Singh MD [address] [place], [place] [address] Gastroenterology 02/03/21 Lacy Mcgarry PA-C [address] [place] [address] Pulmonary and Critical Care Medicine 09/09/22 Dinesh Mena MD [address] [place], [place] [id number] Cardiology 04/14/22 Goals (unrecognized section and content) Goals may be documented in a n alternate sectionGoals may be documented in an alternate sectionGoals may be documented in an alternate sectionGoals may be documented in an alternate sectionGoals may be documented in an alternate sectionGoals may be documented in an alternate sectionGoals may be documented in an alternate sectionGoals may be documented in an alternate section Reason for Visit (unrecogniz ed section and content) Reason Comments Follow Up general health Reason Comments Results Reason Comments Yearly Exam Wellness CPE Reason Comments Follow Up Reason Comments Patient Update Reason Comments Opened In Error Reason Comments Patient Question Reason Comments 6 Month Exam Specialty Diagnoses / Procedures Referred By Contac t Referred To Contact FAMILY MEDICINE Diagnoses 6 Month Follow Up left VM to reschedule 09/07/34 Procedures EST PATIENT David Pineda MD [address] [place] [address] David Pineda MD [address] [place] [address] Referral ID Status Reason Start Date Expiration Date Visits Requested Visits Authorized [id number] Pending Review OON/Self Pay Override 10/10/2022 01/08/2023 1 1 Reason Comments Work Note Reason Comments Wellness Reason Comments Letter Reason Comments Yearly Exam FOR RECORDS PERTAINING TO PATIENTS WHO ARE OR HAVE BEEN ENROLLED IN A CHEMICAL DEPENDENCY/SUBSTANCEABUSE PROGRAM, SOME INFORMATION MAY BE OMITTED. This clinical summary was aggregated from multiple sources. Caution should be exercised in using it in the provision of clinical care. This summary normalizes information from multiple sources, and as a consequence, information in this document may materially change the coding, format and clinical context of patient data. In addition, data may be omitted in some cases. CLINICAL DECISIONS SHOULD BE BASED ON THE PRIMARY CLINICAL RECORDS. [facility]. provides no warranty or guarantee of the accuracy or completeness of information in this document.
== END | disposition home or self-care (01) ==
PROVIDERS: PCP Family Medicine; Referring Provider Physician Assistant Medical; Visit Provider Physician Assistant Medical
DX: R00.2 Palpitations (principal)
CPT/HCPCS: 93225; 93226